=== PATIENT | male | born 1965 | race Caucasian/White ===

== ENCOUNTER → 2021-10-27 09:58 | Outpatient (BNVA) | payer MEDICARE, SELFPAY | PROVIDERS: Visit Provider Family Medicine | DX: M79.641 Pain in right hand (principal); M79.642 Pain in left hand; M79.7 Fibromyalgia; F32.9 Major depressive disorder, single episode, unspecified; K51.919 Ulcerative colitis, unspecified with unspecified complications; K21.9 Gastro-esophageal reflux disease without esophagitis; Z68.27 Body mass index [BMI] 27.0-27.9, adult | CPT/HCPCS: 80053; 85025; 85651; 86038; 86140; 86200; 86431 ==

== ENCOUNTER → 2022-09-12 09:27 | Outpatient (BNVA) | payer MEDICARE, SELFPAY | PROVIDERS: PCP Family Medicine; Visit Provider Family Medicine | DX: R35.1 Nocturia (principal); Z13.6 Encounter for screening for cardiovascular disorders; K51.00 Ulcerative (chronic) pancolitis without complications; Z51.81 Encounter for therapeutic drug level monitoring | CPT/HCPCS: 80053; 80061; 84153; 85025; 86140 ==

== ENCOUNTER 2023-03-16 10:11 | Outpatient (CLI) | payer MEDICARE, SELFPAY ==
--- NOTE | 2023-03-16 10:31 | XRR_ITS ---
PROCEDURE INFORMATION: Exam: XR Right Hand Exam date and time: 03/16/2023 10:38 AM Age: 57 years old Clinical indication: Hand; Right; Patient HX: Patient has 2nd & 3rd mcp pain for 1 year TECHNIQUE: Imaging protocol: Radiologic exam of the right hand. Views: 3 or more views. COMPARISON: No relevant prior studies available. FINDINGS: Bones/joints: No fracture, dislocation or other acute bone or joint abnormality. Chronic degenerative changes are present with joint space narrowing and mild sclerosis predominantly in the 1st metacarpophalangeal joint in the DIP joint of the little finger. Soft tissues: Normal. XR/XR hand RT min 3V* [id number] IMPRESSION: Scattered degenerative disease. No acute abnormality.
== END 2023-03-16 10:12 | disposition home or self-care (01) ==
PROVIDERS: PCP Family Medicine; Visit Provider Family Medicine
DX: M79.641 Pain in right hand (principal); R93.7 Abnormal findings on diagnostic imaging of other parts of musculoskeletal system
CPT/HCPCS: 73130; 80053; 80061; 85025; 86140

== ENCOUNTER 2023-07-09 15:00 | Observation (INO) | payer MEDICARE, SELFPAY ==
[2023-07-09] VITALS (24 sets, daily range): BP systolic 112–179; BP diastolic 71–107; PULSE 62–81; RESP 15–26; TEMP 36.4–36.9; O2SAT 90–100; BMI 30.4
--- NOTE | 2023-07-09 15:02 | XR_ITS ---
WS: [id number] PORTABLE CHEST HISTORY: cp COMPARISON: None available. Lungs are clear and well expanded. Minimal blunting of the LEFT costophrenic angle. No pneumothorax. Cardiac size: Normal. Mediastinum/Aorta: Mild atherosclerosis aorta. No osseous abnormality seen. IMPRESSION: 1. No pneumonia. 2. Very minimal blunting of the LEFT costophrenic angle. Tiny effusion versus pleural thickening.
--- NOTE | 2023-07-09 15:14 | W.ED.CHESTPA ---
HPI - Chest Pain General: Chief Complaint: Chest Pain Stated Complaint: chest pain,tingling in hands/arms Time Seen by Provider: 07/09/23 15:02 Source: patient Mode of arrival: ambulatory Limitations: no limitations History of Present Illness: Patient is a 58-year-old male who presents the emergency room with chest pain. Patient states that he went to urgent care approximately 1 hour ago and was sent over here for evaluation. Patient rates chest pain a 5/10 on pain scale. Patient states chest pain started around 11 AM this morning, left chest wall radiating to bilateral wrist/hands. States chest pain originated out of nowhere it was not exerting himself. Does report that he has a past medical history of anxiety but this seemed to feel different. States that he did take a Tums immediately with symptoms but did not have any relief. Denies any other worsening or improving factors. Denies any nausea, vomiting, shortness of breath, or abdominal pain. No other complaints at this time. MD complaint: chest pain Onset (ago): hour(s) (4) Pain location: left chest Pain scale (0-10): 5 Associated symptoms: Reports no associated symptoms; Deny abdominal pain, dyspnea, fever(s), nausea or vomiting Review of Systems Const: Denies: fever(s) or chills Eyes: Denies: change in vision or blurry vision ENMT: Denies: throat pain or mouth pain Card: Reports: chest pain Resp: Denies: dyspnea or productive cough GI: Denies: abdominal pain, nausea or vomiting : Denies: flank pain or difficulty urinating Musc: Denies: neck pain or back pain Neuro: Denies: headache(s) Psych: Reports: anxiety PFSH ED PFSH: Medical History Fibromyalgia Major depression Ulcerative colitis Surgical History H/O vasectomy History of appendectomy History of shoulder surgery Right - x3 (scope) History of tonsillectomy Family History Other Aortic aneurysm Brain aneurysm Social History Smoking and tobacco status: former smoker Alcohol intake: current Alcohol intake frequency: 0-2 Drinks per Day Alcohol type: beer and hard liquor Substance/Drug Use: current Other substance/drug use details: THC IN PAST - USES CBD OIL NOW Physical Exam Const: COMMON NORMALS: patient oriented x3 and alert GENERAL APPEARANCE: cooperative ORIENTATION/CONSCIOUSNESS: Yes awake HENMT: COMMON NORMALS: normocephalic HEAD & SCALP: normal to inspection and normocephalic Eye: COMMON NORMALS: Equal, round and reactive pupils present and EOMs intact bilaterally PUPIL: Yes Equal, round and reactive pupils present Neck/C-Spine: COMMON NORMALS: full ROM and no JVD Lymph: LYMPHATIC: no lymphadenopathy noted Chest: CHEST: Yes Symmetrical chest wall rise Resp: COMMON NORMALS: normal respiratory effort and clear to auscultation bilaterally EFFORT & INSPECTION: Yes symmetric chest movement AUSCULTATION: clear to auscultation bilaterally Cardio: COMMON NORMALS: no JVD, regular rate, S1 normal heart sound present and Peripheral pulses 2+ throughout RATE: regular rate HEART SOUNDS: S1 normal heart sound present PERIPHERAL PULSES: Peripheral pulses 2+ throughout GI: COMMON NORMALS: Normal to inspection, nondistended, normoactive bowel sounds present : COMMON NORMALS: Yes no CVA tenderness BLADDER/KIDNEY EXAM: Yes no CVA tenderness Back/Pelvis: COMMON NORMALS: no CVA tenderness Extremity: GENERAL: Yes normal exam except as noted Neuro: COMMON NORMALS: patient oriented x3 SENSORIUM/ORIENTATION: Yes alert Psych: MOOD & AFFECT: Yes anxious Course Vital Signs: Vital signs: Vital Signs Temperature 97.6 F 07/09/23 15:01 Pulse Rate 65 07/09/23 16:14 Respiratory Rate 19 H 07/09/23 16:14 Blood Pressure 135/76 07/09/23 16:14 Pulse Oximetry 92 07/09/23 16:14 Oxygen Delivery Me thod Room Air 07/09/23 16:14 MDM - Chest Pain Medical Decision Making Patient presents for chest pain EKG here shows T wave inversion in V1 first troponin 26 his pain here is resolved after nitro will admit for observation for ACS rule out no signs of dissection or pulmonary embolism. Medical Records I reviewed the patient's medical records. Lab Data I reviewed the patient's lab results. 07/09/23 15:54 07/09/23 15:54 Laboratory Results WBC 8.25 10^3/uL (3.29-11.43) 07/09/23 15:54 RBC 4.69 10^6/uL (3.85-5.65) 07/09/23 15:54 Hgb 14.60 g/dL (11.27-16.99) 07/09/23 15:54 Hct 43.7 % (37-53) 07/09/23 15:54 MCV 93.2 fl (82-101) 07/09/23 15:54 MCH 31.1 pg (27-33) 07/09/23 15:54 MCHC 33.4 g/dL (30-55) 07/09/23 15:54 RDW 12.6 % (12.1-15.1) 07/09/23 15:54 Plt Count 327 10^3/cmm (157-399) 07/09/23 15:54 MPV 11.5 fL (7.4-10.4) H 07/09/23 15:54 Neut % (Auto) 72.2 % 07/09/23 15:54 Lymph % (Auto) 15.6 % 07/09/23 15:54 Evangeline % (Auto) 10.1 % 07/09/23 15:54 Eos % (Auto) 1.3 % 07/09/23 15:54 Baso % (Auto) 0.4 % 07/09/23 15:54 Neut # (Auto) 5.96 10^3/uL (1.8-7.7) 07/09/23 15:54 Lymph # (Auto) 1.3 10^3/uL (0.8-4.8) 07/09/23 15:54 Evangeline # (Auto) 0.8 10^3/uL (0.2-0.9) 07/09/23 15:54 Eos # (Auto) 0.1 10^3/uL (0.0-0.8) 07/09/23 15:54 Baso # (Auto) 0.0 10^3/uL (0.0-0.1) 07/09/23 15:54 Nucleated RBC % (auto) 0 % 07/09/23 15:54 Nucleated RBCs # 0.0 /100WBC 07/09/23 15:54 PT 12.60 SECONDS (12.1-14.9) 07/09/23 15:54 INR 0.91 (0.8-1.2) 07/09/23 15:54 Sodium 138 mmol/L (136-145) 07/09/23 15:54 Potassium 4.1 mmol/L (3.5-5.1) 07/09/23 15:54 Chloride 103 mmol/L (98-107) 07/09/23 15:54 Carbon Dioxide 26 mmol/L (22-29) 07/09/23 15:54 Anion Gap 13.1 (5-19) 07/09/23 15:54 BUN 19 mg/dL (6-20) 07/09/23 15:54 Creatinine 1.1 mg/dL (0.7-1.2) 07/09/23 15:54 GFR Calculation 68.5 mL/min (90-130) L 07/09/23 15:54 Glucose 91 mg/dL (65-115) 07/09/23 15:54 Calculated Osmolality 288 mOsm/kg (285-295) 07/09/23 15:54 Calcium 9.7 mg/dL (8.5-10.5) 07/09/23 15:54 Total Bilirubin 0.2 mg/dL (0.15-1.2) 07/09/23 15:54 AST 24 U/L (0-40) 07/09/23 15:54 ALT 28 U/L (0-41) 07/09/23 15:54 Alkaline Phosphatase 57 U/L (40-130) 07/09/23 15:54 Troponin T Baseline 26 ng/L (0-15) H 07/09/23 15:54 Total Protein 6.7 g/dL (6.6-8.7) 07/09/23 15:54 Albumin 4.4 g/dL (3.5-5.2) 07/09/23 15:54 Globulin 2.3 g/dL (1.3-4.6) 07/09/23 15:54 Lipase 44 U/L (13-60) 07/09/23 15:54 All radiology interpretation(s) finalized by discharge Discharge Plan Discharge Patient Disposition: Placed in Observation Admit Provider: Evelio Cardona Clinical Impression: Chest pain Coding Level of Care Code ED Waters[place] Coordinator for Fadumog Oksana
--- NOTE | 2023-07-09 15:21 | ECG_ITS ---
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 Measurements Intervals [place] Rate: 67 P: 39 MD: 154 QRS: -1 QRSD: 94 T: 33 QT: 386 QTc: 410 Interpretive Statements SINUS RHYTHM POSSIBLE LEFT ATRIAL ENLARGEMENT [-0.1mV P-WAVE IN V1/V2] LOW QRS VOLTAGE IN PRECORDIAL LEADS [QRS DEFLECTION < 1.0 mV IN CHEST LEADS] MINIMAL ST DEPRESSION [0.025+ mV ST DEPRESSION] No previous ECG available for comparison Electronically Signed On 07-09-2023 15:28:41 CDT by Hari Quiñones M.D. [id number]
[2023-07-09] MEDS: aspirin 81 mg Chew Tablet 324 MG PO (15:33)
[2023-07-09] MEDS: nitroglycerin 0.4 mg sublingual Tablet SUBLINGUAL (15:35)
[2023-07-09 16:05] LABS: Basophils % 0.4 %; Eosinophils # 0.1 10^3/uL (0.0-0.8); Eosinophils % 1.3 %; Hematocrit 43.7 % (37-53); Lymphocytes # 1.3 10^3/uL (0.8-4.8); Lymphocytes % 15.6 %; Mean Corpuscular HGB Conc 33.4 g/dL (30-55); Mean Corpuscular Hemoglobin 31.1 pg (27-33); Mean Corpuscular Volume 93.2 fl (82-101); Mean Platelet Volume 11.5 fL (7.4-10.4); Monocytes # 0.8 10^3/uL (0.2-0.9); Monocytes % 10.1 %; Neutrophils # 5.96 10^3/uL (1.8-7.7); Neutrophils % 72.2 %; Nucleated Red Blood Cells % 0 %; Platelet Count 327 10^3/cmm (157-399); Red Blood Count 4.69 10^6/uL (3.85-5.65); Red Cell Distribution Width 12.6 % (12.1-15.1); White Blood Count 8.25 10^3/uL (3.29-11.43)
[2023-07-09 16:21] LABS: INR 0.91 (0.8-1.2)
[2023-07-09 16:26] LABS: Alanine Aminotransferase 28 U/L (0-41); Albumin Level 4.4 g/dL (3.5-5.2); Alkaline Phosphatase 57 U/L (40-130); Anion Gap 13.1 (5-19); Aspartate Amino Transferase 24 U/L (0-40); Blood Urea Nitrogen 19 mg/dL (6-20); Calcium 9.7 mg/dL (8.5-10.5); Carbon Dioxide 26 mmol/L (22-29); Chloride 103 mmol/L (98-107); Globulin 2.3 g/dL (1.3-4.6); Glomerular Filtration Rate 68.5 mL/min (90-130); Glucose 91 mg/dL (65-115); Lipase 44 U/L (13-60); Osmolality Calculated 288 mOsm/kg (285-295); Potassium 4.1 mmol/L (3.5-5.1); Sodium 138 mmol/L (136-145); Total Bilirubin 0.2 mg/dL (0.15-1.2); Total Protein 6.7 g/dL (6.6-8.7)
[2023-07-09 16:27] LABS: Troponin(5th) Baseline 26 ng/L (0-15)
--- NOTE | 2023-07-09 16:56 | PM.HP ---
Providers/Chief Complaint Admitting Physician: Evelio Cardona MD Primary Care Provider: Kym Murphy DO Chief Complaint: chest pain,tingling in hands/arms History of Present Illness Antolin Garcia is a 58 year old male with a past medical history significant for ulcerative colitis on Humira, dyslipidemia, and fibromyalgia who presents to the emergency department with chest pain. Reports onset this morning around 11 AM. Took Tums without any change. Describes as crushing pressures sensation under sternum. He reports it felt like a large animal sitting on his chest. He states symptoms were severe. Endorses associated nausea, shortness of breath, nausea, and anxiety. Reports nitroglycerin improved the pain. He denies prior known history of heart disease. He denies prior stress test or cardiac cath. Of note, patient is Jehovah Witness and does not accept blood products. Review of Systems Narrative: A complete review of systems was obtained and is negative except as stated in HPI. Medications/Allergies Home Medications Medication Instructions Recorded Confirmed Last Taken Type MERCAPTOPURINE 1.5 tab PO DAILY 12/29/19 07/09/23 07/09/23 History adalimumab 40 mg/0.8 mL 40 mg SUBCUT Q14D 12/29/19 07/09/23 07/05/23 History subcutaneous syringe kit (Humira) omeprazole magnesium 20 mg 20 mg PO QAM 03/16/23 07/09/23 07/09/23 History capsule,delayed release atorvastatin 20 mg tablet 20 mg PO BEDTIME 07/09/23 07/09/23 07/08/23 History Allergies Allergy/AdvReac Type Severity Reaction Status Date / Time prednisone Allergy CAUSES ME Verified 07/09/23 14:35 TO BE A JERK pregabalin [From Lyrica] Allergy MADE ME Verified 07/09/23 14:35 TRY TO COMMIT SUICIDE Sulfa (Sulfonamide AdvReac Mild RASH Verified 07/09/23 14:35 Antibiotics) PFSH Acute PFSH: Medical History Bilateral hand pain Encounter for screening for cardiovascular disorders Fibromyalgia Major depression Nocturia Right hand pain Ulcerative colitis Wart of hand Surgical History H/O vasectomy History of appendectomy History of shoulder surgery Right - x3 (scope) History of tonsillectomy Family History Other Aortic aneurysm Brain aneurysm Social History Smoking and tobacco status: former smoker Alcohol intake: current Alcohol intake frequency: 0-2 Drinks per Day Alcohol type: beer and hard liquor Substance/Drug Use: current Other substance/drug use details: THC IN PAST - USES CBD OIL NOW Vitals/I&O/Wt Last Vital Signs Temp 97.6 F 07/09/23 15:01 Pulse 65 07/09/23 16:14 Resp 19 H 07/09/23 16:14 BP 135/76 07/09/23 16:14 Pulse Ox 92 07/09/23 16:14 O2 Del Method Room Air 07/09/23 16:14 Weight last 48 hrs Weight 90.718 kg Physical Exam Narrative: General: Patient is awake and alert. Pleasant. Head: Normocephalic. Atraumatic. EOM intact. Neck: No JVD. Cardiovascular: RRR. No gallops. No murmurs. No peripheral edema. Lungs: Clear to auscultation, no use of accessory muscles, no crackles or wheezes. Skin: No jaundice. No rashes. Abdomen: Normal bowel sounds, abdomen soft and nontender. Extremities: No cyanosis or clubbing. Musculoskeletal: No swollen or erythematous joints. Neurological: Moves all 4 extremities. No myoclonus. Data 07/09/23 15:54 07/09/23 15:54 A&P Assessment and plan (1) Chest pain: History concerning for cardiac chest pain Admit to observation Telemetry Echo Loaded w/ aspirin, start 81 mg daily Continue home statin Check A1c Hold off on beta pablo given borderline heart rate Cardiology consult (2) Dyslipidemia: Lipid panel in AM Continue home statin (3) Ulcerative colitis: On Humira Qualifiers: Ulcerative colitis location: unspecified ulcerative colitis location Digestive disease complication type: unspecified complication Qualified Code(s): K51.919 - Ulcerative colitis, unspecified with unspecified complications (4) GERD (gastroesophageal reflux disease): Continue PPI Qualifiers: Esophagitis presence: without esophagitis Qualified Code(s): K21.9 - Gastro-esophageal reflux disease without esophagitis Plan DVT ppx: Lovenox Code: Full Attestations Medical Necessity Statement*: Pt presents w/ chest pain concerning for cardiac chest pain with elevated cardiac enzyme with expected hospitalization not to cross two midnight for ischemic workup. Coding Level of Care Code Acute Code for Chg Fwd Diagnoses Chest pain R07.9 Dyslipidemia E78.5 Ulcerative colitis K51.919 Ulcerative colitis location: unspecified ulcerative colitis location Digestive disease complication type: unspecified complication GERD (gastroesophageal reflux disease) K21.9 Esophagitis presence: without esophagitis
--- NOTE | 2023-07-09 17:01 | ECG_ITS ---
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 Measurements Intervals [place] Rate: 66 P: 37 UT: 166 QRS: -8 QRSD: 94 T: 43 QT: 396 QTc: 415 Interpretive Statements SINUS RHYTHM Compared to ECG 07/09/2023 15:21:52 ST (T wave) deviation no longer present Electronically Signed On 07-09-2023 19:34:07 CDT by Hari Quiñones M.D. [id number]
--- NOTE | 2023-07-09 17:21 | USCV_ITS ---
Jose Antolin Age: 58 Gender: M : 1965 Exam Date: 07/09/2023 19:05 Ordering Phys: Evelio Cardona MD Technologist: TAY [place] [facility] [place]: chest pain today 02/07. No history of cardiac intervention per patient. BP: 140 / 88 HR: 64 Rhythm: Sinus Technical Quality: Adequate MEASUREMENTS (Male / Female) Normal Values 2D ECHO LV Diastolic Diameter PLAX 4.3 cm 4.2 - 5.9 / 3.9 - 5.3 cm LV Systolic Diameter PLAX 2.9 cm IVS Diastolic Thickness 1.6 cm 0.6 - 1.0 / 0.6 - 0.9 cm IVS Systolic Thickness 2.0 cm LVPW Diastolic Thickness 1.2 cm 0.6 - 1.0 / 0.6 - 0.9 cm LVPW Systolic Thickness 1.4 cm LVOT Diameter 2.2 cm LV Ejection Fraction 2D Teich 62.6 % LV Ejection Fraction MOD 2C 71.9 % LV Ejection Fraction 2C AL 72.2 % LA Diameter 4.8 cm LA Width 2.9 cm LA Height 5.3 cm RA Width 4.1 cm RA Height 4.4 cm Aorta at Sinotubular Diameter 3.4 cm IVC Diameter 2.1 cm M-MODE Aortic Annulus Diameter 4.3 cm LA Ao Ratio MM 1.1 MV E Point Septal Separation 0.6 cm DOPPLER AV Peak Velocity 98.0 cm/s LVOT Peak Velocity 85.0 cm/s AV Area Cont Eq vti 3.8 cm squared AV Area Cont Eq pk 3.3 cm squared MV Peak Velocity 95.0 cm/s MV Area PHT 2.9 cm squared Mitral E to A Ratio 0.9 MV E' Velocity 35.5 cm/s Mitral E to MV E' Ratio 9.9 Mitral E to LV E' Lateral Ratio 13.0 Mitral E to LV E' Septal Ratio 8.0 TR Peak Velocity 203.0 cm/s TR Peak Gradient 16.5 mmHg TV Peak E Velocity 48.0 cm/s Right Atrial Pressure 5.0 mmHg Pulmonary Artery Systolic Pressu 21.5 mmHg PV Peak Velocity 83.0 cm/s RV Acceleration Time 0.1 s RV Ejection Time 0.3 s RV AcT/ET 0.3 FINDINGS Left Ventricle Left ventricle is normal in size. LV systolic function is normal with EF of 55 to 60%. No regional wall motion abnormalities are seen. Grade 1 diastolic dysfunction Right Ventricle Normal in size and function Right Atrium Normal in size Left Atrium Normal in size Mitral Valve Structurally normal mitral valve. Aortic Valve Structurally normal aortic valve. No significant stenosis or regurgitation. Tricuspid Valve Mild tricuspid regurgitation. Pulmonary artery systolic pressure is normal. Pulmonic Valve Not well visualized. Pericardium Normal Aorta Mildly dilated with diameter of 3.75cm IVC Normal in size CONCLUSIONS LV systolic function is normal with EF of 55 to 60%. Grade 1 diastolic dysfunction. Mild tricuspid regurgitation. Mildly dilated aorta with diameter of 3.75 cm No comparison studies are avilable. Hari Quiñones MD (Electronically Signed) Final Date: 10 July 2023 12:08 S
--- NOTE | 2023-07-09 19:18 | P.CONIM_ITS ---
Providers/Reason For Consult Consulting Physician/Specialty*: Hari Quiñones MD/ Cardiology Reason for Consult*: NSTEMI Requesting Physician: Dr Cardona Attending Physician: Evelio Cardona MD Primary Care Provider: Kym Murphy DO History of Present Illness History of Present Illness Antolin Garcia is a 58 year old male with past medical history of ulcerative colitis, hyperlipidemia who presented to hospital with severe substernal chest pain. According to patient he was working when started noticing substernal pressure and heartburn. It got worse over time and was severe. It radiated to both wrists and jaw. Once he received nitro normal the pain improved. Initial troponin is 26 and has trended up to over 300 at 6 hours. EKG demonstrated normal sinus rhythm with nonspecific ST-T wave changes. He is chest pain-free at this time. Review of Systems Narrative: A complete review of systems was obtained and is negative except as stated in HPI. Const: Denies: fever(s) or chills Eyes: Denies: change in vision or blurry vision ENMT: Denies: throat pain or mouth pain Card: Reports: chest pain Resp: Denies: dyspnea or productive cough GI: Denies: abdominal pain, nausea or vomiting : Denies: flank pain or difficulty urinating Musc: Denies: neck pain or back pain Neuro: Denies: headache(s) Psych: Reports: anxiety Medications/Allergies Home Medications Medication Instructions Recorded Confirmed Last Taken Type MERCAPTOPURINE 1.5 tab PO DAILY 12/29/19 07/09/23 07/09/23 History adalimumab 40 mg/0.8 mL 40 mg SUBCUT Q14D 12/29/19 07/09/23 07/05/23 History subcutaneous syringe kit (Humira) omeprazole magnesium 20 mg 20 mg PO QAM 03/16/23 07/09/23 07/09/23 History capsule,delayed release atorvastatin 20 mg tablet 20 mg PO BEDTIME 07/09/23 07/09/23 07/08/23 History Allergies Allergy/AdvReac Type Severity Reaction Status Date / Time prednisone Allergy CAUSES ME Verified 07/09/23 14:35 TO BE A JERK pregabalin [From Lyrica] Allergy MADE ME Verified 07/09/23 14:35 TRY TO COMMIT SUICIDE Sulfa (Sulfonamide AdvReac Mild RASH Verified 07/09/23 14:35 Antibiotics) Current Medications Generic Name Dose Route Start Last Admin Trade Name Freq PRN Reason Stop Dose Admin Nitroglycerin 0.4 mg 07/09/23 15:13 07/09/23 15:35 Nitroglycerin 0.4 Mg Sublingual Tablet SUBLINGUAL 0.4 mg Q5M PRN Administration CHEST PAIN PFSH Acute PFSH: Medical History Bilateral hand pain Fibromyalgia Major depression Nocturia Right hand pain Ulcerative colitis Wart of hand Surgical History H/O vasectomy History of appendectomy History of shoulder surgery Right - x3 (scope) History of tonsillectomy Family History Other Aortic aneurysm Brain aneurysm Social History Smoking and tobacco status: former smoker Alcohol intake: current Alcohol intake frequency: 0-2 Drinks per Day Alcohol type: beer and hard liquor Substance/Drug Use: current Other substance/drug use details: THC IN PAST - USES CBD OIL NOW Vitals/I&O/Wt Last Vital Signs Temp 98.5 F 07/09/23 17:42 Pulse 65 07/09/23 17:42 Resp 15 07/09/23 17:42 BP 140/88 07/09/23 17:00 Pulse Ox 96 07/09/23 17:42 O2 Del Method Room Air 07/09/23 17:43 Weight last 48 hrs Weight 200 lb Physical Exam Narrative: GENERAL: Patient is alert, awake and oriented x3. [] NECK: No jugular vein distension. [] HEENT: No cyanosis. No icterus. No pallor. [] HEART: Regular S1 and S2. No murmur, rub or gallop. [] LUNGS: Clear to auscultate bilaterally. [] CENTRAL NERVOUS SYSTEM: Grossly nonfocal. [] EXTREMITIES: Lower extremities with 1+ edema bilaterally. Pulses palpable in the lower extremities, both dorsalis pedis and posterior tibial. [] Data 07/10/23 03:47 07/10/23 03:47 A&P Assessment and plan (1) NSTEMI (non-ST elevated myocardial infarction): (2) Dyslipidemia: (3) GERD (gastroesophageal reflux disease): Qualifiers: Esophagitis presence: without esophagitis Qualified Code(s): K21.9 - Gastro-esophageal reflux disease without esophagitis (4) Major depression: (5) Ulcerative colitis: Qualifiers: Ulcerative colitis location: unspecified ulcerative colitis location Digestive disease complication type: unspecified complication Qualified Code(s): K51.919 - Ulcerative colitis, unspecified with unspecified complications (6) Fibromyalgia: Plan Patient's presentation is consistent with non-ST elevation OR. We will proceed with coronary angiogram with possible percutaneous coronary intervention. Risks and benefits of the procedure have been discussed with the patient. He is a Restorationism and does not want any blood products. Continue aspirin. Plavix loaded. Lovenox administered. Echocardiogram ordered. Thank you for involving us with care of this patient. We will continue to follow. Please call with questions. Consult Attestations Medical Necessity Statement: Care expected to cross 2 midnights. Coding Level of Care Code Acute Code for [facility] Diagnoses NSTEMI (non-ST elevated myocardial infarction) I21.4 Dyslipidemia E78.5 GERD (gastroesophageal reflux disease) K21.9 Esophagitis presence: without esophagitis Major depression F32.9 Ulcerative colitis K51.919 Ulcerative colitis location: unspecified ulcerative colitis location Digestive disease complication type: unspecified complication Fibromyalgia M79.7
[2023-07-09 19:30] LABS: Estmated Average Glucose 105; Hemoglobin A1C 5.3 % (4.0-6.0)
[2023-07-09] MEDS: atorvastatin 40 mg Tablet 20 MG PO (20:06)
--- NOTE | 2023-07-09 20:24 | PC.NURSE ---
Refusal of Lovenox Patient refused lovenox injection, he states he is deathly afraid of needles. Purpose of medication, risks of refusal, and injection information provided. Patient verbalized understanding but stated he still did not want the medication. Dr. Edwards notified; no new orders received.
[2023-07-09 20:31] LABS: Troponin 5 2HR 188.9 ng/L (0-15); Troponin 5 2HR Delta 162.9 ABS# (0-10)
[2023-07-09] MEDS: enoxaparin 100 mg/mL Syringe 90 MG SUBCUT (21:10)
--- NOTE | 2023-07-09 21:10 | PC.NURSE ---
Troponin/Lovenox Patient's 2HR troponin resulted critical at 188.9 with a delta of 162.9. Dr. Edwards notified of critical results. More education provided regarding benefits and risks of taking the lovenox shot; patient verbalized understanding and agreed to take lovenox injection. Dr. Edwards notified of agreement to take the lovenox injection; no other orders received.
[2023-07-09 22:17] LABS: Troponin 5 6HR 352.9 ng/L (0-15); Troponin 5 6HR Delta 326.9 ng/L (0-12)
--- NOTE | 2023-07-09 22:47 | PC.NURSE ---
Addendum entered by Chela Maldonado RN 07/09/23 22:51: Dr. Quiñones also notified of administration of 90 mg lovenox at 2110. No new orders received. Original Note: Troponin Patient's 6HR troponin further elevated at 352.9 with a delta of 326.9. Dr. Quiñones notified; order received to make NPO after 0000 to prep for possible heart cath tomorrow and administer 600 mg plavix PO once now. See MAR for medication administration.
[2023-07-09] MEDS: clopidogrel 300 mg Tablet 600 MG PO (22:59)
[2023-07-10] VITALS (58 sets, daily range): BP systolic 103–170; BP diastolic 49–110; PULSE 54–81; RESP 12–26; TEMP 36.3–37.2; O2SAT 90–97; BMI 29.0
[2023-07-10 04:25] LABS: Basophils % 0.6 %; Eosinophils # 0.2 10^3/uL (0.0-0.8); Eosinophils % 3.2 %; Hematocrit 46.5 % (37-53); Lymphocytes # 1.6 10^3/uL (0.8-4.8); Mean Corpuscular HGB Conc 32.9 g/dL (30-55); Mean Corpuscular Hemoglobin 31.4 pg (27-33); Mean Corpuscular Volume 95.5 fl (82-101); Mean Platelet Volume 11.6 fL (7.4-10.4); Monocytes # 0.9 10^3/uL (0.2-0.9); Monocytes % 12.6 %; Neutrophils # 4.17 10^3/uL (1.8-7.7); Neutrophils % 59.9 %; Nucleated Red Blood Cells % 0 %; Platelet Count 328 10^3/cmm (157-399); Red Blood Count 4.87 10^6/uL (3.85-5.65); Red Cell Distribution Width 12.5 % (12.1-15.1); White Blood Count 6.96 10^3/uL (3.29-11.43)
[2023-07-10 04:45] LABS: Blood Urea Nitrogen 18 mg/dL (6-20); Calcium 9.6 mg/dL (8.5-10.5); Carbon Dioxide 27 mmol/L (22-29); Chloride 106 mmol/L (98-107); Glucose 98 mg/dL (65-115); Magnesium 2.2 mg/dL (1.7-2.3); Osmolality Calculated 294 mOsm/kg (285-295); Phosphorus 4.3 mg/dL (2.5-4.5); Sodium 141 mmol/L (136-145)
[2023-07-10 04:47] LABS: Chol HDL Ratio 5.24 mg/dL (1.0-5.00); Cholesterol 194 mg/dL (0-200); HDL Cholesterol 37 mg/dL (60-100); LDL Cholesterol Calculated 127 mg/dL (50-129); LDL HDL Ratio 3.43 RATIO (0.00-3.22); Triglycerides 149 mg/dL (0-150)
--- NOTE | 2023-07-10 07:02 | XACV_ITS ---
Exam Room: [facility] Ht: 173 cm Wt: 86 kg BSA: 2.05 m2 Gender: Male : 1965 Any Known Allergies: Sulfa Exam Priority: Routine Procedure(s): Procedure Description: Diagnostic procedure Procedure Description: PCI procedure Procedure Description: Drug Eluting Coronary Stent Procedure Description: PTCA Procedure Description: Miscellaneous Procedure Description: ACT Procedure Description: Coronary Angiography Diagnostic Cath Status: Urgent Diagnostic Findings * Left Anterior Descending has mild luminal irregularities. * Circumflex has mild luminal irregularities. * Mid Right Coronary Artery to Distal Right Coronary Artery: subtotal thrombotic occlusion, JULIEN: 3 flow. Large thrombus burden. * Left Main: luminal irregularities 20% stenosis, JULIEN: 3 flow. * Coronary angiography shows right dominance. PCI Status: Urgent PCI Indication: NSTE - ACS Interventional Findings * Procedure detail: We engaged RCA with a JR4 guide catheter. IV heparin was administered to maintain an ACT above 250 seconds. A 0.014 run-through guidewire was used to cross the stenosis and was placed in PLV branch. 2.5 x 12 mm semicompliant balloon was used to predilate the stenosis. We then predilated the stenosis with 3.5x12 semi compliant balloon. This was followed by placement of 4.0x38 mm resolute Vee drug-eluting stent. We postdilated the proximal part of stent with 4.0x8 mm NC balloon. At this time final angiogram was performed that showed excellent stent expansion, JULIEN-3 flow and no residual stenosis. Guidewire and guide catheter were removed. Patient left the Ambulance Assistant in a stable condition. . * Mid Right Coronary Artery to Distal Right Coronary Artery: 99% stenosis treated with a AB TREK 2.50X12 RX BALLOON, AB TREK 3.50X12 RX BALLOON, ION R VEE 4.0X38 SCAR, and T WENDY EUPHORA RX [id number] BALLOON. 0% residual stenosis, JULIEN: 3 flow. Conclusions 1. Subtotal 2. thrombotic occlusion of mid RCA status post PCI with 1 stent.. 3. Mid Right Coronary Artery to Distal Right Coronary Artery was treated with a Balloon, Balloon, Drug Eluting Stent, and Balloon. Recommendations * Dual antiplatelet therapy with aspirin and plavix for atleast 1 year. * High intensity statin therapy. * Outpatient cardiology follow up in 7-10 days. Interventional RX Recommendation: PCI w/o planned CABG Diagnostic RX Recommendation: PCI w/o planned CABG Anticoagulation: Heparin Pressures Phase:Rest AO : 122 / 80 ( 100 ) @ 11:32:00 AM 106 / 72 ( 89 ) @ 11:34:00 AM 103 / 63 ( 84 ) @ 11:39:00 AM 89 / 61 ( 75 ) @ 11:44:00 AM 107 / 70 ( 88 ) @ 11:52:00 AM Clinical Evaluation EBL: 5mL-10mL Procedural Details Procedure Consent Obtained. Pre-Procedure Time Out. Identified patient by full name and date of as verbalized by the patient/guarantor. Does the consent match the physician's order: Yes. Accurate & Complete Informed Consent: Yes. Inpatient/Outpatient History & Physical on Chart: Yes. If H&P is completed, is and addenduem needed: No; If yes, is the addendum complete: N/A. Visualize and Verify Site with Patient/Guarantor: N/A. Relevant Radiology Images available: Yes. Pre-op teaching completed and patient verbalized understanding. The risks, benefits, and alternatives of sedation and/or procedure were discussed by physician. The patient agrees to continue. Procedure started. Current Diagnosis : NSTEMI. [facility] Clinical Fraility Score: 3: Managing Well. Ambulance Assistant Indications: ACS > 24 hours. Chest Pain Symptom Assessment: Atypical Angina. Correct patient, site and procedure confirmed by cath team. Current diagnosis: NSTEMI. PERRLA. Strong, equal hand service electrician bilaterally. Lungs clear x 5 lobes. IV Site on Arrival: 18 gauge in the left anticubital. IV Fluids: 0.9% NaCl at KVO. 0 mL infused prior to laborer orchard. Pre Procedural Pulses: bilateral dorsalis pedis was 2+. Pre Procedural Pulses: bilateral posterior tibial was 2+. Pre Procedural Pulses: right radial was 2+. Oxygen started at 2liters/min via nasal canula. right groin was prepped with chloroprep then draped in the usual sterile fashion. right radial was prepped with chloroprep then draped in the usual sterile fashion. Baseline sample Acquired. HR: 53 BPM. Physician arrived. Physician scrubbed in. Immediate Pre-Procedure Time Out. Correct Patient: Yes; Correct Procedure: Yes; Correct Site: Yes; Correct Patient Position: Yes; Correct Supplies: Yes; Dried Flammable Prep: Yes; Blood Products Available: N/A;. A 20 gauge IV was started in the left wrist using aseptic technique. Lidocaine 1% infiltrated to the right radial. Arterial access obtained. A 5 sri lankan TIG catheter in over wire. Multiple views taken of left coronary artery. Catheter redirected to the RCA. Multiple views taken of right coronary artery. Catheter removed over the exchange wire. 6 sri lankan JR 4 guide catheter was inserted over the wire. Runthrough guidewire was advanced through the guide catheter to lesion in the mid RCA. Inflation number : 1 A AB TREK 2.50X12 RX BALLOON was prepped and advanced across the Mid RCA , then inflated to 8 RICK for 0:13 seconds. Inflation number: 2 The AB TREK 2.50X12 RX BALLOON was reinflated across the Mid RCA, to 10 RICK for 0:13 seconds. Balloon out. Inflation number : 3 A AB TREK 3.50X12 RX BALLOON was prepped and advanced across the Mid RCA , then inflated to 8 RICK for 0:15 seconds. Inflation number: 4 The AB TREK 3.50X12 RX BALLOON was reinflated across the Mid RCA, to 8 RICK for 0:12 seconds. Inflation number: 5 The AB TREK 3.50X12 RX BALLOON was reinflated across the Mid RCA, to 8 RICK for 0:12 seconds. Balloon out. Results checked. Inflation Number : 6 A MDT R VEE 4.0X38 SCAR -Lot Number# [id number] EXP: 08/22/2024 was prepped and advanced across the Mid RCA. The stent was deployed at 12 RICK for 0:25 seconds. Stent balloon out over wire. Results checked. Inflation number : 7 A MDT NC EUPHORA RX [id number] BALLOON was prepped and advanced across the Mid RCA , then inflated to 12 RICK for 0:12 seconds. Inflation number: 8 The MDT NC EUPHORA RX [id number] BALLOON was reinflated across the Mid RCA, to 12 RICK for 0:12 seconds. Balloon out. Results checked. Wire out. Results checked. ACT drawn. Results 290 seconds. Therapeutic limits - pre-heparin administration 90-150 seconds and monitoring heparin during a vascular procedure >250 seconds. Guide catheter out. A TR Band was successful obtaining hemostatsis at the Right Radial artery insertion site. Vital chart was stopped. Post Procedure: Pulses reassessed and unchanged. PERRLA. Strong, equal hand service electrician bilaterally. No VTE prophylaxis required. Medication's Wasted: Nitro = 49.8 mg. Medication's Wasted: Heparin = 3000 units. Total IV fluids: 53 mL. Post-op diagnosis: CAD. Complications: None. Estimated blood loss: 5mL-10mL. Responsiveness - Normal response to verbal stimuli; alert and oriented, PERRLA. Airway - Unaffected, no intervention required; spontaneous ventilation. Circulation: W/N/L, pulses unchanged. Nausea/Vomiting: No. Procedure completed. Patient transferred by wheelchair to CPRU. Access Site Site: Right Radial artery Sheath Size: 6 Fr Hemostasis Method: TR Band Hemostasis Success: Successful Procedure Medications Start: 10:28 AM Stop: 10:28 AM Medication: Versed Amount: 1 mg Route: I.V. Start: 10:28 AM Stop: 10: AM Medication: Fentanyl Amount: 50 mcg Route: I.V. Start: 10:29 AM Stop: 10: AM Medication: Nitrogylcerin Amount: 200 mcg Route: I.A. Start: 10:31 AM Stop: 10: AM Medication: Heparin Amount: 5000 units Route: I.V. Start: 10:37 AM Stop: 10:37 AM Medication: Versed Amount: 1 mg Route: I.V. Start: 10:37 AM Stop: 10:37 AM Medication: Fentanyl Amount: 50 mcg Route: I.V. Start: 10:37 AM Stop: 10:37 AM Medication: Heparin Amount: 3000 units Route: I.V. Start: 10:47 AM Stop: 10:47 AM Medication: Heparin Amount: 1000 units Route: I.V. I, the attending physician, have reviewed and verified all procedure medications. Yes, all medications given per verbal order History/Risk Factors Hypertension: No Dyslipidemia: Yes Peripheral Arterial Disease (PAD): No Myocardial Infarction (HI): No Obesity: No Renal Disease: No Tobacco Use: Former Prior Interventions PCI: No CABG: No Valve Surgery: No Report Signatures Finalized by Hari Quiñones MD on 07/22/2023 11:08 AM
--- NOTE | 2023-07-10 10:12 | W.PM.OPSUD ---
Surgery/Procedure H&P Update DATE OF PROCEDURE: July 10, 2023 DATE H&P PERFORMED: 07/09/23 H&P UPDATE INFORMATION: I have reviewed H&P completed within last 30 days, I have examined patient prior to procedure and No changes to prior documentation PREOP DIAGNOSIS: NSTEMI PRIMARY INDICATION FOR PROCEDURE: NSTEMI PLANNED PROCEDURE: Left heart cath with possible percutaneous coronary intervention PATIENT REASSESSED PRIOR TO SEDATION, WITH NO CHANGE NOTED: Yes PHYSICAL EXAM: alert, oriented x 3, clear to auscultation bilaterally and regular rate & rhythm AIRWAY EVAL/ANESTHESIA PLAN: normal airway, ASA III, Local Anesthesia, Risks, benefits & alternatives of sedation and/or procedure discussed and Patient agrees to continue as planned ADDITIONAL INFORMATION: Moderate sedation
--- NOTE | 2023-07-10 10:37 | P.PN_ITS ---
Subjective Subjective: Patient NPO for cardiac cath. Denies chest pain overnight. Denies other new complaints. Medications: Reviewed: Yes Vitals/I&O/Wt Last Vital Signs Temp 98.1 F 07/10/23 08:00 Pulse 77 07/10/23 08:00 Resp 18 07/10/23 08:00 BP 128/86 07/10/23 06:00 Pulse Ox 94 07/10/23 07:52 O2 Del Method Room Air 07/10/23 07:52 Weight last 48 hrs Weight 86.5 kg Weight 90.718 kg Physical Exam Narrative: General: Patient is initially sleeping, but awakens to name. Head:? Normocephalic. Atraumatic. EOM intact. Neck: No JVD. Cardiovascular: RRR. No gallops. No murmurs. No peripheral edema. Lungs: Clear to auscultation, no use of accessory muscles, no crackles or wheezes. Skin: No jaundice. No rashes. Abdomen: Normal bowel sounds, abdomen soft and nontender. Extremities: No cyanosis or clubbing. Musculoskeletal: No swollen or erythematous joints. Neurological: Moves all 4 extremities. No myoclonus. Data 07/10/23 03:47 07/10/23 03:47 A&P Assessment and plan (1) NSTEMI (non-ST elevated myocardial infarction): Loaded w/ aspirin and plavix, continue DAPT daily Continue therapeutic Lovenox Continue statin NTG PRN NPO for cardiac cath today Cardiology following, d/w CARDS Echo pending Telemetry (2) Ulcerative colitis: On Humira Qualifiers: Ulcerative colitis location: unspecified ulcerative colitis location Digestive disease complication type: unspecified complication Qualified Code(s): K51.919 - Ulcerative colitis, unspecified with unspecified complications (3) Dyslipidemia: Continue statin Plan DVT ppx: Lovenox Code: Full Attestations Medical Necessity Statement*: Patient requires ongoing hospitalization for cardiac cath due to development of NSTEMI. Coding Level of Care Code Acute Code for [facility] Diagnoses NSTEMI (non-ST elevated myocardial infarction) I21.4 Ulcerative colitis K51.919 Ulcerative colitis location: unspecified ulcerative colitis location Digestive disease complication type: unspecified complication Dyslipidemia E78.5
--- NOTE | 2023-07-10 11:10 | PM.PN ---
Subjective Subjective: Patient is doing well. Chest pain-free. Coronary angiogram demonstrated 99% thrombotic subtotal occlusion of the mid RCA. He underwent successful revascularization with 1 stent. Vitals/I&O/Wt Last Vital Signs Temp 98.1 F 07/10/23 08:00 Pulse 77 07/10/23 08:00 Resp 18 07/10/23 08:00 BP 128/86 07/10/23 06:00 Pulse Ox 94 07/10/23 07:52 O2 Del Method Room Air 07/10/23 07:52 Weight last 48 hrs Weight 190 lb 11.198 oz Weight 200 lb Physical Exam Narrative: GENERAL: Patient is alert, awake and oriented x3. [] NECK: No jugular vein distension. [] HEENT: No cyanosis. No icterus. No pallor. [] HEART: Regular S1 and S2. No murmur, rub or gallop. [] LUNGS: Clear to auscultate bilaterally. [] CENTRAL NERVOUS SYSTEM: Grossly nonfocal. [] EXTREMITIES: Lower extremities with 1+ edema bilaterally. Pulses palpable in the lower extremities, both dorsalis pedis and posterior tibial. [] Data 07/10/23 03:47 07/10/23 03:47 A&P Assessment and plan (1) NSTEMI (non-ST elevated myocardial infarction): (2) Dyslipidemia: (3) GERD (gastroesophageal reflux disease): Qualifiers: Esophagitis presence: without esophagitis Qualified Code(s): K21.9 - Gastro-esophageal reflux disease without esophagitis (4) Major depression: (5) Ulcerative colitis: Qualifiers: Ulcerative colitis location: unspecified ulcerative colitis location Digestive disease complication type: unspecified complication Qualified Code(s): K51.919 - Ulcerative colitis, unspecified with unspecified complications (6) Fibromyalgia: Plan Patient underwent successful revascularization of mid RCA with 1 stent. Continue aspirin and Plavix with at least 1 year. We will observe him today in the hospital and can be discharged tomorrow. High intensity statin therapy. Echo shows normal LV systolic function. Thank you for involving us with care of this patient. We will continue to follow. Please call with questions. Attestations Medical Necessity Statement*: Care expected to cross 2 midnights. Coding Level of Care Code Acute Code for [facility] Diagnoses NSTEMI (non-ST elevated myocardial infarction) I21.4 Dyslipidemia E78.5 GERD (gastroesophageal reflux disease) K21.9 Esophagitis presence: without esophagitis Major depression F32.9 Ulcerative colitis K51.919 Ulcerative colitis location: unspecified ulcerative colitis location Digestive disease complication type: unspecified complication Fibromyalgia M79.7
[2023-07-10] MEDS: aspirin 81 mg EC Tablet PO (11:15)
[2023-07-10] MEDS: clopidogrel 75 mg Tablet PO (11:22)
--- NOTE | 2023-07-10 11:41 | PC.NURSE ---
Pt transferred to ICU room 1 via W/C. Report given to RINA Posada by Grant Nazario RN.
[2023-07-10] MEDS: metoprolol tartrate 25 mg Tablet PO (17:16)
[2023-07-10] MEDS: atorvastatin 40 mg Tablet 20 MG PO (20:18)
--- NOTE | 2023-07-10 20:49 | PC.NURSE ---
Transfer Patient transferred to CSU bed 104 via wheelchair. All belongings sent with patient and all vitals stable. Receiving nurse at bedside.
[2023-07-10] MEDS: sodium chloride 0.9% 1,000 ML 100 ML IV (21:03)
--- NOTE | 2023-07-10 22:40 | ECG_ITS ---
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 Measurements Intervals [place] Rate: 63 P: 51 [place]: 163 QRS: -38 QRSD: 90 T: -11 QT: 388 QTc: 399 Interpretive Statements SINUS RHYTHM Compared to ECG 07/09/2023 17:01:56 No significant changes Electronically Signed On 07-10-2023 23:07:54 CDT by Hari Quiñones M.D. [email or web address]
[2023-07-11] VITALS (15 sets, daily range): BP systolic 114–122; BP diastolic 74–79; PULSE 51–68; RESP 11–25; TEMP 36.9; O2SAT 89–95
[2023-07-11 04:44] LABS: Basophils % 0.4 %; Eosinophils # 0.2 10^3/uL (0.0-0.8); Eosinophils % 2.6 %; Hematocrit 46.2 % (37-53); Lymphocytes # 1.2 10^3/uL (0.8-4.8); Lymphocytes % 13.2 %; Mean Corpuscular HGB Conc 32.9 g/dL (30-55); Mean Corpuscular Hemoglobin 30.9 pg (27-33); Mean Corpuscular Volume 93.9 fl (82-101); Mean Platelet Volume 11.9 fL (7.4-10.4); Monocytes # 1.1 10^3/uL (0.2-0.9); Monocytes % 11.8 %; Neutrophils # 6.57 10^3/uL (1.8-7.7); Neutrophils % 71.7 %; Nucleated Red Blood Cells % 0 %; Platelet Count 303 10^3/cmm (157-399); Red Blood Count 4.92 10^6/uL (3.85-5.65); Red Cell Distribution Width 12.5 % (12.1-15.1); White Blood Count 9.17 10^3/uL (3.29-11.43)
[2023-07-11 04:59] LABS: Albumin Level 3.7 g/dL (3.5-5.2); Anion Gap 11.2 (5-19); Blood Urea Nitrogen 13 mg/dL (6-20); Calcium 9.2 mg/dL (8.5-10.5); Carbon Dioxide 27 mmol/L (22-29); Chloride 105 mmol/L (98-107); Glucose 98 mg/dL (65-115); Phosphorus 3.6 mg/dL (2.5-4.5); Potassium 4.2 mmol/L (3.5-5.1); Sodium 139 mmol/L (136-145)
--- NOTE | 2023-07-11 08:27 | PM.PN ---
Subjective Subjective: Patient is doing well. no chest pain. Vitals/I&O/Wt Last Vital Signs Temp 98.5 F 07/11/23 07:06 Pulse 68 07/11/23 07:06 Resp 17 07/11/23 07:06 BP 122/79 07/11/23 07:06 Pulse Ox 91 07/11/23 07:06 O2 Del Method Room Air 07/11/23 07:06 07/10/23 07/11/23 07/11/23 22:59 06:59 14:59 Intake Total 1000 / 1000 Output Total 600 / 600 Balance -600 / -600 1000 / 1000 Weight last 48 hrs Weight 190 lb Weight 190 lb 11.198 oz Weight 200 lb Physical Exam Narrative: GENERAL: Patient is alert, awake and oriented x3. [] NECK: No jugular vein distension. [] HEENT: No cyanosis. No icterus. No pallor. [] HEART: Regular S1 and S2. No murmur, rub or gallop. [] LUNGS: Clear to auscultate bilaterally. [] CENTRAL NERVOUS SYSTEM: Grossly nonfocal. [] EXTREMITIES: Lower extremities with 1+ edema bilaterally. Pulses palpable in the lower extremities, both dorsalis pedis and posterior tibial. [] Data 07/11/23 03:40 07/11/23 03:40 A&P Assessment and plan (1) NSTEMI (non-ST elevated myocardial infarction): (2) Dyslipidemia: (3) GERD (gastroesophageal reflux disease): Qualifiers: Esophagitis presence: without esophagitis Qualified Code(s): K21.9 - Gastro-esophageal reflux disease without esophagitis (4) Major depression: (5) Ulcerative colitis: Qualifiers: Ulcerative colitis location: unspecified ulcerative colitis location Digestive disease complication type: unspecified complication Qualified Code(s): K51.919 - Ulcerative colitis, unspecified with unspecified complications (6) Fibromyalgia: Plan Patient underwent successful revascularization of mid RCA with 1 stent. Continue aspirin and Plavix with at least 1 year. High intensity statin therapy. Echo shows normal LV systolic function. Thank you for involving us with care of this patient. Patient is stable to be discharged from cardiology standpoint. Please call with questions. Attestations Medical Necessity Statement*: Care expected to cross 2 midnights. Coding Level of Care Code Acute Code for [facility] Diagnoses NSTEMI (non-ST elevated myocardial infarction) I21.4 Dyslipidemia E78.5 GERD (gastroesophageal reflux disease) K21.9 Esophagitis presence: without esophagitis Major depression F32.9 Ulcerative colitis K51.919 Ulcerative colitis location: unspecified ulcerative colitis location Digestive disease complication type: unspecified complication Fibromyalgia M79.7
[2023-07-11] MEDS: metoprolol tartrate 25 mg Tablet PO (09:10)
[2023-07-11] MEDS: clopidogrel 75 mg Tablet PO (09:10)
[2023-07-11] MEDS: aspirin 81 mg EC Tablet PO (09:10)
--- NOTE | 2023-07-11 09:18 | PM.DCS ---
Discharge Providers Date of Admission: 07/09/23 17:39 Date of Discharge: July 11, 2023 Attending Provider at Admission: Evelio Cardona MD Attending Provider at Discharge: Evelio Cardona MD Consults: Cardiology Primary Care Provider: Kym Murphy DO Diagnoses at Discharge Discharge Diagnosis (1) NSTEMI (non-ST elevated myocardial infarction): Status: Acute (2) Dyslipidemia: Status: Acute (3) GERD (gastroesophageal reflux disease): Status: Acute Qualifiers: Esophagitis presence: without esophagitis Qualified Code(s): K21.9 - Gastro-esophageal reflux disease without esophagitis (4) Major depression: Status: Chronic (5) Ulcerative colitis: Status: Chronic Qualifiers: Digestive disease complication type: unspecified complication Ulcerative colitis location: unspecified ulcerative colitis location Qualified Code(s): K51.919 - Ulcerative colitis, unspecified with unspecified complications (6) Fibromyalgia: Status: Chronic Reason for Visit Reason for Visit: chest pain,tingling in hands/arms Hospital Course Hospital Course Antolin Garcia is a 58 year old male with a past medical history significant for ulcerative colitis on Humira, dyslipidemia, and fibromyalgia who presents to the emergency department with chest pain, found to have NSTEMI treated with ACS protocol. Cardiology consulted with patient undergoing cardiac catheterization revealing culprit lesion in RCA undergoing PCI with SCAR placement. Patient's medication titrated for optimization of coronary disease. He was educated on adherence to dual antiplatelet therapy. Echocardiogram revealed preserved left ventricular function. Symptoms resolved. Patient was discharged home in stable condition. He will follow-up in cardiology clinic as well as PCP office. . Physical Exam Narrative: General: Patient is awake and alert. Head: Normocephalic. Atraumatic. EOM intact. Neck: No JVD. Cardiovascular: RRR. No gallops. No murmurs. No peripheral edema. Lungs: Clear to auscultation, no use of accessory muscles, no crackles or wheezes. Skin: No jaundice. No rashes. Abdomen: Normal bowel sounds, abdomen soft and nontender. Genito Urinary: Genital exam not performed since complaints not related. Rectal: Rectal exam not performed since no symptoms indicated blood loss. Extremities: No cyanosis or clubbing. Musculoskeletal: 5/5 strength, normal range of motion, no swollen or erythematous joints. Neurological: Moves all 4 extremities. No myoclonus. Discharge Data Studies Completed and Pending Completed Studies During Hospitalization Category Date Time Status XR chest 1V portable [id number] Stat Exams 07/09/23 15:02 Completed CV. 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 service Routine Exams 07/10/23 07:02 Taken Laboratory Results WBC 9.17 10^3/uL (3.29-11.43) 07/11/23 03:40 RBC 4.92 10^6/uL (3.85-5.65) 07/11/23 03:40 Hgb 15.20 g/dL (11.27-16.99) 07/11/23 03:40 Hct 46.2 % (37-53) 07/11/23 03:40 MCV 93.9 fl (82-101) 07/11/23 03:40 MCH 30.9 pg (27-33) 07/11/23 03:40 MCHC 32.9 g/dL (30-55) 07/11/23 03:40 RDW 12.5 % (12.1-15.1) 07/11/23 03:40 Plt Count 303 10^3/cmm (157-399) 07/11/23 03:40 MPV 11.9 fL (7.4-10.4) H 07/11/23 03:40 Neut % (Auto) 71.7 % 07/11/23 03:40 Lymph % (Auto) 13.2 % 07/11/23 03:40 [place] % (Auto) 11.8 % 07/11/23 03:40 Eos % (Auto) 2.6 % 07/11/23 03:40 Baso % (Auto) 0.4 % 07/11/23 03:40 Neut # (Auto) 6.57 10^3/uL (1.8-7.7) 07/11/23 03:40 Lymph # (Auto) 1.2 10^3/uL (0.8-4.8) 07/11/23 03:40 [place] # (Auto) 1.1 10^3/uL (0.2-0.9) H 07/11/23 03:40 Eos # (Auto) 0.2 10^3/uL (0.0-0.8) 07/11/23 03:40 Baso # (Auto) 0.0 10^3/uL (0.0-0.1) 07/11/23 03:40 Nucleated RBC % (auto) 0 % 07/11/23 03:40 Nucleated RBCs # 0.0 /100WBC 07/11/23 03:40 PT 12.60 SECONDS (12.1-14.9) 07/09/23 15:54 INR 0.91 (0.8-1.2) 07/09/23 15:54 Sodium 139 mmol/L (136-145) 07/11/23 03:40 Potassium 4.2 mmol/L (3.5-5.1) 07/11/23 03:40 Chloride 105 mmol/L (98-107) 07/11/23 03:40 Carbon Dioxide 27 mmol/L (22-29) 07/11/23 03:40 Anion Gap 11.2 (5-19) 07/11/23 03:40 BUN 13 mg/dL (6-20) 07/11/23 03:40 Creatinine 1.2 mg/dL (0.7-1.2) 07/11/23 03:40 GFR Calculation 62.0 mL/min (90-130) L 07/11/23 03:40 Glucose 98 mg/dL (65-115) 07/11/23 03:40 Estimat Average Glucose 105 07/09/23 15:54 Hemoglobin A1c 5.3 % (4.0-6.0) 07/09/23 15:54 Calculated Osmolality 294 mOsm/kg (285-295) 07/10/23 03:47 Calcium 9.2 mg/dL (8.5-10.5) 07/11/23 03:40 Phosphorus 3.6 mg/dL (2.5-4.5) 07/11/23 03:40 Magnesium 2.0 mg/dL (1.7-2.3) 07/11/23 03:40 Total Bilirubin 0.2 mg/dL (0.15-1.2) 07/09/23 15:54 AST 24 U/L (0-40) 07/09/23 15:54 ALT 28 U/L (0-41) 07/09/23 15:54 Alkaline Phosphatase 57 U/L (40-130) 07/09/23 15:54 Troponin T Baseline 26 ng/L (0-15) H 07/09/23 15:54 Troponin T 120 Minute 188.9 ng/L (0-15) H 07/09/23 19:05 Delta Troponin T 162.9 ABS# (0-10) H* 07/09/23 19:05 Troponin T Hi Sens 6Hr 352.9 ng/L (0-15) H 07/09/23 21:50 Troponin T Hi Sens 6Hr Delta 326.9 ng/L (0-12) H* 07/09/23 21:50 Total Protein 6.7 g/dL (6.6-8.7) 07/09/23 15:54 Albumin 3.7 g/dL (3.5-5.2) 07/11/23 03:40 Globulin 2.3 g/dL (1.3-4.6) 07/09/23 15:54 Triglycerides 149 mg/dL (0-150) 07/10/23 03:47 Cholesterol 194 mg/dL (0-200) 07/10/23 03:47 LDL Cholesterol, Calc 127 mg/dL (50-129) 07/10/23 03:47 HDL Cholesterol 37 mg/dL (60-100) L 07/10/23 03:47 LDL/HDL Ratio 3.43 RATIO (0.00-3.22) H 07/10/23 03:47 Cholesterol/HDL Ratio 5.24 mg/dL (1.0-5.00) H 07/10/23 03:47 Lipase 44 U/L (13-60) 07/09/23 15:54 Procedures Performed Cardiac cath with PCI Vitals Last Vital Signs Temp 98.5 F 07/11/23 07:06 Pulse 68 07/11/23 07:06 Resp 17 07/11/23 07:06 BP 122/79 07/11/23 07:06 Pulse Ox 91 07/11/23 07:06 O2 Del Method Room Air 07/11/23 07:06 Discharge Plan Discharge Patient Disposition: Home Condition: Stable Prescriptions: New aspirin 81 mg Tablet,Delayed Release (Dr/Ec) 81 mg PO DAILY 90 Days Qty: 90 3RF clopidogrel 75 mg Tablet 75 mg PO DAILY 90 Days Qty: 90 3RF nitroglycerin 0.4 mg Tablet, Sublingual 0.4 mg sublingual Q5M PRN (Reason: Chest Pain) 90 Days Qty: 100 0RF metoprolol tartrate 25 mg Tablet 25 mg PO BID 90 Days Qty: 180 3RF atorvastatin 40 mg tablet 40 mg PO QPM Qty: 90 3RF Continued MERCAPTOPURINE tablet 1.5 tab PO DAILY Humira 40 mg/0.8 mL syringe kit 40 mg SUBCUT Q14D omeprazole magnesium 20 mg capsule,delayed release(DR/EC) 20 mg PO QAM Discontinued atorvastatin 20 mg tablet 20 mg PO BEDTIME Discharge Orders: Discharge Order (Routine); Ordered 07/11/23 Ordered By: Evelio Cardona Referrals: Kym Murphy DO [Primary Care Provider] - 07/26/23 1:15 pm Radha Magaña FNP [Nurse Practitioner] - 07/17/23 11:00 am Discharge Diet: Advance as tolerated and Cardiac Discharge Activity: Limit activity as instructed Patient Instructions: Metoprolol (By mouth) (Lopressor, Toprol XL), Nitroglycerin (By mouth), Aspirin (By mouth), Atorvastatin (By mouth) (Lipitor, Atorvaliq), Clopidogrel (By mouth) (Plavix), Coronary Artery Disease (GEN), Coronary Angioplasty (DC), GERD (Gastroesophageal Reflux Disease) (DC), Opioid Safety, Post Angiogram Home Care Instructions Activity Restrictions/Additional Instructions: 1. Increase activity as tolerated. No strenuous activity one week. 2. Take medications as prescribed. Do not miss doses of aspirin or Plavix. 3. Follow up with PCP and cardiology clinic for further care. Discharge Attestations Time Spent in Discharge Care*: greater than 30 min Quality Metrics Clinical Quality Measures [ No reported AMI, CVA or VTE this stay] Coding Level of Care Code Acute Code for [facility] Fwd Diagnoses NSTEMI (non-ST elevated myocardial infarction) I21.4 Dyslipidemia E78.5 GERD (gastroesophageal reflux disease) K21.9 Esophagitis presence: without esophagitis Major depression F32.9 Ulcerative colitis K51.919 Digestive disease complication type: unspecified complication Ulcerative colitis location: unspecified ulcerative colitis location Fibromyalgia M79.7
== END 2023-07-11 09:52 | disposition home or self-care (01) ==
LOC: ER 16:39 → ICU 18:58 → CSU 07-10 20:54
PROVIDERS: Internal Medicine; Admitting Provider Internal Medicine; Emergency Provider Emergency Medicine; PCP Family Medicine; Visit Provider Internal Medicine
DX: I21.4 Non-ST elevation (NSTEMI) myocardial infarction (principal); E78.5 Hyperlipidemia, unspecified; K21.9 Gastro-esophageal reflux disease without esophagitis; F32.9 Major depressive disorder, single episode, unspecified; K51.919 Ulcerative colitis, unspecified with unspecified complications; M79.7 Fibromyalgia; I07.1 Rheumatic tricuspid insufficiency; I25.10 Atherosclerotic heart disease of native coronary artery without angina pectoris; Z87.891 Personal history of nicotine dependence
CPT/HCPCS: 36415; 71045; 80048; 80053; 80061; 80069; 83036; 83690; 83735; 84100; 84484; 85025; 85347; 85610; 93005; 93306; 93454; 96372; 96374; 96376; 99152; 99153; 99285; C1725; C1769; C1874; C1887; C1894; C9600; G0378; J1644; J1650; J2250; J3010; J3490; J7030; Q9967

== ENCOUNTER → 2023-07-17 10:59 | Outpatient (BNVA) | payer MEDICARE, SELFPAY | PROVIDERS: PCP Family Medicine; Visit Provider Nurse Practitioner Family | DX: I25.10 Atherosclerotic heart disease of native coronary artery without angina pectoris (principal); Z87.891 Personal history of nicotine dependence | CPT/HCPCS: 36415; 80048; 99214 ==

== ENCOUNTER 2023-08-28 10:22 | Emergency (ER) | payer MEDICARE, SELFPAY ==
[2023-08-28 10:25] VITALS: BP 133/86; PULSE 62; RESP 18; TEMP 36.6; O2SAT 99; BMI 27.7
--- NOTE | 2023-08-28 10:30 | XRR_ITS ---
PROCEDURE INFORMATION: Exam: XR Chest Exam date and time: 08/28/2023 10:45 AM Age: 58 years old Clinical indication: Pain; Angina pectoris; Additional info: Chest pain TECHNIQUE: Imaging protocol: Radiologic exam of the chest. Views: 1 view. COMPARISON: CR XR chest 1V portable [id number] 07/09/2023 3:13 PM FINDINGS: Lungs: Unremarkable. No consolidation. Pleural spaces: Unremarkable. No pleural effusion. No pneumothorax. Heart/Mediastinum: Small hiatal hernia. Bones/joints: Unremarkable. XR/XR chest 1V portable [id number] IMPRESSION: No acute findings.
--- NOTE | 2023-08-28 10:30 | ECG_ITS ---
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 Measurements Intervals [place] Rate: 59 P: 38 NH: 160 QRS: -26 QRSD: 86 T: -17 QT: 409 QTc: 406 Interpretive Statements SINUS BRADYCARDIA BORDERLINE LEFT AXIS DEVIATION [QRS AXIS < -20] Nonspecific T wave changes Compared to ECG 07/10/2023 22:40:19 No significant change Electronically Signed On 08-28-2023 16:54:52 SPORTS CARTOONIST by Moises Feng M.D. [id number] f
[2023-08-28 11:05] LABS: Basophils % 0.5 %; Eosinophils # 0.1 10^3/uL (0.0-0.8); Eosinophils % 1.4 %; Hematocrit 44.9 % (37-53); Lymphocytes # 1.1 10^3/uL (0.8-4.8); Lymphocytes % 16.1 %; Mean Corpuscular HGB Conc 32.3 g/dL (30-55); Mean Corpuscular Volume 99.1 fl (82-101); Monocytes # 0.6 10^3/uL (0.2-0.9); Monocytes % 9.7 %; Neutrophils # 4.72 10^3/uL (1.8-7.7); Neutrophils % 71.8 %; Nucleated Red Blood Cells % 0 %; Platelet Count 392 10^3/cmm (157-399); Red Blood Count 4.53 10^6/uL (3.85-5.65); Red Cell Distribution Width 14.2 % (12.1-15.1); White Blood Count 6.57 10^3/uL (3.29-11.43)
[2023-08-28 11:29] LABS: Alanine Aminotransferase 53 U/L (0-41); Albumin Level 4.3 g/dL (3.5-5.2); Alkaline Phosphatase 67 U/L (40-130); Anion Gap 12.3 (5-19); Aspartate Amino Transferase 29 U/L (0-40); Blood Urea Nitrogen 16 mg/dL (6-20); Calcium 9.6 mg/dL (8.5-10.5); Carbon Dioxide 26 mmol/L (22-29); Chloride 104 mmol/L (98-107); Globulin 2.5 g/dL (1.3-4.6); Glomerular Filtration Rate 68.5 mL/min (90-130); Glucose 96 mg/dL (65-115); Osmolality Calculated 287 mOsm/kg (285-295); Potassium 4.3 mmol/L (3.5-5.1); Sodium 138 mmol/L (136-145); Total Bilirubin 0.3 mg/dL (0.15-1.2); Total Protein 6.8 g/dL (6.6-8.7)
[2023-08-28 11:34] LABS: Troponin(5th) Baseline < 6 ng/L (0-15)
--- NOTE | 2023-08-28 12:23 | ED_ITS ---
HPI - Chest Pain 2 General: Chief Complaint: Chest Pain Stated Complaint: chest pains Time Seen by Provider: 08/28/23 10:29 Source: patient Mode of arrival: ambulatory History of Present Illness: 58-year-old male with a history of coron abelardo disease presents emergency room complaint of chest pain began around 830 this morning while at rest. 6 weeks ago he had a AR and was stented here. He has had intermittent chest pain since then. He has some radiation of pain into his back and into the left side of his neck with this. He went and seen Dr. Wooten at the walk-in today. He was having chest pain at the time he was given 4 baby aspirin and asked to take sublingual nitro after sublingual nitro the chest pain resolved and has not recurred since. MD complaint: chest pain Pertinent past history: coronary artery disease Onset (ago): hour(s) Timing of current episode: episodic Prior episodes: Yes Onset: during rest Pain location: substernal Pain radiation: neck Severity: moderate Quality: sharp Relieving factors: nitroglycerin Exacerbating factors: nothing Associated symptoms: Deny abdominal pain, diaphoresis, dyspnea, fever(s), leg edema, nausea, palpitations, sense of impending doom, syncope or vomiting Treatment prior to arrival: aspirin and nitroglycerin Review of Systems 2 Const: Denies: fever(s) or diaphoresis Card: Denies: palpitations or syncope Resp: Denies: dyspnea GI: Denies: abdominal pain, nausea or vomiting : Denies: dysuria, urinary frequency or urinary urgency Musc: Denies: neck pain or back pain Skin/Breast: Denies: rash PFSH ED 2 PFSH: Medical History Coronary artery disease NSTEMI (non-ST elevated myocardial infarction) Right hand pain Dyslipidemia Nocturia Wart of hand GERD (gastroesophageal reflux disease) Bilateral hand pain Ulcerative colitis Fibromyalgia Major depression Surgical History History of appendectomy History of tonsillectomy H/O vasectomy History of shoulder surgery Right - x3 (scope) Family History Other Aortic aneurysm Brain aneurysm Social History (Reviewed 08/28/23 @ 12:25 by DENIA Casillas Smoking and tobacco/nicotine status: former use of tobacco/nicotine Alcohol intake: current Alcohol intake frequency: 0-2 Drinks per Day Alcohol type: beer and hard liquor Substance/Drug Use: current Other substance/drug use details: THC IN PAST - USES CBD OIL NOW Physical Exam 2 Const: COMMON NORMALS: no acute distress GENERAL APPEARANCE: cooperative and comfortable ORIENTATION/CONSCIOUSNESS: Yes awake, Yes oriented to person, Yes oriented to place and Yes oriented to time HENMT: COMMON NORMALS: normocephalic, atraumatic and hearing grossly normal bilaterally HEAD & SCALP: normocephalic and atraumatic Resp: COMMON NORMALS: normal respiratory effort, No retractions, No use of accessory muscles and clear to auscultation bilaterally AUSCULTATION: clear to auscultation bilaterally Cardio: COMMON NORMALS: regular rate, regular rhythm and No murmurs present (Cardio) RATE: regular rate RHYTHM: regular rhythm GI: COMMON NORMALS: Soft to palpation and No hepatosplenomegaly present A USCULTATION: Yes normoactive bowel sounds PALPATION: Yes Soft to palpation, No Tenderness to palpation present (GI), No Guarding due to palpation present (GI) and Yes No hepatosplenomegaly present Extremity: COMMON NORMALS: normal to inspection, capillary refill normal, no clubbing, cyanosis or edema, no calf tenderness and no pedal edema Neuro: SENSORIUM/ORIENTATION: Yes oriented to person, Yes oriented to place and Yes oriented to time Skin: COMMON NORMALS: no rashes or lesions noted GENERAL SKIN EXAM: no rashes or lesions noted Course 2 Vital Signs: Vital signs: Vital Signs Temperature 97.9 F 08/28/23 14:06 Pulse Rate 65 08/28/23 14:06 Respiratory Rate 18 08/28/23 14:06 Blood Pressure 140/74 08/28/23 14:06 Pulse Oximetry 96 08/28/23 14:06 Oxygen Delivery Me thod Room Air 08/28/23 13:30 MDM - Chest Pain Medical Decision Making Patient is in no further symptoms. Reviewed his previous cardiac cath he had this solitary lesion there were no other significant lesions of concern at the time of the heart cath. He has not had any further symptoms his cardiac enzymes have been negative. Patient to be started on isosorbide mononitrate 30 mg daily, continue aspirin and Plavix. we will set him up for outpatient Lexiscan sestamibi stress test. If he has recurrence of any chest pain return to the emergency room immediately discussed the patient with the patient and his family who is present with him they are comfortable with this plan. Medical Records I reviewed the patient's medical records. Lab Data I reviewed the patient's lab results. 08/28/23 10:55 08/28/23 10:55 Radiology Impressions Chest X-Ray 08/28/23 10:30 IMPRESSION: No acute findings. Laboratory Results WBC 6.57 10^3/uL (3.29-11.43) 08/28/23 10:55 RBC 4.53 10^6/uL (3.85-5.65) 08/28/23 10:55 Hgb 14.50 g/dL (11.27-16.99) 08/28/23 10:55 Hct 44.9 % (37-53) 08/28/23 10:55 MCV 99.1 fl (82-101) 08/28/23 10:55 MCH 32.0 pg (27-33) 08/28/23 10:55 MCHC 32.3 g/dL (30-55) 08/28/23 10:55 RDW 14.2 % (12.1-15.1) 08/28/23 10:55 Plt Count 392 10^3/cmm (157-399) 08/28/23 10:55 MPV 11.0 fL (7.4-10.4) H 08/28/23 10:55 Neut % (Auto) 71.8 % 08/28/23 10:55 Lymph % (Auto) 16.1 % 08/28/23 10:55 [place] % (Auto) 9.7 % 08/28/23 10:55 Eos % (Auto) 1.4 % 08/28/23 10:55 Baso % (Auto) 0.5 % 08/28/23 10:55 Neut # (Auto) 4.72 10^3/uL (1.8-7.7) 08/28/23 10:55 Lymph # (Auto) 1.1 10^3/uL (0.8-4.8) 08/28/23 10:55 [place] # (Auto) 0.6 10^3/uL (0.2-0.9) 08/28/23 10:55 Eos # (Auto) 0.1 10^3/uL (0.0-0.8) 08/28/23 10:55 Baso # (Auto) 0.0 10^3/uL (0.0-0.1) 08/28/23 10:55 Nucleated RBC % (auto) 0 % 08/28/23 10:55 Nucleated RBCs # 0.0 /100WBC 08/28/23 10:55 Sodium 138 mmol/L (136-145) 08/28/23 10:55 Potassium 4.3 mmol/L (3.5-5.1) 08/28/23 10:55 Chloride 104 mmol/L (98-107) 08/28/23 10:55 Carbon Dioxide 26 mmol/L (22-29) 08/28/23 10:55 Anion Gap 12.3 (5-19) 08/28/23 10:55 BUN 16 mg/dL (6-20) 08/28/23 10:55 Creatinine 1.1 mg/dL (0.7-1.2) 08/28/23 10:55 GFR Calculation 68.5 mL/min (90-130) L 08/28/23 10:55 Glucose 96 mg/dL (65-115) 08/28/23 10:55 Calculated Osmolality 287 mOsm/kg (285-295) 08/28/23 10:55 Calcium 9.6 mg/dL (8.5-10.5) 08/28/23 10:55 Total Bilirubin 0.3 mg/dL (0.15-1.2) 08/28/23 10:55 AST 29 U/L (0-40) 08/28/23 10:55 ALT 53 U/L (0-41) H 08/28/23 10:55 Alkaline Phosphatase 67 U/L (40-130) 08/28/23 10:55 Troponin T Baseline < 6 ng/L (0-15) 08/28/23 10:55 Troponin T 120 Minute 6.00 ng/L (0-15) 08/28/23 13:10 Delta Troponin T 0.26830 ABS# (0-10) 08/28/23 13:10 Total Protein 6.8 g/dL (6.6-8.7) 08/28/23 10:55 Albumin 4.3 g/dL (3.5-5.2) 08/28/23 10:55 Globulin 2.5 g/dL (1.3-4.6) 08/28/23 10:55 All radiology interpretation(s) finalized by discharge Discharge Plan Discharge Patient Disposition: Home Clinical Impression: Chest pain Condition: Stable Prescriptions: New isosorbide mononitrate 30 mg tablet extended release 24 hr 30 mg PO QAM Qty: 30 0RF No Action Humira 40 mg/0.8 mL syringe kit 40 mg SUBCUT Q14D omeprazole magnesium 20 mg capsule,delayed release(DR/EC) 20 mg PO QAM PRN (Reason: Acid Reflux) aspirin 81 mg Tablet,Delayed Release (Dr/Ec) 81 mg PO DAILY 90 Days Qty: 90 3RF clopidogrel 75 mg Tablet 75 mg PO DAILY 90 Days Qty: 90 3RF nitroglycerin 0.4 mg Tablet, Sublingual 0.4 mg sublingual Q5M PRN (Reason: Chest Pain) 90 Days Qty: 100 0RF metoprolol tartrate 25 mg Tablet 25 mg PO BID 90 Days Qty: 180 3RF atorvastatin 40 mg tablet 40 mg PO QPM Qty: 90 3RF mercaptopurine 50 mg tablet 75 mg PO DAILY Discharge Orders: Discharge ED (Routine); Ordered 08/28/23 Ordered By: Siddhartha Kapoor Referrals: Kym Murphy DO [Primary Care Provider] - Discharge Diet: Usual diet Discharge Activity: Limit activity as instructed Patient Instructions: Opioid Safety, Pain Management Activity Restrictions/Additional Instructions: Thank you for choosing [facility] for your healthcare needs today. Please realize this is an emergency room and that we are providing you with a medical screening exam and this may not be complete and all inclusive of all the testing and or work up that you may need to determine your ailment or severity of your illness. It is very important that you follow up as instructed or that you return to the Emergency Department should you have concerns or if your condition changes or worsens in any way. You were seen today for an episode of chest pain. Your cardiac enzymes and EKG are negative. Your previous cardiac catheterization was reviewed. Recommend continuing her current medications full also add isosorbide mononitrate 30 mg daily and we will set you up for an outpatient Lexiscan sestamibi stress test. Coding Level of Care Code ED Client Evaluator for Beata Gandhi
--- NOTE | 2023-08-28 12:30 | ECG_ITS ---
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 Measurements Intervals [place] Rate: 55 P: 42 [place]: 164 QRS: -6 QRSD: 90 T: 0 QT: 410 QTc: 394 Interpretive Statements SINUS BRADYCARDIA Otherwise normal EKG Compared to ECG 08/28/2023 10:31:01 No significant changes Electronically Signed On 08-28-2023 17:07:42 USED CAR LOT ATTENDANT by Moises Feng M.D. [email or web address] [email or web address] [email or web address] hospitalWeMonitor[facility] clevel[facility] westPiqora/store/[id number]
[2023-08-28 12:35] VITALS: BP 157/78; PULSE 58; RESP 16; O2SAT 98
[2023-08-28 13:30] VITALS: BP 129/76; PULSE 55; RESP 16; O2SAT 98
[2023-08-28 13:36] LABS: Troponin 5 2HR Delta 0.00001 ABS# (0-10)
[2023-08-28 14:06] VITALS: BP 140/74; PULSE 65; RESP 18; TEMP 36.6; O2SAT 96
== END 2023-08-28 14:08 | disposition home or self-care (01) ==
PROVIDERS: Emergency Provider Family Medicine; PCP Family Medicine
DX: R07.9 Chest pain, unspecified (principal); Z79.02 Long term (current) use of antithrombotics/antiplatelets; Z79.82 Long term (current) use of aspirin; Z87.891 Personal history of nicotine dependence; I25.2 Old myocardial infarction; I25.10 Atherosclerotic heart disease of native coronary artery without angina pectoris; E78.5 Hyperlipidemia, unspecified
CPT/HCPCS: 36415; 71045; 80053; 84484; 85025; 93005; 99285

== ENCOUNTER 2023-09-26 08:06 | Outpatient (CLI) | payer MEDICARE, SELFPAY ==
[2023-09-26 08:10] VITALS: BP 168/94; PULSE 99; BMI 27.6
--- NOTE | 2023-09-26 08:15 | ECG_ITS ---
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 Interpretive Statements NAME OF STUDY: EXERCISE SESTAMIBI STRESS TEST INDICATION: [Chest Pain] EXERCISE DATA: The patient was exercised by [place] protocol. Baseline heart rate was 72 beats per minute. Baseline blood pressure was 141/83 millimeters of mercury. Target heart rate was 137 beats per minute. Maximum heart rate achieved was 148, which was 107% of the target heart rate. Maximum blood pressure was 195/81 millimeters of mercury. Total exercise time was 10 minutes and 6 seconds. Maximum METs achieved was 13.5. The reason for ending the test was completion of protocol. The patient complained of shortness of breath during the stress test, which then resolved at the end of the test. ELECTROCARDIOGRAM: BASELINE: Showed sinus rhythm, normal axis, no significant ST-T changes at the baseline noted. [] EXERCISE: At the peak exercise level, [] No significant ST-T changes suggestive of ischemia noted. Occasional PVCs seen [] RECOVERY: During the recovery period, heart rate dropped appropriately. No significant ST-T changes in the recovery suggestive of ischemia noted. [] CONCLUSION: 1. Exercise capacity is excellent 2. Heart rate response was appropriate 3. Blood pressure response was appropriate 4. Symptoms not suggestive of ischemia. 5. Electrocardiogram portion of the stress test was not suggestive of ischemia. 6. Nuclear scan will be documented separately. Electronically Signed On 10-16-2023 16:03:49 ACCOUNT ASSOCIATE by Hari Quiñones M.D. [email or web address].[employer]/store/OM/[id number]
--- NOTE | 2023-09-26 08:16 | NMCV_ITS ---
NM michael perf SPECT r/s* [id number] Antolin Garcia Age: 58 Gender: M : 1965 Exam Date: 09/26/2023 09:01 Ordering Phys: Kym Murphy DO Technologist: PENNY Michelle Exam Location: [facility] Indications: CHEST PAIN STRESS TEST Please see separate stress test report in [facility] for full findings IMAGE PROTOCOL Rest/Stress 1 Exercise Day Radiopharmaceutical Dose (mCi) Administration Site Administered by Rest: Tc-99m 10.8 IV PENNY Brown Sestamibi Stress:Tc-99m 32.8 IV PENNY Michelle Sestamidominic Rest: 26-Sep-2023 60 Discovery 630 Stress: 26-Sep-2023 30 Discovery 630 Radiopharmaceutical was injected at 86 % maximum heart rate. Images obtained in supine and prone position. SPECT RESULTS Technical Quality: Excellent Raw Data Analysis: Normal Image Corrections: No attenuation or motion correction applied Summed Stress Score: 0 Summed Rest Score: 0 Summed Difference Score: 0 PERFUSION FINDINGS SPECT images demonstrate homogeneous tracer distribution throughout the myocardium. FUNCTIONAL RESULTS (calculated via Gated SPECT) Stress Image LV EF (%): 72 Stress EDV (mL):88 TID: 0.86 Stress ESV (mL):25 FUNCTIONAL FINDINGS: There is normal left ventricular systolic function. IMPRESSIONS 1. Normal myocardial perfusion imaging with no evidence of ischemia 2. LV systolic function is normal Hari Quiñones MD (Electronically Signed) Final Date: 26 September 2023 12:46 S
== END 2023-09-26 08:07 | disposition home or self-care (01) ==
LOC: CDL 08:07
PROVIDERS: PCP Family Medicine; Visit Provider Family Medicine
DX: R07.9 Chest pain, unspecified (principal)
CPT/HCPCS: 36415; 78452; 93017; A9500

== ENCOUNTER → 2023-11-26 12:13 | Outpatient (BNVA) | payer MEDICARE, SELFPAY | PROVIDERS: PCP Family Medicine; Visit Provider Internal Medicine | DX: I25.110 Atherosclerotic heart disease of native coronary artery with unstable angina pectoris (principal); Z87.891 Personal history of nicotine dependence | CPT/HCPCS: 99214 ==

== ENCOUNTER 2023-12-03 09:17 | Emergency (ER) | payer MEDICARE, SELFPAY ==
[2023-12-03 09:21] VITALS: BP 160/102; PULSE 78; RESP 16; TEMP 36.6; O2SAT 98; BMI 28.5
--- NOTE | 2023-12-03 09:43 | US_ITS ---
WS: [id number] ULTRASOUND ABDOMEN LIMITED CLINICAL INFORMATION: R inguinal region; eval for hernia COMPARISON: None. FINDINGS: RIGHT inguinal hernia appears to contain a loop of bowel with herniation during Valsalva. Patient had increased pain with Valsalva. This can be further evaluated with contrast-enhanced CT abdomen pelvis for better anatomic detail. No visualized fluid collections. IMPRESSION: 1. RIGHT inguinal hernia containing a loop of bowel with increased herniation during Valsalva. Patie nt with increased pain during Valsalva. This can be further evaluated with contrast-enhanced CT abdom en pelvis for better anatomic detail. 2. No visualized fluid collections. Notified THEO Carvajal at 12/03/2023 11:39 AM.
--- NOTE | 2023-12-03 09:44 | ED_ITS ---
HPI - Abdominal Pain 2 General: Chief Complaint: Abdominal Pain Stated Complaint: sent by ,right side groin pain Time Seen by Provider: 12/03/23 09:27 Source: patient Mode of arrival: ambulatory Limitations: no limitations History of Present Illness: Patient is a 58-year-old male who presents to ED today for evaluation of pain, burning, and intermittent swelling to his right inguinal region. Patient states he has been having burning and pain over the past 2 to 3 weeks. He intermittently will have quite a bit of discomfort in feels like the area is swollen. Most the time he notices this when he is on his feet for long periods of time. Patient states he is urinating normally. He is passing stool and flatulence normally. No fevers. He has not noticed any erythema/warmth to the area. MD elicited complaint: abdominal pain (R inguinal pain) Pertinent past history: none Onset (ago): week(s) Pain Consistency: intermittent Location: Groin (R) Severity: moderate Quality: burning Radiation: none Migration to: no migration Exacerbating factors: other (walking, lifting) Relieving factors: rest Associated Symptoms: Denies chills, diarrhea, dysuria, fever(s), nausea and vomiting Review of Systems 2 Const: Denies: fever(s), chills, body aches, fatigue or malaise Card: Denies: chest pain Resp: Denies: dyspnea GI: Reports: abdominal pain (R inguinal pain); Denies: nausea, vomiting or diarrhea : Reports: genital pain (R inguinal pain/burning) and scrotal swelling (intermittently ); Denies: flank pain, difficulty urinating, dysuria, urinary frequency, urinary urgency, urinary hesitancy, genital lesions, penile discharge or testicular pain Musc: Denies: neck pain, back pain, extremity pain, extremity swelling, joint pain or joint swelling Skin/Breast: Denies: rash Neuro: Denies: headache(s), numbness in extremities, weakness in extremities or sensory changes PFSH ED 2 PFSH: Medical History Coronary artery disease NSTEMI (non-ST elevated myocardial infarction) Right hand pain Dyslipidemia Nocturia Wart of hand GERD (gastroesophageal reflux disease) Bilateral hand pain Ulcerative colitis Fibromyalgia Major depression Surgical History History of appendectomy History of tonsillectomy H/O vasectomy History of shoulder surgery Right - x3 (scope) Family History Other Aortic aneurysm Brain aneurysm Social History Smoking and tobacco/nicotine status: former use of tobacco/nicotine Alcohol intake: current Alcohol intake frequency: 0-2 Drinks per Day Alcohol type: beer and hard liquor Substance/Drug Use: current Other substance/drug use details: THC IN PAST - USES CBD OIL NOW Physical Exam 2 Const: COMMON NORMALS: no acute distress, average body habitus, patient oriented x3, no limitations, healthy appearing, alert and well nourished GI: COMMON NORMALS: Soft to palpation AUSCULTATION: Yes normoactive bowel sounds PALPATION: Yes Soft to palpation, Yes Tenderness to palpation present (GI) (R inguinal region there appears to be a hernia; worse with valsalva), No Guarding due to palpation present (GI) and No Rigid due to palpation : COMMON NORMALS: Yes no CVA tenderness, Yes Testes normal and Yes scrotum normal BLADDER/KIDNEY EXAM: Yes no CVA tenderness PENIS: normal penis M EATUS: meatus normal SCROTUM: Yes testes descended bilaterally TESTES: Yes testicular lie normal Back/Pelvis: COMMON NORMALS: no CVA tenderness Neuro: COMMON NORMALS: patient oriented x3 SENSORIUM/ORIENTATION: Yes alert Course 2 Vital Signs: Vital signs: Vital Signs Temperature 97.9 F 12/03/23 09:21 Pulse Rate 72 12/03/23 12:25 Respiratory Rate 16 12/03/23 12:25 Blood Pressure 160/102 12/03/23 09:21 Pulse Oximetry 98 12/03/23 12:25 Oxygen Delivery Me thod Room Air 12/03/23 12:25 MDM - Abdominal Pain Medical Decision Making Patient clinically with a right inguinal hernia. Patient states he is not having pain all the time. Seems to be worse with standing for long periods of time or with lifting. Ultrasound initially obtained which showed a right inguinal hernia containing a loop of bowel with increased hernia nation during Valsalva with recommendation for CT imaging for better anatomic detail as radiologist stated he could not definitively tell whether hernia was incarcerated/strangulated. On CT scan he does have a fat-containing right inguinal hernia but no hernia needed bowel noted. At this time I will place a case management referral to get him set up with general surgery for further evaluation/treatment. Patient was given strict return precautions. Lab Data 12/03/23 12:20 12/03/23 12:20 Labs/Radiology: Laboratory Results WBC 6.79 10^3/uL (3.29-11.43) 12/03/23 12:20 RBC 4.62 10^6/uL (3.85-5.65) 12/03/23 12:20 Hgb 14.80 g/dL (11.27-16.99) 12/03/23 12:20 Hct 43.8 % (37-53) 12/03/23 12:20 MCV 94.8 fl (82-101) 12/03/23 12:20 MCH 32.0 pg (27-33) 12/03/23 12:20 MCHC 33.8 g/dL (30-55) 12/03/23 12:20 RDW 13.1 % (12.1-15.1) 12/03/23 12:20 Plt Count 325 10^3/cmm (157-399) 12/03/23 12:20 MPV 10.8 fL (7.4-10.4) H 12/03/23 12:20 Neut % (Auto) 69.6 % 12/03/23 12:20 Lymph % (Auto) 17.5 % 12/03/23 12:20 [place] % (Auto) 10.8 % 12/03/23 12:20 Eos % (Auto) 0.9 % 12/03/23 12:20 Baso % (Auto) 0.6 % 12/03/23 12:20 Neut # (Auto) 4.73 10^3/uL (1.8-7.7) 12/03/23 12:20 Lymph # (Auto) 1.2 10^3/uL (0.8-4.8) 12/03/23 12:20 [place] # (Auto) 0.7 10^3/uL (0.2-0.9) 12/03/23 12:20 Eos # (Auto) 0.1 10^3/uL (0.0-0.8) 12/03/23 12:20 Baso # (Auto) 0.0 10^3/uL (0.0-0.1) 12/03/23 12:20 Nucleated RBC % (auto) 0 % 12/03/23 12:20 Nucleated RBCs # 0.0 /100WBC 12/03/23 12:20 Sodium 139 mmol/L (136-145) 12/03/23 12:20 Potassium 3.9 mmol/L (3.5-5.1) 12/03/23 12:20 Chloride 103 mmol/L (98-107) 12/03/23 12:20 Carbon Dioxide 24 mmol/L (22-29) 12/03/23 12:20 Anion Gap 15.9 (5-19) 12/03/23 12:20 BUN 19 mg/dL (6-20) 12/03/23 12:20 Creatinine 1.1 mg/dL (0.7-1.2) 12/03/23 12:20 GFR Calculation 68.5 mL/min (90-130) L 12/03/23 12:20 Glucose 90 mg/dL (65-115) 12/03/23 12:20 Calculated Osmolality 290 mOsm/kg (285-295) 12/03/23 12:20 Calcium 9.2 mg/dL (8.5-10.5) 12/03/23 12:20 Total Bilirubin 0.3 mg/dL (0.15-1.2) 12/03/23 12:20 AST 23 U/L (0-40) 12/03/23 12:20 ALT 28 U/L (0-41) 12/03/23 12:20 Alkaline Phosphatase 64 U/L (40-130) 12/03/23 12:20 Total Protein 7.0 g/dL (6.6-8.7) 12/03/23 12:20 Albumin 4.2 g/dL (3.5-5.2) 12/03/23 12:20 Globulin 2.8 g/dL (1.3-4.6) 12/03/23 12:20 All radiology interpretation(s) finalized by discharge Discharge Plan Discharge Patient Disposition: Home Clinical Impression: Inguinal hernia, right Condition: Stable Prescriptions: New hydrocodone-acetaminophen 5-325 mg tablet 1 tab PO Q6H PRN (Reason: pain) Qty: 14 0RF No Action Humira 40 mg/0.8 mL syringe kit 40 mg SUBCUT Q14D omeprazole magnesium 20 mg capsule,delayed release(DR/EC) 20 mg PO QAM PRN (Reason: Acid Reflux) bupropion HCl [Wellbutrin XL] 150 mg tablet extended release 24 hr 150 mg PO QAM Qty: 90 0RF metoprolol tartrate 25 mg tablet 12.5 mg PO DAILY aspirin 81 mg Tablet,Delayed Release (Dr/Ec) 81 mg PO DAILY 90 Days Qty: 90 3RF clopidogrel 75 mg Tablet 75 mg PO DAILY 90 Days Qty: 90 3RF atorvastatin 40 mg tablet 40 mg PO QPM Qty: 90 3RF mercaptopurine 50 mg tablet 75 mg PO DAILY Discharge Orders: Discharge ED (Routine); Ordered 12/03/23 Ordered By: Salena Buitrago Referrals: Kym Murphy DO [Primary Care Provider] - Patient Instructions: Inguinal Hernia Activity Restrictions/Additional Instructions: As we discussed case management should reach out to you shortly to help set you up with your follow-up appointment with general surgery for further evaluation/management of your hernia. As we discussed you need to return to the emergency department for the onset of severe constant pain, inability to have a bowel movement or pass gas, any overlying redness or warmth to the area, or any other concerns you may have. Coding Level of Care Code ED Day Guard for Beata Gandhi
--- NOTE | 2023-12-03 10:56 | PC.PHAR ---
PT HAS A SCRIPT FOR METOPROLOL TARTRATE 25 MG BID- PT STS HE ONLY TAKES 12.5 MG DAILY
--- NOTE | 2023-12-03 12:00 | CT_ITS ---
WS: [id number] CT ABDOMEN PELVIS TECHNIQUE: Contrast-enhanced CT of the abdomen and pelvis with coronal and sagittal reformatted image s. CLINICAL INFORMATION: abdominal pain; R inguinal pain/hernia COMPARISON: Ultrasound 12/03/2023 DLP: 594.[address] scans at [facility] use at least one of these dose optimization techniques: automated e xposure control; mA and/or kV adjustment per patient size (includes targeted exams where dose is matc hed to clinical indication); or iterative reconstruction. FINDINGS: Mild diffuse fatty infiltration of the liver. Normal portal vein and splenic vein. Normal spleen. Mod erate to large esophageal hiatal hernia. This is new since 2017. Lung bases are well aerated. Normal pancreas. Normal spleen. Adrenal glands are normal. Normal renal parenchymal enhancement. No hydronep hrosis. Celiac and SMA are patent. Normal caliber abdominal aorta. Aortic calcification. Tiny fat-con taining umbilical hernia. Urine distended bladder. No evidence of high-grade small or large bowel obstruction. Fat-containing LEFT inguinal hernia. Smaller fat-containing RIGHT inguinal hernia with a small amount of fluid and induration along the RI GHT inguinal canal. No herniated bowel on this study. IMPRESSION: 1. Fat-containing RIGHT inguinal hernia with a small amount of induration and fluid. No herniated kwaku wel on this study. Suspected herniated bowel on the concurrent ultrasound with Valsalva. 2. Fat-containing LEFT inguinal hernia. 3. Moderate to large esophageal hiatal hernia new from 2017. 4. No other acute findings.
[2023-12-03 12:25] VITALS: PULSE 72; RESP 16; O2SAT 98
[2023-12-03 12:25] LABS: Basophils % 0.6 %; Eosinophils # 0.1 10^3/uL (0.0-0.8); Eosinophils % 0.9 %; Hematocrit 43.8 % (37-53); Lymphocytes # 1.2 10^3/uL (0.8-4.8); Lymphocytes % 17.5 %; Mean Corpuscular HGB Conc 33.8 g/dL (30-55); Mean Corpuscular Volume 94.8 fl (82-101); Mean Platelet Volume 10.8 fL (7.4-10.4); Monocytes # 0.7 10^3/uL (0.2-0.9); Monocytes % 10.8 %; Neutrophils # 4.73 10^3/uL (1.8-7.7); Neutrophils % 69.6 %; Nucleated Red Blood Cells % 0 %; Platelet Count 325 10^3/cmm (157-399); Red Blood Count 4.62 10^6/uL (3.85-5.65); Red Cell Distribution Width 13.1 % (12.1-15.1); White Blood Count 6.79 10^3/uL (3.29-11.43)
[2023-12-03 12:42] LABS: Alanine Aminotransferase 28 U/L (0-41); Albumin Level 4.2 g/dL (3.5-5.2); Alkaline Phosphatase 64 U/L (40-130); Anion Gap 15.9 (5-19); Aspartate Amino Transferase 23 U/L (0-40); Blood Urea Nitrogen 19 mg/dL (6-20); Calcium 9.2 mg/dL (8.5-10.5); Carbon Dioxide 24 mmol/L (22-29); Chloride 103 mmol/L (98-107); Creatinine Clr Calc Pharmacy 79.1971; Globulin 2.8 g/dL (1.3-4.6); Glomerular Filtration Rate 68.5 mL/min (90-130); Glucose 90 mg/dL (65-115); Osmolality Calculated 290 mOsm/kg (285-295); Potassium 3.9 mmol/L (3.5-5.1); Sodium 139 mmol/L (136-145); Total Bilirubin 0.3 mg/dL (0.15-1.2)
[2023-12-03] MEDS: iohexol 350 mg/mL 500 mL Btl (per mL) IV (13:29)
--- NOTE | 2023-12-04 08:53 | DCPLANNER ---
Message sent to General surgery- follow-up appointment with general surgery for further evaluation/management of your hernia.
== END 2023-12-03 14:46 | disposition home or self-care (01) ==
PROVIDERS: Emergency Provider Physician Assistant; PCP Family Medicine
DX: K40.90 Unilateral inguinal hernia, without obstruction or gangrene, not specified as recurrent (principal); Z79.02 Long term (current) use of antithrombotics/antiplatelets; Z79.82 Long term (current) use of aspirin; Z87.891 Personal history of nicotine dependence; I25.10 Atherosclerotic heart disease of native coronary artery without angina pectoris; I25.2 Old myocardial infarction; E78.5 Hyperlipidemia, unspecified
CPT/HCPCS: 36415; 74177; 76705; 80053; 85025; 99285; Q9967

== ENCOUNTER → 2023-12-11 09:29 | Outpatient (BNVA) | payer MEDICARE, SELFPAY | PROVIDERS: PCP Family Medicine; Referring Provider Physician Assistant; Visit Provider Surgery | DX: K46.9 Unspecified abdominal hernia without obstruction or gangrene (principal) | CPT/HCPCS: 99203 ==

== ENCOUNTER → 2024-01-02 08:50 | Outpatient (BNVA) | payer MEDICARE, SELFPAY | PROVIDERS: PCP Family Medicine; Visit Provider Nurse Practitioner Family | DX: I25.110 Atherosclerotic heart disease of native coronary artery with unstable angina pectoris (principal); Z87.891 Personal history of nicotine dependence | CPT/HCPCS: 99213 ==

== ENCOUNTER → 2024-05-26 12:19 | Outpatient (BNVA) | payer MEDICARE, SELFPAY | PROVIDERS: PCP Family Medicine; Visit Provider Internal Medicine | DX: I25.118 Atherosclerotic heart disease of native coronary artery with other forms of angina pectoris (principal); Z87.891 Personal history of nicotine dependence; I25.2 Old myocardial infarction | CPT/HCPCS: 99214 ==

== ENCOUNTER 2024-08-15 16:12 | Emergency (ER) | payer MEDICARE, SELFPAY ==
[2024-08-15 16:34] VITALS: BP 122/69; PULSE 65; RESP 17; TEMP 36.8; O2SAT 97; BMI 27.6
--- NOTE | 2024-08-15 16:40 | USR_ITS ---
PROCEDURE INFORMATION: Exam: US Duplex Right Upper Extremity Veins, Limited Exam date and time: 08/15/2024 5:23 PM Age: 59 years old Clinical indication: Pain; Arm, upper; Right; Additional info: Swelling TECHNIQUE: Imaging protocol: Real-time duplex ultrasound of the right Upper Extremity with 2-D jensen scale, color Doppler flow and spectral waveform analysis with image documentation. Limited exam focused on the right upper extremity veins. COMPARISON: CR XR hand RT min 3V* [id number] 03/16/2023 10:38 AM FINDINGS: Right deep veins: Unremarkable. Axillary, brachial, radial and ulnar veins are patent throughout without thrombus. Normal Doppler waveforms. Normal compressibility and/or augmentation response. Visualized internal jugular and subclavian veins are patent. Superficial veins: Heterogeneously hypoechoic, occlusive thrombus in the basilic vein. Visualized cephalic vein patent without thrombus. Soft tissues: Unremarkable. US/[place] [id number] IMPRESSION: 1. No sonographic evidence of deep vein thrombosis. 2. Heterogeneously hypoechoic, occlusive thrombus in the basilic vein.
[2024-08-15 17:47] VITALS: BP 124/76; PULSE 71; O2SAT 97
--- NOTE | 2024-08-15 18:36 | ED_ITS ---
HPI - Extremity Problem General: Chief complaint: Extremity Problem,Nontraumatic Stated complaint: dr johnson sent - possible blood clot Time Seen by Provider: 08/15/24 17:52 Source: patient Mode of arrival: ambulatory Limitations: no limitations History of Present Illness: Patient is a 59-year-old male who presents to the emergency department with right upper extremity swelling to the medial elbow that has been worsening over the past month. Initially was seen in urgent care and sent over for DVT rule out. He has been on blood thinner before, states he was recently taken off of Plavix prior to onset of symptoms and thinks that he needs to be back on blood thinner. Vitals have been stable, other than the swelling and some pain he denies any other symptoms. No shortness of breath, no chest pain, and his vitals at this time are stable notably his pulse and O2 saturation on room air. MD Complaint: extremity pain and extremity swelling Onset (ago): month(s) (1) Pain Consistency: constant Location: right and upper extremity Associated symptoms: Reports no associated symptoms; Deny chest pain, fever(s) or rash Context: history of DVT (Recently taken off of blood thinner) Related Data Home Medications Medication Instructions Recorded Confirmed adalimumab 40 mg/0.8 mL 40 mg SUBCUT Q14D 12/29/19 08/15/24 subcutaneous syringe kit (Humira) omeprazole magnesium 20 mg 20 mg PO QAM PRN Acid Reflux 03/16/23 08/15/24 capsule,delayed release mercaptopurine 50 mg tablet 75 mg PO DAILY 08/28/23 08/15/24 metoprolol tartrate 25 mg tablet 12.5 mg PO DAILY 11/26/23 08/15/24 Previous Rx's Medication Instructions Recorded aspirin 81 mg tablet,delayed 81 mg PO DAILY 90 days #90 tabs 07/11/23 release atorvastatin 40 mg tablet 40 mg PO QPM #90 tabs 07/11/23 Wellbutrin XL 150 mg 24 hr tablet, See Rx Instructions .Route 05/27/24 extended release (bupropion HCl) .COMPLEX #30 tabs apixaban 5 mg tablet (Eliquis) 5 mg PO BID #60 tabs 08/15/24 Allergies Allergy/AdvReac Type Severity Reaction Status Date / Time prednisone Allergy CAUSES ME Verified 08/15/24 16:37 TO BE A JERK pregabalin [From Lyrica] Allergy MADE ME Verified 08/15/24 16:37 TRY TO COMMIT SUICIDE Sulfa (Sulfonamide AdvReac Mild RASH Verified 08/15/24 16:37 Antibiotics) Review of Systems General: Reports: 10 or more systems reviewed and unremarkable except in HPI and below Const: Denies: fever(s) or chills Card: Denies: chest pain Resp: Denies: dyspnea or productive cough GI: Denies: abdominal pain, nausea, vomiting or diarrhea : Denies: flank pain Musc: Reports: extremity pain (Right upper extremity) and extremity swelling (Right upper extremity); Denies: neck pain, back pain, joint pain, joint swelling, joint redness, joint warmth, limited range of motion or muscle weakness Skin/Breast: Denies: rash Neuro: Denies: headache(s), numbness in extremities or weakness in extremities PFSH ED PFSH: Medical History Encounter to establish care Coronary artery disease NSTEMI (non-ST elevated myocardial infarction) Right hand pain Dyslipidemia Nocturia Wart of hand GERD (gastroesophageal reflux disease) Bilateral hand pain Ulcerative colitis Fibromyalgia Major depression Surgical History History of appendectomy History of tonsillectomy H/O vasectomy History of shoulder surgery Right - x3 (scope) Family History Other Aortic aneurysm Brain aneurysm Social History Smoking and tobacco/nicotine status: former use of tobacco/nicotine Alcohol intake: current Alcohol intake frequency: 0-2 Drinks per Day Alcohol type: beer and hard liquor Substance/Drug Use: current Other substance/drug use details: THC IN PAST - USES CBD OIL NOW Physical Exam Const: COMMON NORMALS: no acute distress, average body habitus, patient oriented x3, no limitations, healthy appearing, alert and well nourished HENMT: COMMON NORMALS: normocephalic and atraumatic HEAD & SCALP: normocephalic and atraumatic Neck/C-Spine: COMMON NORMALS: full ROM Resp: COMMON NORMALS: normal respiratory effort, No retractions, No use of accessory muscles and clear to auscultation bilaterally EFFORT & INSPECTION: Yes able to speak in complete sentences AUSCULTATION: clear to auscultation bilaterally Cardio: COMMON NORMALS: regular rate, regular rhythm, S1 normal heart sound present, S2 normal heart sound present, No gallops present (Cardio), No clicks present (Cardio), No murmurs present (Cardio), No rub (Cardio) and Peripheral pulses 2+ throughout RATE: regular rate RHYTHM: regular rhythm HEART SOUNDS: S1 normal heart sound present and S2 normal heart sound present PERIPHERAL PULSES: Peripheral pulses 2+ throughout Extremity: NARRATIVE EXTREMITY EXAM: Minor swelling and erythema noted to the medial aspect of patient's right elbow. Radial ulnar pulses intact. No distal swelling, coolness, or other abnormalities noted of the right upper extremity. Neuro: COMMON NORMALS: patient oriented x3, moves all extremities, no focal motor deficits and no sensory deficits noted SENSORIUM/ORIENTATION: Yes alert Course Vital Signs: Vital signs: Vital Signs Temperature 98.3 F 08/15/24 16:34 Pulse Rate 71 08/15/24 17:47 Respiratory Rate 17 08/15/24 16:34 Blood Pressure 124/76 08/15/24 17:47 Pulse Oximetry 97 08/15/24 17:47 Oxygen Delivery Me thod Room Air 08/15/24 17:47 MDM - Extremity (Nontraumatic) Medical Decision Making Right upper extremity ultrasound showing signs of a DVT to the basilic vein. On physical exam there was minor swelling and erythema noted, however ultimately was an unremarkable examination. He had been on blood thinners before, will start him on Eliquis for DVT protocol at this time and have him closely follow- up with primary care. First dose of Eliquis will be given here in the emergency department. All other questions and concerns addressed. All radiology interpretation(s) finalized by discharge Discharge Plan Discharge Patient Disposition: Home Clinical Impression: Deep venous thrombosis of upper extremity Condition: Stable Prescriptions: New Eliquis 5 mg tablet 5 mg PO BID Qty: 60 0RF Rx Instructions: Take 10mg (2 tabs) PO BID for 10 days, then take 5mg (1 tab) PO BID from then on until through with treatment No Action Humira 40 mg/0.8 mL syringe kit 40 mg SUBCUT Q14D omeprazole magnesium 20 mg capsule,delayed release(DR/EC) 20 mg PO QAM PRN (Reason: Acid Reflux) metoprolol tartrate 25 mg tablet 12.5 mg PO DAILY bupropion HCl [Wellbutrin XL] 150 mg tablet extended release 24 hr See Rx Instructions .ROUTE .COMPLEX Qty: 30 2RF Dose Instruction: TAKE 1 TABLET BY MOUTH ONCE DAILY IN THE MORNING Rx Instructions: TAKE 1 TABLET BY MOUTH ONCE DAILY IN THE MORNING aspirin 81 mg Tablet,Delayed Release (Dr/Ec) 81 mg PO DAILY 90 Days Qty: 90 3RF atorvastatin 40 mg tablet 40 mg PO QPM Qty: 90 3RF mercaptopurine 50 mg tablet 75 mg PO DAILY Discharge Orders: Discharge ED (Routine); Ordered 08/15/24 Ordered By: Mark Trimble Referrals: Makenna Casas MD [Primary Care Provider] - Patient Instructions: Deep Vein Thrombosis (ED) Activity Restrictions/Additional Instructions: Take Eliquis as prescribed. Close follow up with your primary care provider. Wear compression devices and elevate your arm. Limit salt intake and drink plenty of fluids. Please return with any new or concerning symptoms. Coding Level of Care Code ED Manager Environmental Affairs for Beata Gandhi
[2024-08-15] MEDS: apixaban 5 mg Tablet 10 MG PO (18:43)
[2024-08-15 18:47] VITALS: BP 125/76; PULSE 64; O2SAT 97
== END 2024-08-15 18:48 | disposition home or self-care (01) ==
PROVIDERS: Emergency Provider Physician Assistant; PCP Pediatrics
DX: I82.621 Acute embolism and thrombosis of deep veins of right upper extremity (principal); Z79.82 Long term (current) use of aspirin; Z87.891 Personal history of nicotine dependence; E78.5 Hyperlipidemia, unspecified; I25.10 Atherosclerotic heart disease of native coronary artery without angina pectoris
CPT/HCPCS: 93971; 99284

== ENCOUNTER 2024-10-23 13:22 | Emergency (ER) | payer MEDICARE, SELFPAY ==
[2024-10-23] VITALS (8 sets, daily range): BP systolic 129–148; BP diastolic 78–89; PULSE 59–72; RESP 16–22; TEMP 36.7; O2SAT 92–97; BMI 27.3
--- NOTE | 2024-10-23 13:26 | XR_ITS ---
WS: [id number] Portable AP upright chest, 10/23/2024 Clinical Data: cp Comparison: Portable chest, 08/28/2023 Findings: No nodules, masses or effusions are seen. The heart is normal. The pulmonary vascularity is not increased. No pneumonia or pneumothorax is seen. The aortic arch and descending thoracic aorta s how calcification. There is a slight dextroscoliosis. There is a small opaque device overlying the ri ght coracoid process. XR/XR chest 1V portable [id number] Impression: Atherosclerosis.
--- NOTE | 2024-10-23 13:26 | ECG_ITS ---
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 Measurements Intervals [place] Rate: 59 P: 45 [place]: 154 QRS: 4 QRSD: 94 T: 31 QT: 387 QTc: 385 Interpretive Statements SINUS BRADYCARDIA POSSIBLE LEFT ATRIAL ENLARGEMENT [-0.1mV P-WAVE IN V1/V2] MODERATE ST DEPRESSION [0.05+ mV ST DEPRESSION] Compared to ECG 08/28/2023 12:22:51 ST (T wave) deviation now present Electronically Signed On 10-24-2024 09:02:36 CHECKER LOADER by Hari Quiñones M.D. [id number]
--- NOTE | 2024-10-23 13:51 | ED_ITS ---
HPI - Chest Pain 2 General: Chief Complaint: Chest Pain Stated Complaint: chest pains Time Seen by Provider: 10/23/24 13:39 Source: patient Mode of arrival: ambulatory Limitations: no limitations History of Present Illness: 59-year-old male states that he has been having chest pain started this morning around 10:00 he states that it is currently improved rates his pain a 1 out of 10 states he had taken aspirin at home he had a history of stent placement roughly a year ago. He denies any shortness of breath denies any fever denies any vomiting. Associated symptoms: Deny abdominal pain, dyspnea, fever(s), nausea or vomiting Related Data Home Medications Medication Instructions Recorded Confirmed adalimumab 40 mg/0.8 mL 40 mg SUBCUT Q14D 12/29/19 10/23/24 subcutaneous syringe kit (Humira) omeprazole magnesium 20 mg 20 mg PO QAM PRN Acid Reflux 03/16/23 10/23/24 capsule,delayed release mercaptopurine 50 mg tablet 75 mg PO DAILY 08/28/23 10/23/24 metoprolol tartrate 25 mg tablet 25 mg PO DAILY 11/26/23 10/23/24 bupropion HCl 150 mg 24 hr tablet, 150 mg PO QAM 10/23/24 10/23/24 extended release (Wellbutrin XL) magnesium 250 mg tablet 250 mg PO DAILY 10/23/24 10/23/24 Previous Rx's Medication Instructions Recorded aspirin 81 mg tablet,delayed 81 mg PO DAILY 90 days #90 tabs 07/11/23 release apixaban 5 mg tablet (Eliquis) 5 mg PO BID #60 tabs 09/08/24 Allergies Allergy/AdvReac Type Severity Reaction Status Date / Time prednisone Allergy CAUSES ME Verified 10/23/24 13:37 TO BE A JERK pregabalin [From Lyrica] Allergy MADE ME Verified 10/23/24 13:37 TRY TO COMMIT SUICIDE Sulfa (Sulfonamide AdvReac Mild RASH Verified 10/23/24 13:37 Antibiotics) Review of Systems 2 Const: Denies: fever(s), chills, body aches or change in appetite Eyes: Denies: blurry vision or eye discomfort ENMT: Denies: throat pain or dental pain Card: Reports: chest pain Resp: Denies: dyspnea GI: Denies: abdominal pain, nausea, vomiting or diarrhea Musc: Denies: neck pain or back pain Skin/Breast: Denies: rash Neuro: Denies: headache(s) PFSH ED 2 PFSH: Medical History Acute thrombosis of basilic vein Pain in finger of right hand Encounter to establish care Coronary artery disease NSTEMI (non-ST elevated myocardial infarction) Right hand pain Dyslipidemia Nocturia Wart of hand GERD (gastroesophageal reflux disease) Bilateral hand pain Ulcerative colitis Fibromyalgia Major depression Surgical History History of appendectomy History of tonsillectomy H/O vasectomy History of shoulder surgery Right - x3 (scope) Family History Other Aortic aneurysm Brain aneurysm Social History Smoking and tobacco/nicotine status: tobacco/nicotine user, details unknown Alcohol intake: current Alcohol intake frequency: 0-2 Drinks per Day Alcohol type: beer and hard liquor Substance/Drug Use: current Other substance/drug use details: THC IN PAST - USES CBD OIL NOW Physical Exam 2 Const: COMMON NORMALS: no acute distress, patient oriented x3 and healthy appearing HENMT: COMMON NORMALS: normocephalic and atraumatic HEAD & SCALP: n ormocephalic and atraumatic Eye: COMMON NORMALS: conjunctivae normal CONJUNCTIVA: Yes conjunctivae normal Neck/C-Spine: COMMON NORMALS: full ROM and supple Chest: COMMONS NORMALS: normal inspection of the chest Resp: COMMON NORMALS: normal respiratory effort Cardio: COMMON NORMALS: regular rate, regular rhythm and No murmurs present (Cardio) RATE: regular rate RHYTHM: regular rhythm GI: COMMON NORMALS: non-tender Extremity: COMMON NORMALS: normal to inspection and full ROM Neuro: COMMON NORMALS: patient oriented x3, moves all extremities and no focal motor deficits Psych: COMMON NORMALS: mental status grossly normal, Normal thought process present and cooperative THOUGHT PROCESS: Normal thought process present Skin: COMMON NORMALS: no rashes or lesions noted and no wounds GENERAL SKIN EXAM: no rashes or lesions noted Course 2 Vital Signs: Vital signs: Vital Signs Temperature 98.0 F 10/23/24 13:32 Pulse Rate 61 10/23/24 15:30 Respiratory Rate 18 10/23/24 15:30 Blood Pressure 130/80 10/23/24 15:30 Pulse Oximetry 95 10/23/24 15:30 Oxygen Delivery Me thod Room Air 10/23/24 13:32 MDM - Chest Pain Medical Decision Making Patient presents for chest pain is initial repeat troponin here negative is no signs of acute coronary syndrome he states he does have a follow-up with [facility] informed to call the office and CT get the follow-up moved up he has no signs of pulmonary embolism or acute coronary syndrome he is return if worsening he understands agrees to plan. Medical Records I reviewed the patient's medical records. Lab Data I reviewed the patient's lab results. 10/23/24 13:50 10/23/24 13:50 Radiology Impressions Chest X-Ray 10/23/24 13:26 Impression: Atherosclerosis. Laboratory Results WBC 7.36 10^3/uL (3.29-11.43) 10/23/24 13:50 RBC 4.45 10^6/uL (3.85-5.65) 10/23/24 13:50 Hgb 14.70 g/dL (11.27-16.99) 10/23/24 13:50 Hct 44.9 % (37-53) 10/23/24 13:50 MCV 100.9 fl (82-101) 10/23/24 13:50 MCH 33.0 pg (27-33) 10/23/24 13:50 MCHC 32.7 g/dL (30-55) 10/23/24 13:50 RDW 13.7 % (12.1-15.1) 10/23/24 13:50 Plt Count 316 10^3/cmm (157-399) 10/23/24 13:50 MPV 10.6 fL (7.4-10.4) H 10/23/24 13:50 Neut % (Auto) 70.6 % 10/23/24 13:50 Lymph % (Auto) 14.1 % 10/23/24 13:50 [place] % (Auto) 12.4 % 10/23/24 13:50 Eos % (Auto) 1.8 % 10/23/24 13:50 Baso % (Auto) 0.4 % 10/23/24 13:50 Neut # (Auto) 5.20 10^3/uL (1.8-7.7) 10/23/24 13:50 Lymph # (Auto) 1.0 10^3/uL (0.8-4.8) 10/23/24 13:50 [place] # (Auto) 0.9 10^3/uL (0.2-0.9) 10/23/24 13:50 Eos # (Auto) 0.1 10^3/uL (0.0-0.8) 10/23/24 13:50 Baso # (Auto) 0.0 10^3/uL (0.0-0.1) 10/23/24 13:50 Nucleated RBC % (auto) 0 % 10/23/24 13:50 Nucleated RBCs # 0.0 /100WBC 10/23/24 13:50 PT 13.50 SECONDS (12.1-14.9) 10/23/24 13:50 INR 0.96 (0.8-1.2) 10/23/24 13:50 Sodium 140 mmol/L (136-145) 10/23/24 13:50 Potassium 4.0 mmol/L (3.5-5.1) 10/23/24 13:50 Chloride 104 mmol/L (98-107) 10/23/24 13:50 Carbon Dioxide 25 mmol/L (22-29) 10/23/24 13:50 Anion Gap 15.0 (5-19) 10/23/24 13:50 BUN 18 mg/dL (8-23) 10/23/24 13:50 Creatinine 1.1 mg/dL (0.7-1.2) 10/23/24 13:50 GFR Calculation 68.3 mL/min (90-130) L 10/23/24 13:50 Glucose 98 mg/dL (65-115) 10/23/24 13:50 Calculated Osmolality 292 mOsm/kg (285-295) 10/23/24 13:50 Calcium 9.4 mg/dL (8.5-10.5) 10/23/24 13:50 Total Bilirubin 0.3 mg/dL (0.15-1.2) 10/23/24 13:50 AST 21 U/L (0-40) 10/23/24 13:50 ALT 30 U/L (0-41) 10/23/24 13:50 Alkaline Phosphatase 62 U/L (40-130) 10/23/24 13:50 Troponin T Baseline < 6 ng/L (0-15) 10/23/24 13:50 Troponin T 120 Minute 6.00 ng/L (0-15) 10/23/24 15:50 Delta Troponin T 0.04820 ABS# (0-10) 10/23/24 15:50 Total Protein 7.0 g/dL (6.6-8.7) 10/23/24 13:50 Albumin 4.2 g/dL (3.5-5.2) 10/23/24 13:50 Globulin 2.8 g/dL (1.3-4.6) 10/23/24 13:50 Lipase 41 U/L (13-60) 10/23/24 13:50 All radiology interpretation(s) finalized by discharge EKG Data EKG 1: I personally reviewed and interpreted this EKG as follows: EKG interpretation date: 10/23/24 EKG interpretation time: 13:43 Interpretation: nsr hr [address] elevation qrs 94 qtc 395 Discharge Plan Discharge Patient Disposition: Home Clinical Impression: Chest pain Condition: Stable Prescriptions: No Action Humira 40 mg/0.8 mL syringe kit 40 mg SUBCUT Q14D omeprazole magnesium 20 mg capsule,delayed release(DR/EC) 20 mg PO QAM PRN (Reason: Acid Reflux) Eliquis 5 mg tablet 5 mg PO BID Qty: 60 1RF metoprolol tartrate 25 mg tablet 25 mg PO DAILY aspirin 81 mg Tablet,Delayed Release (Dr/Ec) 81 mg PO DAILY 90 Days Qty: 90 3RF mercaptopurine 50 mg tablet 75 mg PO DAILY magnesium 250 mg Tablet 250 mg PO DAILY bupropion HCl [Wellbutrin XL] 150 mg tablet extended release 24 hr 150 mg PO QAM Rx Instructions: TAKE 1 TABLET BY MOUTH ONCE DAILY IN THE MORNING Discharge Orders: Discharge ED (Routine); Ordered 10/23/24 Ordered By: Stan Crockett Referrals: Makenna Casas MD [Primary Care Provider] - Discharge Diet: Advance as tolerated Discharge Activity: Resume usual activity Patient Instructions: Chest Pain (ED) Coding Level of Care Code ED Title Abstractor for Chg Oksana
[2024-10-23 13:56] LABS: Basophils % 0.4 %; Eosinophils # 0.1 10^3/uL (0.0-0.8); Eosinophils % 1.8 %; Hematocrit 44.9 % (37-53); Lymphocytes % 14.1 %; Mean Corpuscular HGB Conc 32.7 g/dL (30-55); Mean Corpuscular Volume 100.9 fl (82-101); Mean Platelet Volume 10.6 fL (7.4-10.4); Monocytes # 0.9 10^3/uL (0.2-0.9); Monocytes % 12.4 %; Neutrophils % 70.6 %; Nucleated Red Blood Cells % 0 %; Platelet Count 316 10^3/cmm (157-399); Red Blood Count 4.45 10^6/uL (3.85-5.65); Red Cell Distribution Width 13.7 % (12.1-15.1); White Blood Count 7.36 10^3/uL (3.29-11.43)
[2024-10-23 14:08] LABS: INR 0.96 (0.8-1.2)
[2024-10-23 14:14] LABS: Troponin(5th) Baseline < 6 ng/L (0-15)
[2024-10-23 14:18] LABS: Alanine Aminotransferase 30 U/L (0-41); Albumin Level 4.2 g/dL (3.5-5.2); Alkaline Phosphatase 62 U/L (40-130); Aspartate Amino Transferase 21 U/L (0-40); Blood Urea Nitrogen 18 mg/dL (8-23); Calcium 9.4 mg/dL (8.5-10.5); Carbon Dioxide 25 mmol/L (22-29); Chloride 104 mmol/L (98-107); Creatinine Clr Calc Pharmacy 76.7535; Globulin 2.8 g/dL (1.3-4.6); Glomerular Filtration Rate 68.3 mL/min (90-130); Glucose 98 mg/dL (65-115); Lipase 41 U/L (13-60); Osmolality Calculated 292 mOsm/kg (285-295); Sodium 140 mmol/L (136-145); Total Bilirubin 0.3 mg/dL (0.15-1.2)
[2024-10-23] MEDS: aspirin 81 mg Chew Tablet 243 MG PO (14:53)
--- NOTE | 2024-10-23 15:26 | ECG_ITS ---
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 Measurements Intervals [place] Rate: 61 P: 59 [place]: 159 QRS: 15 QRSD: 94 T: 31 QT: 393 QTc: 396 Interpretive Statements SINUS RHYTHM Compared to ECG 10/23/2024 13:28:07 Sinus bradycardia no longer present ST (T wave) deviation no longer present Electronically Signed On 10-25-2024 23:30:12 EEG TECHNICIAN by Hari Quiñones M.D. [id number]
[2024-10-23 16:19] LABS: Troponin 5 2HR Delta 0.00001 ABS# (0-10)
== END 2024-10-23 17:03 | disposition home or self-care (01) ==
PROVIDERS: Emergency Provider Emergency Medicine; PCP Pediatrics
DX: R07.9 Chest pain, unspecified (principal); Z79.01 Long term (current) use of anticoagulants; I25.10 Atherosclerotic heart disease of native coronary artery without angina pectoris; E78.5 Hyperlipidemia, unspecified
CPT/HCPCS: 36415; 71045; 80053; 83690; 84484; 85025; 85610; 93005; 99285

== ENCOUNTER 2024-11-04 07:54 | Oncology outpatient (recurring) (ONCR) | payer MEDICARE, SELFPAY | END 2024-11-28 23:59 | disposition home or self-care (01) | PROVIDERS: PCP Pediatrics; Visit Provider Internal Medicine Medical Oncology | DX: I82.611 Acute embolism and thrombosis of superficial veins of right upper extremity (principal); Z87.891 Personal history of nicotine dependence; Z95.9 Presence of cardiac and vascular implant and graft, unspecified | CPT/HCPCS: 99205 ==

== ENCOUNTER 2024-12-01 14:13 | Outpatient (CLI) | payer MEDICARE, SELFPAY ==
[2024-12-01 14:43] LABS: Basophils % 0.6 %; Eosinophils # 0.2 10^3/uL (0.0-0.8); Eosinophils % 2.3 %; Hematocrit 41.9 % (37-53); Lymphocytes # 1.1 10^3/uL (0.8-4.8); Lymphocytes % 15.6 %; Mean Corpuscular HGB Conc 33.9 g/dL (30-55); Mean Corpuscular Hemoglobin 33.7 pg (27-33); Mean Corpuscular Volume 99.5 fl (82-101); Mean Platelet Volume 10.7 fL (7.4-10.4); Monocytes # 0.6 10^3/uL (0.2-0.9); Monocytes % 8.8 %; Neutrophils # 5.25 10^3/uL (1.8-7.7); Neutrophils % 72.3 %; Nucleated Red Blood Cells % 0 %; Platelet Count 361 10^3/cmm (157-399); Red Blood Count 4.21 10^6/uL (3.85-5.65); White Blood Count 7.26 10^3/uL (3.29-11.43)
[2024-12-01 14:56] LABS: Alanine Aminotransferase 26 U/L (0-41); Albumin Level 4.4 g/dL (3.5-5.2); Alkaline Phosphatase 60 U/L (40-130); Aspartate Amino Transferase 23 U/L (0-40); Globulin 2.5 g/dL (1.3-4.6); Total Bilirubin 0.2 mg/dL (0.15-1.2); Total Protein 6.9 g/dL (6.6-8.7)
== END 2024-12-01 14:14 | disposition home or self-care (01) ==
PROVIDERS: PCP Pediatrics; Visit Provider Internal Medicine Gastroenterology
DX: K51.00 Ulcerative (chronic) pancolitis without complications (principal); Z51.81 Encounter for therapeutic drug level monitoring; I25.110 Atherosclerotic heart disease of native coronary artery with unstable angina pectoris; Z86.718 Personal history of other venous thrombosis and embolism; Z79.01 Long term (current) use of anticoagulants; I25.2 Old myocardial infarction
CPT/HCPCS: 36415; 80076; 85025; 99214

== ENCOUNTER 2025-09-07 07:23 | Outpatient (CLI) | payer MEDICARE, SELFPAY ==
--- NOTE | 2025-09-07 07:30 | USCV_ITS ---
Antolin Garcia Age: 60 Gender: M : 1965 Exam Date: 09/07/2025 07:33 Ordering Phys: Kym Murphy DO Technologist: [place] [facility] [place]: hx of rt arm throbus at the level of the basilic PROCEDURES: Venous duplex imaging was performed in only the right upper extremity. The following venous structures were evaluated: internal jugular vein, subclavian vein, axillary vein, and brachial veins. In addition, the basilic vein, cephalic vein, radial vein, and ulnar vein. FINDINGS: No evidence of deep vein thrombosis or superficial thrombophlebitis in the right upper extremity. The veins of the right upper extremity are readily compressible with normal venous flow dynamics including spontaneous flow, respiratory phasic variation and augmentation. CONCLUSIONS No right upper extremity DVT. Dr. Swetha Julio DO (Electronically Signed) Final Date: 07 September 2025 09:24 S
== END 2025-09-07 07:24 | disposition home or self-care (01) ==
LOC: RAD 07:24
PROVIDERS: Visit Provider Family Medicine
DX: Z86.718 Personal history of other venous thrombosis and embolism (principal)
CPT/HCPCS: 93971

== ENCOUNTER 2025-09-22 15:27 | Emergency (ER) | payer MEDICARE, SELFPAY ==
--- OUTSIDE RECORDS SUMMARY | 2024-07-26 03:00 | XMS_ITS ---
Author Organization [facility] Address [address] [place] [address] Care Team Providers Care Park Recreation Manager Name Role Phone Kym Murphy Primary Care Provider Unavaila Jessenia Harden Unavailable [phone] Migration, Provider Unavailable Unavailable REASON FOR VISIT EMR-Yan Encounters Encounter Location Date Provider Diagnosis Migrated_Facility 0 0 07/26/2024 Provider Migration Plan Of Treatment Medication Medication Name Sig Start Date Stop Date Notes Cyclobenzaprine HCl 10 MG Tablet 1 Table t Every Night PRN Oral 10/15/2017 01/13/2018 oxyCODONE HCl 10 MG Tablet 1 Tablet Four times a Day Oral 10/15/2017 11/14/2017 Next Appt Details Provider Name:Jessenia grove, 11/25/2025 09:30:00 AM, [address], [place], [address], Progress Notes * Antolin GARCIA RDOB: [birth year] (60 yo M)Acc No.[id number]:07/26/2024 Patient: Isabela OLIVAAntolin Monge :1965 A ge:59 Y S ex:Male Address:[address], [address] * Refills Stop Cyclobenzaprine HCl Tablet, 10 MG, Oral, 1 Tablet Every Night PRN Stop oxyCODONE HCl Tablet, 10 MG, Oral, 1 Tablet Four times a Day Subjective: * Chief Complaints: * E MR-Yan * * Date:
--- OUTSIDE RECORDS SUMMARY | 2024-07-27 03:00 | XMS_ITS ---
Author Organization [facility] Address [address] [place] [address] Care Team Providers Care Thread Cutter Name Role Phone Kym Murphy Primary Care Provider UnavailJessenia Vargas Unavailable [phone] Migration, Provider Unavailable Unavailable Allergies Allergen (clinical drug ingredient) Drug/Non Drug Allergy documented on EMR Reaction Allergy Type Onset Date Status Substance with sulfonamide structure and antibacterial mechanism of action (substance) SULFA (SULFONAMIDE ANTIBIOTICS) (uncoded) headache/rash Allergy Active pregabalin Lyrica Unknown Drug Allergy Active mesalamine Pentasa Unknown Drug Allergy Active PredniSONE Unknown Drug Allergy Active mesalamine Apriso Unknown Drug Allergy Active Substance with sulfonamide structure and antibacterial mechanism of action (substance) Sulfa Antibiotics Unknown Drug Allergy Active REASON FOR VISIT EMR-Yan Medications Medication SIG (Take, Route, Frequency, Duration) Notes Start Date End Date Status SEROquel *Pick strength-f orm from Medispan for eRX* Active Wellbutrin *Reorder from Nh dispan for eRx and Interaction Alerts* Active Temazepam *Pick strength-f orm from Medispan for eRX* Active B Complex *Pick strength-f orm from Medispan for eRX* Active Metoprolol *Reorder from N[facility] dispan for eRx and Interaction Alerts* Active Amino Acids *Pick strength-f orm from Medispan for eRX* Active Entocort EC *Reorder from Nh dispan for eRx and Interaction Alerts* Active Social History Social History Additional Details Category Social Info Options Details Migrated Social History Migrated Social History Alcoholic beverages? - Yes, Currently on disability? - Yes, If yes, frequency of alcoholic beverages - 2-3 drinks per day, Marital Status - , Smoking - No, Smoking status (MU) - Former smoker, Working currently? - No Encounters Encounter Location Date Provider Diagnosis Migrated_Facility 0 0 07/27/2024 Provider Migration Plan Of Treatment Next Appt Details Provider Name:Jessenia Monge Terrance [place], 11/25/2025 09:30:00 AM, [address], [place], [address], Progress Notes * Antolin GARCIA RDOB: [birth year] (60 yo M)Acc No.[id number]:07/27/2024 Patient: Antolin GALINDO :1965 A ge:59 Y S ex:Male Address:[address], [address] Subjective: * Chief Complaints: * E MR-Yan * Medical History: Colitis, D epression, F ibromyalgia, M igraines, * Surgical History: Appendectomy Shoulder surgery Tonsillectomy Vasectomy * Family History: M igrated Family History: : chronic pain, f ibromyalgia. * Social History: M igrated Social History: M igrated Social History: Alcoholic beverages? - Yes, C urrently on disability? - Yes, I f yes, frequency of alcoholic beverages - 2-3 drinks per day, M arital Status - , S moking - No, S moking status (MU) - Former smoker, W orking currently? - No. * Medications: T akingSEROquel , Notes to Pharmacist: *Pick strength-form from Medispan for eRX*B Complex , Notes to Pharmacist: *Pick strength-form from Medispan for eRX*Temazepam , Notes to Pharmacist: *Pick strength-form from Medispan for eRX*Wellbutrin , Notes to Pharmacist: *Reorder from Medispan for eRx and Interaction Alerts*Entocort EC , Notes to Pharmacist: *Reorder from Medispan for eRx and Interaction Alerts*Amino Acids , Notes to Pharmacist: *Pick strength-form from Medispan for eRX*Metoprolol , Notes to Pharmacist: *Reorder from Medispan for eRx and Interaction Alerts*Taking SEROquel , Notes to Pharmacist: *[facility]*Taking B Complex , Notes to Pharmacist: *[facility]*Taking Temazepam , Notes to Pharmacist: *[facility]*Taking Wellbutrin , Notes to Pharmacist: *[facility]*Taking Entocort EC , Notes to Pharmacist: *[facility] and Interaction Alert[facility]*Taking Amino Acids , Notes to Pharmacist: *[facility]*Taking Metoprolol , Notes to Pharmacist: *[facility] and Interaction Alerts* * Allergies: S ULFA (SULFONAMIDE ANTIBIOTICS): headache/rash - AllergyLyrica: AllergyPentasa: AllergyApriso: AllergySulfa Antibiotics: AllergyPredniSONE: Allergy * * Date:
--- OUTSIDE RECORDS SUMMARY | 2024-09-03 02:00 | XMS_ITS ---
Author Organization [facility] Address [address] [place] [address] Care Team Providers Care Dry Kiln Worker Name Role Phone Kym Murphy Primary Care Provider Unavaila Jessenia Harden [phone] REASON FOR VISIT 1 year F/U UC, not has not had any labs done Encounters Encounter Location Date Provider Diagnosis [facility] [address] [place] [address] 09/03/2024 Jessenia Spears Plan Of Treatment Next Appt Details Provider Name:Jessenia grove, 11/25/2025 09:30:00 AM, [address] [place], [address], Progress Notes * Antolin GARCIA RDOB: [birth year] (60 yo M)Acc No.[id number]:09/03/2024 Progress Notes Patient: Isabela Antolin jaeger Provider: Moreno Spears MD :1965 A ge:59 Y S ex:Male Date:09/03/2024 Address:[address] [place] [id number] Pcp:Kym Murphy Subjective: * Chief Complaints: * 1 year F/U UC, not has not had any labs done * Electronic signature of Ryder Spears MD on 09/22/2025 at 03:32 PM GRID OPERATOR Sign off status: Pending * Provider: Moreno Spears MD Date: 1 11/04/2023 Generated for Amadou banuelos/Prasad/Victor M on: 11/23/2024 03:32 PM GRID OPERATOR
--- OUTSIDE RECORDS SUMMARY | 2024-12-04 07:30 | XMS_ITS ---
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, theraputic drug monitoring Medications Medication SIG (Take, Route, Frequency, Duration) Notes Start Date End Date Status Amino Acids *Pick strength-form from [facility] for eRX* Not-Taking Entocort EC *Reorder from [facility] for eRx and Interaction Alerts* Not-Taking Reglan 10 MG Tablet take 1 tablet at 4:00pm Orally once; Duration: 1 days 11/26/2024 Active Metoprolol *Reorder from [facility] for eRx and Interaction Alerts* Not-Taking Humira (2 Pen) 40 MG/0.4ML Auto-injector Kit INJECT 1 PEN SUBCUTANEOUSLY EVERY OTHER WEEK; Duration: 28 days Active Wellbutrin *Reorder from [facility] for eRx and Interaction Alerts* Not-Taking SEROquel *[facility]* Not-Taking Clopidogrel Bisulfate 75 MG Tablet 1 tablet Orally Once a day Not-Taking Temazepam *[facility]* Not-Taking B Complex *[facility]* Not-Taking Metoprolol Tartrate 25 MG Tablet 1/2 tablet Orally Twice a day Active Mercaptopurine 50 MG Tablet TAKE 1 & 1/2 (ONE & ONE-HALF) TABLETS BY MOUTH ONCE DAILY; Duration: 30 Active Misc Natural Product CBD oil Active Atorvastatin Calcium 40 MG Tablet 1 tablet Orally Once a day Not-Taking Isosorbide Mononitrate ER 30 MG Tablet Extended Release 24 Hour 1 tablet in the morning Orally Once a day Not-Taking Wellbutrin SR 150 MG Tablet Extended Release 12 Hour 1 tablet in the morning Orally Once a day Active Omeprazole 20 MG Capsule Delayed Release 1 tablet 30 minutes before morning meal Orally As needed OTC Active Aspirin 81 MG Tablet Delayed Release 1 tablet Orally Once a day Active Metoprolol Succinate 50 MG Capsule ER 24 Hour Sprinkle 1 capsule Orally Once a day Not-Taking Eliquis 5 MG Tablet 1 tablet Orally twice a day Active Encounters Encounter Location Date Provider Diagnosis [facility] [address] [place] [address] 12/04/2024 Jessenia Spears Plan Of Treatment Next Appt Details Provider Name:Jessenia grove, 11/25/2025 09:30:00 AM, [address], [place], [address], Progress Notes * Antolin GARCIA RDOB: [birth year] (60 yo M)Acc No.[id number]:12/04/2024 History and Physical Patient: Antolin Bishop Provider: Moreno Spears MD :1965 A ge:59 Y S ex:Male Date:12/04/2024 Address:[address] [place], [place] [id number] Pcp:Kym Murphy Check Out:08:22 AM 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 Subjective: * Chief Complaints: * U lcerative chronic pancolitis w/o complications, theraputic drug monitoring * Medications: T akingAspirin 81 MG Tablet Delayed Release 1 tablet Orally Once a day Eliquis 5 MG Tablet 1 tablet Orally twice a day Omeprazole 20 MG Capsule Delayed Release 1 tablet 30 minutes before morning meal Orally As needed , Notes to Pharmacist: OTCWellbutrin SR 150 MG Tablet Extended Release 12 Hour 1 tablet in the morning Orally Once a day Metoprolol Tartrate 25 MG Tablet 1/2 tablet Orally Twice a day Misc Natural Product , Notes to Pharmacist: CBD oilMercaptopurine 50 MG Tablet TAKE 1 & 1/2 (ONE & ONE- HALF) TABLETS BY MOUTH ONCE DAILY Reglan 10 MG Tablet take 1 tablet at 4:00pm Orally once Humira (2 Pen) 40 MG/0.4ML Auto-injector Kit INJECT 1 PEN SUBCUTANEOUSLY EVERY OTHER WEEK Taking Aspirin 81 MG Tablet Delayed Release 1 tablet Orally Once a day Taking Eliquis 5 MG Tablet 1 tablet Orally twice a day Taking Omeprazole 20 MG Capsule Delayed Release 1 tablet 30 minutes before morning meal Orally As needed , Notes to Pharmacist: OTCTaking Wellbutrin SR 150 MG Tablet Extended Release 12 Hour 1 tablet in the morning Orally Once a day Taking Metoprolol Tartrate 25 MG Tablet 1/2 tablet Orally Twice a day Taking Misc Natural Product , Notes to Pharmacist: CBD oilTaking Mercaptopurine 50 MG Tablet TAKE 1 & 1/2 (ONE & ONE-HALF) TABLETS BY MOUTH ONCE DAILY Taking Reglan 10 MG Tablet take 1 tablet at 4:00pm Orally once Taking Humira (2 Pen) 40 MG/0.4ML Auto-injector Kit INJECT 1 PEN SUBCUTANEOUSLY EVERY OTHER WEEK Not-TakingMetoprolol Succinate 50 MG Capsule ER 24 Hour Sprinkle 1 capsule Orally Once a day Isosorbide Mononitrate ER 30 MG Tablet Extended Release 24 Hour 1 tablet in the morning Orally Once a day Atorvastatin Calcium 40 MG Tablet 1 tablet Orally Once a day Clopidogrel Bisulfate 75 MG Tablet 1 tablet Orally Once a day SEROquel , Notes to Pharmacist: *Pick strength-form from [facility] for eRX*B Complex , Notes to Pharmacist: *Pick strength-form from [facility] for eRX*Temazepam , Notes to Pharmacist: *Pick strength-form from [facility] for eRX*Wellbutrin , Notes to Pharmacist: *Reorder from [facility] for eRx and Interaction Alerts*Entocort EC , Notes to Pharmacist: *[facility]*Amino Acids , Notes to Pharmacist: *[facility]*Metoprolol , Notes to Pharmacist: *Reorder from [facility] for eRx and Interaction Alerts*Not-Taking Metoprolol Succinate 50 MG Capsule ER 24 Hour Sprinkle 1 capsule Orally Once a day Not-Taking Isosorbide Mononitrate ER 30 MG Tablet Extended Release 24 Hour 1 tablet in the morning Orally Once a day Not-Taking Atorvastatin Calcium 40 MG Tablet 1 tablet Orally Once a day Not-Taking Clopidogrel Bisulfate 75 MG Tablet 1 tablet Orally Once a day Not-Taking SEROquel , Notes to Pharmacist: *Pick strength-form from [facility] for eRX*Not-Taking B Complex , Notes to Pharmacist: *Pick strength-form from [facility] for eRX*Not-Taking Temazepam , Notes to Pharmacist: *Pick strength-form from [facility] for eRX*Not-Taking Wellbutrin , Notes to Pharmacist: *Reorder from [facility] for eRx and Interaction Alerts*Not-Taking Entocort EC , Notes to Pharmacist: *Reorder from [facility] for eRx and Interaction Alerts*Not-Taking Amino Acids , Notes to Pharmacist: *Pick strength-form from [facility] for eRX*Not-Taking Metoprolol , Notes to Pharmacist: *Reorder from [facility] for eRx and Interaction Alerts* Billing Information: * Procedure Codes: * Electronic signature of Ryder Spears MD on 09/22/2025 at 03:34 PM 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 Sign off status: Pending * Provider: Moreno Spears MD Date: 0 12/04/2024 Generated for Amadou banuelos/Prasad/Victor M on: 1 11/23/2024 03:34 PM 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
[2025-09-22 15:31] VITALS: BP 170/78; PULSE 82; RESP 17; TEMP 36.4; O2SAT 100; BMI 27.3
--- OUTSIDE RECORDS SUMMARY | 2025-09-22 15:33 | XMS_ITS | Encounter Summary ---
Author Organization [facility] Address [address] [place] [address] Care Team Providers Care Steel Melter Name Role Phone Mark Mendez DO Primary Care Provider [phone] Encounter Details Date Type Department Care Team (Late st Contact Info) Description 07/30/2002 Outpatient [facility] Gastroenterology[address] [place] [id number] Luis Enrique Jose MD 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
--- OUTSIDE RECORDS SUMMARY | 2025-09-22 15:33 | XMS_ITS | Patient Health Record ---
Author Organization [facility] Address [address] [place] [address] Care Team Providers Care Apartment Leasing Manager Name Role Phone Kym Murphy Primary Care Provider Jessenia Malone Unavailable [phone] Allergies Allergen (clinical drug ingredient) Drug/Non Drug Allergy documented on EMR Reaction Allergy Type Onset Date Status pregabalin Lyrica Unknown Drug Allergy Active mesalamine Pentasa Unknown Drug Allergy Active PredniSONE Unknown Drug Allergy Active mesalamine Apriso Unknown Drug Allergy Active Substance with sulfonamide structure and antibacterial mechanism of action (substance) Sulfa Antibiotics headache/rash Drug Allergy Active Reason For Referral No Information Medications Medication SIG (Take, Route, Frequency, Duration) Notes Start Date End Date Status Wellbutrin *Reorder from [facility] for eRx and Interaction Alerts* Not-Taking Metoprolol Tartrate 25 MG Tablet 1/2 tablet Orally Twice a day Active Amino Acids *Pick strength-form from [facility] for eRX* Not-Taking Wellbutrin SR 150 MG Tablet Extended Release 12 Hour 1 tablet in the morning Orally Once a day Active Entocort EC *Reorder from [facility] for eRx and Interaction Alerts* Not-Taking Adalimumab-adbm (2 Pen) 40 MG/0.4ML Auto-injector Kit 1 pen Subcutaneous every other week; Duration: 30 days 09/09/2025 Active Aspirin 81 MG Tablet Delayed Release 1 tablet Orally Once a day Active SEROquel *Pick strength-form from [facility] for eRX* Not-Taking Clopidogrel Bisulfate 75 MG Tablet 1 tablet Orally Once a day Not-Taking Metoprolol Succinate 50 MG Capsule ER 24 Hour Sprinkle 1 capsule Orally Once a day Not-Taking Temazepam *Pick strength-form from [facility] for eRX* Not-Taking Eliquis 5 MG Tablet 1 tablet Orally twice a day Active B Complex *Pick strength-form from [facility] for eRX* Not-Taking Reglan 10 MG Tablet take 1 tablet at 4:00pm Orally once; Duration: 1 days 11/26/2024 Active Misc Natural Product CBD oil Active Metoprolol *Reorder from [facility] for eRx and Interaction Alerts* Not-Taking Atorvastatin Calcium 40 MG Tablet 1 tablet Orally Once a day Not-Taking Isosorbide Mononitrate ER 30 MG Tablet Extended Release 24 Hour 1 tablet in the morning Orally Once a day Not-Taking Omeprazole 20 MG Capsule Delayed Release 1 tablet 30 minutes before morning meal Orally As needed OTC Active Mercaptopurine 50 MG Tablet 1.5 tablets Orally daily; Duration: 30 days Active Immunizations Vaccine Route Administration Date Status Comme nts Influenza (whole), CPT 69174 Inactive Unknown 02/18/2018 Administered Influenza (whole), CPT 12680 Inactive Unknown 08/26/2018 Administered Influenza (whole), CPT 90185 Inactive Unknown 08/08/2019 Administered Social History Tobacco Use: Social History Observation Description Date Details (start date - stop date) Former Smoker NA - NA Social History Drugs/Alcohol: Social Info Question Answer Notes Alcohol Screen (Audit-C) Did you have a drink containing alcohol in the past year? Yes How often did you have a drink containing alcohol in the past year? 4 or more times a week (4 points) How many drinks did you have on a typical day when you were drinking in the past year? 1 or 2 drinks (0 point) Points 4 Interpretation Positive Caffeine Intake: 2-3 cups per day Coffee Tobacco Use: Social Info Question Answer Notes Tobacco Control (Standard) Tobacco use: Former smoker How long has it been since you last smoked? Greater than 10 years Additional Details Category Social Info Options Details Drugs/Alcohol: Do you smoke marijuana? Ad mits using Edibles Migrated Social History Migrated Social History Alcoholic beverages? - Yes, Currently on disability? - Yes, If yes, frequency of alcoholic beverages - 2-3 drinks per day, Marital Status - , Smoking - No, Smoking status (MU) - Former smoker, Working currently? - No zzMigrated Social History Migrated Social History Advance Directive: Current and Verified Signed on 06/18/2013, withhold IV and tube nutrition, withhold surgery, withhold antibiotics, withhold mechanical ventilator, withhold radiation therapy, withhold dialysis, withhold chemotherapy, withhold CPR Other All other Life Prolonging ... 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 Problems Problem Type SNOMED Code ICD Code Onset Dates Problem Status W/U Status Risk Notes Problem Chronic ulcerative pancolitis (346845294) Ulcerative (chronic) pancolitis without complications (K51.00) Active confirmed Problem Left sided ulcerative colitis (524856784) Left sided colitis without complications (K51.50) Active confirmed Problem Anxiety (07176796) Anxiety (F41.9) Active confi rmed Problem Atherosclerotic heart disease of [place] coronary artery without angina pectoris (658225253760811) Coronary artery disease involving [place] coronary artery of [place] heart without angina pectoris (I25.10) Active confirmed Problem Deep venous thrombosis (468353296) DVT (deep venous thrombosis) (I82.409) Active confirmed Problem Chronic depression (668387960) Chronic depression (F32.9) Active confirmed Problem Use of anticoagulation (641801263) Chronic anticoagulation (Z79.01) Active confirmed Problem Drug monitoring done (534588924) Therapeutic drug monitoring (Z51.81) Active confirmed Problem Degeneration of intervertebral disc (96517106) Multilevel degenerative disc disease (M53.9) Active confirmed Problem Chronic ulcerative pancolitis (940190459) Ulcerative chronic pancolitis without complications (K51.00) Active confirmed Problem Patient post percutaneous transluminal coronary angioplasty (finding) (305624395) S/P PTCA (percutaneous transluminal coronary angioplasty) (Z98.61) Active confirmed Problem Anal fissure (85604743) Anal fissure (565.0) 013 Problem resolved confirmed [id number] 911- Problem Fibromyalgia (688396835) Fibromyalgia (729.1) 013 Problem resolved confirmed [id number] 911- Vital Signs Heart Rate 61 /min 11/26/2024 Temperature 96.9 degrees Fahrenheit 11/26/2024 Respiratory Rate 18 /min 11/26/2024 Height-cm 172.72 cm 11/26/2024 Oximetry 100 % 11/26/2024 Blood pressure diastolic 80 mm Hg 11/26/2024 Weight-kg 84.19 kg 11/26/2024 Height 68 in 11/26/2024 Blood pressure systolic 130 mm Hg 11/26/2024 Weight 185.6 lbs 11/26/2024 BMI 28.22 kg/m2 11/26/2024 Encounters Encounter Location Date Provider Diagnosis [facility] [address] [place] [address] 12/04/2024 [facility] [address] [place] [address] 11/26/2024 [facility] Ulcerative chronic pancolitis without complications K51.00 ; Therapeutic drug monitoring Z51.81 ; Coronary artery disease involving [place] coronary artery of [place] heart without angina pectoris I25.10 ; S/P PTCA (percutaneous transluminal coronary angioplasty) Z98.61 ; Multilevel degenerative disc disease M53.9 ; Anxiety F41.9 ; Chronic depression F32.9 ; DVT (deep venous thrombosis) I82.409 and Chronic anticoagulation Z79.01 [facility] [address] [place] [address] 09/07/2025 [facility] Ulcerative chronic pancolitis without complications K51.00 [facility] [address] [place] [address] 05/28/2025 [facility] [address] [place] [address] 12/14/2024 [facility] [address] [place] [address] 11/26/2024 [facility] [address] [place] [address] 11/26/2024 [facility] Assessments Encounter Date Diagnosis (ICD Code) Assessment Notes Treatment Notes Treatment Clinical Notes Section Notes 11/26/2024 Therapeutic drug monitoring (ICD-10 - Z51.81) 11/26/2024 Ulcerative chronic pancolitis without complications (ICD-10 - K51.00) 09/07/2025 Ulcerative chronic pancolitis without complications (ICD-10 - K51.00) 11/26/2024 Coronary artery disease involving [place] coronary artery of [place] heart without angina pectoris (ICD-10 - I25.10) 11/26/2024 S/P PTCA (percutaneous transluminal coronary angioplasty) (ICD-10 - Z98.61) 11/26/2024 Multilevel degenerative disc disease (ICD-10 - M53.9) 11/26/2024 Anxiety (ICD-10 - F41.9) 11/26/2024 Chronic depression (ICD-10 - F32.9) 11/26/2024 DVT (deep venous thrombosis) (ICD-10 - I82.409) 11/26/2024 Chronic anticoagulation (ICD-10 - Z79.01) 11/26/2024 Other The report of the patient's last colonoscopy from 2021 was reviewed and noted. He is due for surveillance colonoscopy. His disease appears to be in clinical remission at this time. Check CBC, liver function tests. Schedule the patient for surveillance colonoscopy. Meanwhile, the patient is advised to continue Humira and 6-MP per the current schedule. We will see the patient back in the clinic in 1 year. He is advised to call if he has acute GI complaints or concerns. Plan Of Treatment Pending Test Test Name Order Date CBC w\ Auto Diff [id number] 09/04/2022 CBC w\ Auto Diff 54175 01/03/2021 Hepatic Function Panel [id number] 01/03/2021 Hepatic Function Panel [id number] 09/04/2022 CRP [id number] 09/04/2022 Colonoscopy, High Risk Screening-[id number] 0 11/26/2024 CBC w\ Auto Diff [id number] 11/26/2024 Hepatic Function Panel [id number] 11/26/2024 Next Appt Details Provider Name:Jessenia grove, 11/25/2025 09:30:00 AM, [address], [place], [address], Insurance Providers Payer Name Payer Address Payer Phone Subscriber Number Group Number Insured Name Patient Relationship to Insured Coverage Start Date Coverage End Date [facility] Medicare Advantage PPO [address] [address] [place] [address] [id number] Antolin Garcia Self - patient is the insured 3 Medical (General) History Medical History History ICD Code INFLUENZA VACCINE: refused TETANUS VACCI NE: cannot recall Anxiety Chronic depression Chronic ulcerative colitis Degeneration of intervertebral disc Fibromyalgia Heart attack 07/09/2023 hx of anal fissure chronic pain fibromyalgia bilateral inguinal hernia GERD umbilical hernia Surgical History Surgery Date(Month/Year) appendectomy vasectomy tonsillectomy right shoulder surgery x2 Heart stent 2022 triple hernia repair(bilateral inguinal, umbilical) 01/2024 Colonoscopy-ademoma polyps, chronic coli tis left colon 11/2021 Hospitalization History Reason Date(Month/Year) [facility] Heart Attack and Stint p lace 07/2023 see surgical hx
--- OUTSIDE RECORDS SUMMARY | 2025-09-22 15:33 | XMS_ITS | Encounter Summary ---
Author Organization [facility] Address [address] [place] [address] Care Team Providers Care Plant Operations Coordinator Name Role Phone Mark Mendez DO Primary Care Provider [phone] Encounter Details Date Type Department Care Team (Late st Contact Info) Description 03/02/2003 Outpatient [facility] Gastroenterology[address] [place] [address] Social History Tobacco Use Types Packs/Day Years Used Date Smoking Tobacco: Never Assessed Sex and Gender Information Value Date Recorded Sex Assigned at Not on file Legal Sex Male 5:30 AM RESOURCE MANAGEMENT SPECIALIST Gender Identity Not on file Sexual Orientation Not on file documented as of this encounter Plan of Treatment Not on file documented as of this encounter Visit Diagnoses Not on filedocumented in this encounter Care Teams Plant Operations Coordinator Relationship Specialty Start Date End Date Mark Mendez DO [address] [place] [address] PCP - General 07/10/05 documented as of this encounter
--- OUTSIDE RECORDS SUMMARY | 2025-09-22 15:33 | XMS_ITS | Encounter Summary ---
Author Organization [facility] Address [address] [place] [address] Care Team Providers Care Metal Tank Builder Name Role Phone Mark Mendez DO Primary Care Provider Encounter Details Date Type Department Care Team (Latest Contact Info) Description 02/03/2005 Outpatient [facility] [place] [address] [facility] [address] [place] [address] Miya Jose FNP NO ADDRESS ON FILE ULCERATIVE COLITIS NOS (CMS/HCC) (Primary Dx) Social History Tobacco Use Types Packs/Day Years Used Date Smoking Tobacco: Never Assessed Sex and Gender Information Value Date Recorded Sex Assigned at Not on file Legal Sex Male 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
--- OUTSIDE RECORDS SUMMARY | 2025-09-22 15:33 | XMS_ITS | Encounter Summary ---
Author Organization [facility] Address [address] [place] [address] Care Team Providers Care Premium Auditor Name Role Phone Mark Mendez DO Primary Care Provider [phone] Encounter Details Date Type Department Care Team (Late st Contact Info) Description 07/10/2005 Outpatient Historical [facility] Gastroenterology- [address] [place] [phone] Luis Enrique Jose MD [facility] Dis[place] [address] Acute gastritis (Primary Dx); ABDOMINAL PAIN EPIGASTRIC; VOMITING ALONE Social History Tobacco Use Types Packs/Day Years Used Date Smoking Tobacco: Never Assessed Sex and Gender Information Value Date Recorded Sex Assigned at Not on file Legal Sex Male 5:30 AM RESOURCING CONSULTANT Gender Identity Not on file Sexual Orientation Not on file documented as of this encounter Plan of Treatment Not on file documented as of this encounter Visit Diagnoses Diagnosis Acute gastritis- Primary Acute gastritis without mention of hemorrhage Abdominal pain, epigastric Vomiting alone documented in this encounter Care Teams Premium Auditor Relationship Specialty Start Date End Date Mark Mendez DO [address] [place], [place] [address] PCP - General 07/10/05 documented as of this encounter
--- OUTSIDE RECORDS SUMMARY | 2025-09-22 15:33 | XMS_ITS | Encounter Summary ---
Author Organization [facility] Address [address] [place] [address] Care Team Providers Care Machinist Tool And Die Name Role Phone Mark Mendez DO Primary Care Provider [phone] Encounter Details Date Type Department Care Team (Late st Contact Info) Description 01/01/2003 Outpatient [facility] Gastroenterology[address] [place] [phone] Luis Enrique Jose MD [facility] Disability [place] [address] Ulcerative proctitis (CMS/HCC) (Primary Dx) Social History Tobacco Use Types Packs/Day Years Used Date Smoking Tobacco: Never Assessed Sex and Gender Information Value Date Recorded Sex Assigned at Not on file Legal Sex Male 5:30 AM RN FIELD Gender Identity Not on file Sexual Orientation Not on file documented as of this encounter Plan of Treatment Not on file documented as of this encounter Visit Diagnoses Diagnosis Ulcerative proctitis (CMS/HCC)- Primary Ulcerative (chronic) proctitis documented in this encounter Care Teams Machinist Tool And Die Relationship Specialty Start Date End Date Mark Mendez DO [address] [place] [address] PCP - General 07/10/05 documented as of this encounter
--- OUTSIDE RECORDS SUMMARY | 2025-09-22 15:33 | XMS_ITS | Encounter Summary ---
Author Organization [facility] Address [address] [place] [address] Care Team Providers Care Intensive Care Medicine Specialist Name Role Phone Mark Mendez DO Primary Care Provider [phone] Encounter Details Date Type Department Care Team (Latest Contact Info) Description 01/21/2003 Outpatient Historical [facility] Rheumatology- [facility] [address] [place] [phone] Khanh Hinds MD NO ADDRESS ON FILE RHEUMATISM NOS (Primary Dx); DEPRESSIVE DISORDER NEC Social History Tobacco Use Types Packs/Day Years Used Date Smoking Tobacco: Never Assessed Sex and Gender Information Value Date Recorded Sex Assigned at Not on file Legal Sex Male 5:30 AM 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
--- OUTSIDE RECORDS SUMMARY | 2025-09-22 15:33 | XMS_ITS | Encounter Summary ---
Author Organization [facility] Address [address] [place] [address] Care Team Providers Care Production Support Engineer Name Role Phone Mark Mendez DO Primary Care Provider [phone] Encounter Details Date Type Department Care Team (Latest Contact Info) Description 12/03/2002 Outpatient Historical [facility] Rheumatology- [facility] [address] [place] [address] Khanh Hinds MD NO ADDRESS ON FILE RHEUMATISM NOS (Primary Dx); DEPRESSIVE DISORDER NEC Social History Tobacco Use Types Packs/Day Years Used Date Smoking Tobacco: Never Assessed Sex and Gender Information Value Date Recorded Sex Assigned at Not on file Legal Sex Male 5:30 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
--- OUTSIDE RECORDS SUMMARY | 2025-09-22 15:33 | XMS_ITS | Encounter Summary ---
Author Organization [facility] Address [address] [place] [address] Care Team Providers Care Grants Analyst Name Role Phone Mark Mendez DO Primary Care Provider [phone] Encounter Details Date Type Department Care Team (Late st Contact Info) Description 07/10/2005 Outpatient Historical [facility] Endoscopy [place] [address] [place] [phone] Luis Enrique Jose MD [address] [facility] Dis[place] [address] ABDOMINAL PAIN EPIGASTRIC (Primary Dx) Social History Tobacco Use Types Packs/Day Years Used Date Smoking Tobacco: Never Assessed Sex and Gender Information Value Date Recorded Sex Assigned at Not on file Legal Sex Male 5:30 AM SINGING MESSENGER Gender Identity Not on file Sexual Orientation Not on file documented as of this encounter Plan of Treatment Not on file documented as of this encounter Visit Diagnoses Diagnosis Abdominal pain, epigastric- Primary documented in this encounter Care Teams Grants Analyst Relationship Specialty Start Date End Date Mark Mendez DO [address] [place], [place] [address] PCP - General 07/10/05 documented as of this encounter
--- OUTSIDE RECORDS SUMMARY | 2025-09-22 15:33 | XMS_ITS | Encounter Summary ---
Author Organization [facility] Address [address] [place] [address] Care Team Providers Care Seed Packer Name Role Phone Mark Mendez DO Primary Care Provider [phone] Encounter Details Date Type Department Care Team (Late st Contact Info) Description 10/15/2002 Outpatient [facility] Gastroenterology [address] [place] [phone] Luis Enrique Jose MD [facility] Disability [place] [address] Ulcerative proctosigmoiditis (CMS/HCC) (Primary Dx) Social History Tobacco Use Types Packs/Day Years Used Date Smoking Tobacco: Never Assessed Sex and Gender Information Value Date Recorded Sex Assigned at Not on file 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
--- OUTSIDE RECORDS SUMMARY | 2025-09-22 15:33 | XMS_ITS | Encounter Summary ---
Author Organization [facility] Address [address] [place] [address] Care Team Providers Care Claims Administrator Name Role Phone Mark Mendez DO Primary Care Provider [phone] Encounter Details Date Type Department Care Team (Late st Contact Info) Description 02/26/2002 Outpatient [facility] Gastroenterology[address] [place] [phone] Luis Enrique Jose MD [facility] [place] [address] RECTAL & ANAL DIS NEC (Primary Dx) Social History Tobacco Use Types Packs/Day Years Used Date Smoking Tobacco: Never Assessed Sex and Gender Information Value Date Recorded Sex Assigned at Not on file Legal Sex Male 5:30 AM VP COMMUNICATIONS Gender Identity Not on file Sexual Orientation Not on file documented as of this encounter Plan of Treatment Not on file documented as of this encounter Visit Diagnoses Diagnosis Other specified disorder of rectum and anus- Primary documented in this encounter Care Teams Claims Administrator Relationship Specialty Start Date End Date Mark Mendez DO [address] [place] [address] PCP - General 07/10/05 documented as of this encounter
--- OUTSIDE RECORDS SUMMARY | 2025-09-22 15:33 | XMS_ITS | Encounter Summary ---
Author Organization [facility] Address [address] [place] [address] Care Team Providers Care Multicraft Operator Name Role Phone Mark Mendez DO Primary Care Provider [phone] Encounter Details Date Type Department Care Team (Latest Contact Info) Description 10/15/2002 Outpatient Historical [facility] Rheumatology- [facility] [address] [place] [address] Khanh Hinds MD NO ADDRESS ON FILE RHEUMATISM NOS (Primary Dx) Social History Tobacco Use Types Packs/Day Years Used Date Smoking Tobacco: Never Assessed Sex and Gender Information Value Date Recorded Sex Assigned at Not on file Legal Sex Male 5:30 AM FRUIT COORDINATOR Gender Identity Not on file Sexual Orientation Not on file documented as of this encounter Plan of Treatment Not on file documented as of this encounter Visit Diagnoses Diagnosis Rheumatism, unspecified and fibrositis- Primary documented in this encounter Care Teams Multicraft Operator Relationship Specialty Start Date End Date aMrk Mendez DO [address] [place] [address] PCP - General 07/10/05 documented as of this encounter
--- OUTSIDE RECORDS SUMMARY | 2025-09-22 15:33 | XMS_ITS | Clinical Summary ---
Author Organization [facility] Address [address] [facility] Attn: Epic Prelude ADT [place] [address] Care Team Providers Care Planning Specialist Name Role Phone Mark Mendez Primary Care Provider Allergies Active Allergy Reactions Criticality Noted Date Comments Nsaids (Non-Steroidal Anti-Inflammatory Drug) Other (See Comments) 11/19/2008 Has ulcerative colitis Cannot take NSAIDS Prednisone Other (See Comments) 09/13/2018 I turn into a jerk. It makes me want to fight. Topical creams have broke me out in horrible rashes. Sulfa (Sulfonamide Antibiotics) Rash,Headache Low 06/11/2008 Medications mesalamine (LIALDA) 1.2 gram Tablet, Delayed Release (E.C.) Take 1,200 mg by mouth daily. 09/13/2018 Active mercaptopurine (PURINETHOL) 50 mg tablet 11/06/2018 Active budesonide (ENTOCORT EC) 3 mg Enteric Coated 24 hour capsule Take 3 mg by mouth daily. 12/09/2018 Active cannabidioL (EPIDIOLEX) 100 mg/mL Solution Take by mouth 2 times daily. 12/18/2018 Active Active Problems Problem Noted Date Diagnosed Date Anal or rectal pain 02/23/2011 Overview (01/27/2021): Patient started having rectal pain similar to previous episodes of anal fissure Ulcerative colitis 09/03/2008 Family History Medical History Relation Name Comments Heart Disease Father Heart Disease Mother Relation Name Status Comments Father Mother CHF. 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 Gender Identity Not on file Sexual Orientation Not on file Last Filed Vital Signs Vital Sign Reading Time Taken Comments Blood Pressure 126/81 01/30/2019 11:25 AM CDT Pulse 68 01/30/2019 11:25 AM CDT Temperature 36.7 C (98.1 F) 12/18/2018 10:00 AM CDT Respiratory Rate 13 12/18/2018 9:50 AM CDT Oxygen Saturation - - Inhaled Oxygen Concentration - - Weight 83.5 kg (184 lb) 01/30/2019 11:25 AM CDT Height 177.8 cm (5' 10 ) 01/30/2019 11:25 AM CDT Body Mass Index 26.4 01/30/2019 11:25 AM CDT Plan of Treatment Health Maintenance Due Date Last Done Comments DTAP/TDAP/TD VACCINES (1 - Tdap) 1983 FIT-DNA Q 3 years 2009 FIT/FOBT Q 1 year 2009 Flex Sig/CT Colonography Q 5 years 2009 ZOSTER VACCINE (1 of 2) 2014 COLORECTAL SCREENING 09/09/2019 09/09/2009 Colorectal Cancer Screening 09/09/2019 INFLUENZA VACCINE (#1) 2025 RSV VACCINE (60+ or ) (1 - 1-dose 75+ series) 2039 Medical Devices Implanted Type Area Driveway Attendant Device Identifier Shelf Expiration Date Model / Serial / Lot Eugene Sut Bio Swvlck-C [id number] - [id number] Implanted:11/30 by Christ Chairez MD (Quantity not on file) Eugene Right: Shoulder [employer] 08/30/2020 AR-2324BCC -2 / / [id number] - [id number] Implanted:Qty: 1 on 10/14/2008 Graft Right: Shoulder LIFENET 04/28/2013 FST / [id number] / N/A Description:SEMITENODESIS GR AFT TISSUE ID # [id number]:7.0mm x 23.0cm Sn/A - [id number] Implanted:Qty: 1 on 10/14/2008 Graft Right: Shoulder [employer] 05/01/2013 AR-2258 / N/A / [id number] Description:AC GRAFT ROPE PB [id number] Peek Tenodesis Screw Implanted:Qty: 1 on 10/14/2008 Screw Right: Shoulder [employer] 08/01/2013 AR-1655PS- 10 / N/A / [id number] Description:PEEK Tenodesis S crew 5.5X10MM Ac Graft Rope Implanted:Qty: 1 on 11/20/2008 Right: Shoulder [employer] 05/01/2013 AR-2258 / / [id number] Graft Rope Tendon Implanted:Qty: 1 on 11/20/2008 Right: Shoulder LIFENET 07/22/2013 08-5414-00 7 / / Description:Graft ID: [id number]: FROPE Insurance * Guarantor: ANTOLIN GARCIA Account Type Relation to Patient Date of Phone Billing Address Personal/Family [id number] [address] RX OPTUM RX Member Subscriber Plan / Payer (Ef fective 2018-Present) Name:Antolin Garcia Relation to Subscriber:Self Name:Antolin Garcia Subscriber ID:Not on file Payer ID:Not on file Group ID:[id number] Type:RX Medicare Part D Address: [place] Advance Directives For more information, please contact: [phone] Documents on File Type Date Recorded 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
--- OUTSIDE RECORDS SUMMARY | 2025-09-22 15:34 | XMS_ITS | Encounter Summary ---
Author Organization [facility] Address [address] [place] [address] Care Team Providers Care Watershed Manager Name Role Phone Mark Mendez DO Primary Care Provider [phone] Encounter Details Date Type Department Care Team (Late st Contact Info) Description 09/16/2001 Outpatient Historical [facility] Luis Enrique Jose MD [address] [place] [address] Disability Determination Services [place], [place] [address] ULCERATIVE COLITIS NOS (CMS/HCC) (Primary Dx) Social History Tobacco Use Types Packs/Day Years Used Date Smoking Tobacco: Never Assessed Sex and Gender Information Value Date Recorded Sex Assigned at Not on file 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
--- OUTSIDE RECORDS SUMMARY | 2025-09-22 15:34 | XMS_ITS | Encounter Summary ---
Author Organization [facility] Address [address] [place] [address] Care Team Providers Care Replenishment Buyer Name Role Phone Mark Mendez DO Primary Care Provider [phone] Encounter Details Date Type Department Care Team (Late st Contact Info) Description 07/29/2001 Outpatient Historical [facility] Luis Enrique Jose MD [address] [place] [address] Disability Determination Services [place], [place] [id number] RECTAL & ANAL DIS NEC (Primary Dx) Social History Tobacco Use Types Packs/Day Years Used Date Smoking Tobacco: Never Assessed Sex and Gender Information Value Date Recorded Sex Assigned at Not on file 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
--- OUTSIDE RECORDS SUMMARY | 2025-09-22 15:34 | XMS_ITS | Encounter Summary ---
Author Organization [facility] Address [address] [place] [address] Care Team Providers Care Wood Planer Name Role Phone Mark Mendez DO Primary Care Provider [phone] Encounter Details Date Type Department Care Team (Late st Contact Info) Description 10/23/2001 Outpatient Historical [facility] Luis Enrique Jose MD [address] [place] [address] Disability Determination Services [place], [place] [address] HEADACHE (Primary Dx) Social History Tobacco Use Types Packs/Day Years Used Date Smoking Tobacco: Never Assessed Sex and Gender Information Value Date Recorded Sex Assigned at Not on file 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
--- OUTSIDE RECORDS SUMMARY | 2025-09-22 15:34 | XMS_ITS | Encounter Summary ---
Author Organization [facility] Address [address] [place] [address] Care Team Providers Care Grain Loader Name Role Phone Mark Mendez DO Primary Care Provider [phone] Encounter Details Date Type Department Care Team (Late st Contact Info) Description 05/11/1999 Outpatient Historical [facility] Luis Enrique Jose MD [address] [place] [address] Disability Determination Services [place], [place] [address] Ulcerative enterocolitis (CMS/HCC) (Primary Dx) Social History Tobacco Use Types Packs/Day Years Used Date Smoking Tobacco: Never Assessed Sex and Gender Information Value Date Recorded Sex Assigned at Not on file 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
--- OUTSIDE RECORDS SUMMARY | 2025-09-22 15:34 | XMS_ITS | Encounter Summary ---
Author Organization [facility] Address [address] [place] [address] Care Team Providers Care Airplane Pilot Supervisor Name Role Phone Mark Mendez DO Primary Care Provider [phone] Encounter Details Date Type Department Care Team (Late st Contact Info) Description 01/25/2000 Outpatient Historical [facility] Luis Enrique Jose MD [address] [place] [address] Disability Determination Services [place], [place] [address] Ulcerative enterocolitis (CMS/HCC) (Primary Dx) Social History Tobacco Use Types Packs/Day Years Used Date Smoking Tobacco: Never Assessed Sex and Gender Information Value Date Recorded Sex Assigned at Not on file 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
--- OUTSIDE RECORDS SUMMARY | 2025-09-22 15:34 | XMS_ITS | Encounter Summary ---
Author Organization [facility] Address [address] [place] [address] Care Team Providers Care Automobile Assembly Supervisor Name Role Phone Mark Mendez DO Primary Care Provider [phone] Encounter Details Date Type Department Care Team (Late st Contact Info) Description 03/09/1999 Outpatient Historical [facility] Luis Enrique Jose MD [address] [place] [address] Disability Determination Services [place], [place] [address] Ulcerative enterocolitis (CMS/HCC) (Primary Dx) Social History Tobacco Use Types Packs/Day Years Used Date Smoking Tobacco: Never Assessed Sex and Gender Information Value Date Recorded Sex Assigned at Not on file 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
--- OUTSIDE RECORDS SUMMARY | 2025-09-22 15:34 | XMS_ITS | Encounter Summary ---
Author Organization [facility] Address [address] [place] [address] Care Team Providers Care Pharmacy Services Director Name Role Phone Mark Mendez DO Primary Care Provider Encounter Details Date Type Department Care Team (Late st Contact Info) Description 11/13/2001 Outpatient Historical [facility] Luis Enrique Jose MD [address] [place] [address] Disability Determination Services [place], [place] [address] ULCERATIVE COLITIS NOS (CMS/HCC) (Primary Dx) Social History Tobacco Use Types Packs/Day Years Used Date Smoking Tobacco: Never Assessed Sex and Gender Information Value Date Recorded Sex Assigned at Not on file 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
--- OUTSIDE RECORDS SUMMARY | 2025-09-22 15:34 | XMS_ITS | Clinical Summary ---
Author Organization [facility] Address [address] [place] [address] Care Team Providers Care Electric Meter Installer Helper Name Role Phone Mark Mendez DO Primary Care Provider [phone] Allergies Active Allergy Reactions Criticality Noted Date [...] (E.C.) Take 1,200 mg by mouth daily. Active mercaptopurine (PURINETHOL) 50 mg tablet 11/06/2018 Active budesonide (ENTOCORT EC) 3 mg Enteric Coated 24 hour capsule Take 3 mg by mouth daily. Active cannabidiol, CBD, extract 100 mg/mL Solution Take by mouth 2 times daily. Active Active Problems Problem Noted Date Diagnosed Date Anal or rectal pain 02/23/2011 Overview (02/23/2011): Patient started having rectal pain similar to previous episodes of anal fissure Ulcerative colitis 09/03/2008 Family History Medical History Relation Name Comments Heart Disease Father Heart Disease Mother Relation Name Status Comments Father Mother CHF. 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 Gender Identity Not on file Sexual Orientation Not on file Last Filed Vital Signs Vital Sign Reading Time Taken Comments Blood Pressure 126/81 01/30/2019 11:25 AM CDT Pulse 68 01/30/2019 11:25 AM CDT Temperature 36.7 C (98.1 F) 12/18/2018 10:00 AM CDT Respiratory Rate 13 12/18/2018 9:50 AM CDT Oxygen Saturation 93% 12/18/2018 10:30 AM CDT Inhaled Oxygen Concentration - - Weight 83.5 [...] (1 of 2) 2014 COLORECTAL SCREENING 09/09/2019 09/09/2009, 09/09/2009, 09/20/2001 Colorectal Cancer Screening 09/09/2019 INFLUENZA VACCINE (#1) 2025 RSV VACCINE (60+ or ) (1 - 1-dose 75+ series) 2039 Medical Devices Implanted Type Area Delinquency Prevention Social Worker Device Identifier Shelf Expiration Date Model / Serial / Lot [place] Sut Bio Swvlck-C [id number] - [id number] Implanted:12/18 by Christ Chairez MD at [facility] (Quantity not on file) [place] Right: Shoulder [employer] 08/30/2020 AR-2324BCC -2 / / [id number] Implanted:Qty: 1 on 10/14/2008 at [facility] Graft Right: Shoulder LIFENET 04/28/2013 [facility] / [id number] / N/A Description:SEMITENODESIS GR AFT TISSUE ID # [id number]:7.0mm x 23.0cm Sn/A - [id number] Implanted:Qty: 1 on 10/14/2008 at [facility] Graft Right: Shoulder [employer] 05/01/2013 AR-2258 / N/A / [id number] Description:AC GRAFT ROPE PB [id number] Peek Tenodesis Screw Implanted:Qty: 1 on 10/14/2008 at [facility] Screw Right: Shoulder [employer] 08/01/2013 AR-1655PS- 10 / N/A / [id number] Description:PEEK [employer]odesis S crew 5.5X10MM Ac Graft Rope Implanted:Qty: 1 on 11/20/2008 at [facility] Right: Shoulder [employer] 05/01/2013 AR-2258 / / [id number] Graft Rope Tendon Implanted:Qty: 1 on 11/20/2008 at [facility] Right: Shoulder LIFENET 07/22/2013 08-5414-00 7 / / Description:Graft ID: [id number]: FROPE Procedures Procedure Name Priority Date/Time Associated Diagnosis Comments ENDOSCOPY, COLON, DIAGNOSTIC Routine 09/09/2009 10:49 AM BOAT REPAIRER Ulcerative Colitis ([facility]) from Last 3 Months or Most Recently Relevant to Health Maintenance Insurance DUAL COMPLETE [facility] PPO D-SNP RX OPTUM RX Member Subscriber Plan / Payer (Ef fective 2018-Present) Name:Antolin Garcia Relation to Subscriber:Self Name:Antolin Garcia Subscriber ID:Not on file Payer ID:Not on file Group ID:[id number] Type:RX Medicare Part D Address: [place] Advance Directives For more information, please contact: [phone] Documents on File Type Date Recorded Patient Monument Stonecutter Expl anation Advance Directive POA 12/18/2018 7:55 AM A dvance Directive POA Advance Directive Living Will 12/18/2018 7:54 AM Advance Directive Living Will * Full Code (Latest Code Status on File) Date Activated Date Inactivated Comments 12/18/2018 6:56 AM 12/18/2018 9:56 AM * Full Code Date Activated Date Inactivated Comments 09/09/2009 10:50 AM 09/10/2009 2:02 AM * Full Code Date Activated Date Inactivated Comments 11/20/2008 6:52 AM 11/20/2008 11:29 AM * Full Code Date Activated Date Inactivated Comments 11/20/2008 6:48 AM 11/20/2008 6:52 AM * Full Code Date Activated Date Inactivated Comments 10/14/2008 9:25 AM 10/15/2008 2:01 AM Care Teams Electric Meter Installer Helper Relationship Specialty Start Date End Date Mark Mendez DO [address] [place] [address] PCP - General 07/10/05
--- OUTSIDE RECORDS SUMMARY | 2025-09-22 15:34 | XMS_ITS | Encounter Summary ---
Author Organization [facility] Address [address] [place] [address] Care Team Providers Care Stroke Program Coordinator Name Role Phone Mark Mendez DO Primary Care Provider [phone] Encounter Details Date Type Department Care Team (Late st Contact Info) Description 03/11/2007 Outpatient [facility] Gastroenterology[address] [place] [id number] Luis Enrique Jose MD [facility] [place]ability [place] [address] Unspecified Ulcerative Colitis (CMS/HCC) (Primary Dx) Social History Tobacco Use Types Packs/Day Years Used Date Smoking Tobacco: Never Assessed Sex and Gender Information Value Date Recorded Sex Assigned at Not on file 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
--- OUTSIDE RECORDS SUMMARY | 2025-09-22 15:34 | XMS_ITS | Encounter Summary ---
Author Organization [facility] Address [address] [place] [address] Care Team Providers Care Rn Unit Manager Name Role Phone Mark Mendez DO Primary Care Provider [phone] Encounter Details Date Type Department Care Team (Late st Contact Info) Description 12/18/2001 Outpatient Historical [facility] Luis Enrique Jose MD [address] [place] [address] Disability Determination Services [place], [place] [address] AFTERCARE CORRECTION USE MEDICATN (Primary Dx) Social History Tobacco Use Types Packs/Day Years Used Date Smoking Tobacco: Never Assessed Sex and Gender Information Value Date Recorded Sex Assigned at Not on file 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
--- OUTSIDE RECORDS SUMMARY | 2025-09-22 15:34 | XMS_ITS | Encounter Summary ---
Author Organization [facility] Address [address] [place] [address] Care Team Providers Care Fire Extinguisher Mechanic Name Role Phone Mark Mendez DO Primary Care Provider [phone] Encounter Details Date Type Department Care Team (Late st Contact Info) Description 02/14/1999 Outpatient Historical [facility] [place] [address] [place] [address] Disability Determination Services [place], [place] [address] Anal or rectal pain (Primary Dx) Social History Tobacco Use Types Packs/Day Years Used Date Smoking Tobacco: Never Assessed Sex and Gender Information Value Date Recorded Sex Assigned at Not on file 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
--- OUTSIDE RECORDS SUMMARY | 2025-09-22 15:34 | XMS_ITS | Encounter Summary ---
Author Organization [facility] Address [address] [place] [address] Care Team Providers Care Inventory Management Specialist Name Role Phone Mark Mendez DO Primary Care Provider [phone] Encounter Details Date Type Department Care Team (Late st Contact Info) Description 10/26/1999 Outpatient Historical [facility] Luis Enrique Jose MD [address] [place] [address] Disability Determination Services [place], [place] [address] Ulcerative enterocolitis (CMS/HCC) (Primary Dx) Social History Tobacco Use Types Packs/Day Years Used Date Smoking Tobacco: Never Assessed Sex and Gender Information Value Date Recorded Sex Assigned at Not on file 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
--- OUTSIDE RECORDS SUMMARY | 2025-09-22 15:34 | XMS_ITS | Encounter Summary ---
Author Organization [facility] Address [address] [place] [address] Care Team Providers Care Director Global Strategic Publisher Sales Name Role Phone Mark Mendez DO Primary Care Provider [phone] Encounter Details Date Type Department Care Team (Late st Contact Info) Description 12/15/1998 Outpatient Historical [facility] Luis Enrique Jose MD [address] [place] [address] Disability Determination Services [place], [place] [address] Ulcerative enterocolitis (CMS/HCC) (Primary Dx) Social History Tobacco Use Types Packs/Day Years Used Date Smoking Tobacco: Never Assessed Sex and Gender Information Value Date Recorded Sex Assigned at Not on file 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
--- OUTSIDE RECORDS SUMMARY | 2025-09-22 15:34 | XMS_ITS | Encounter Summary ---
Author Organization [facility] Address [address] [place] [address] Care Team Providers Care Figurine Maker Name Role Phone Mark Mendez DO Primary Care Provider [phone] Encounter Details Date Type Department Care Team (Late st Contact Info) Description 09/20/2001 Outpatient Historical [facility] Luis Enrique Jose MD [address] [place] [address] Disability Determination Services [place], [place] [address] ULCERATIVE COLITIS NOS (CMS/HCC) (Primary Dx) Social History Tobacco Use Types Packs/Day Years Used Date Smoking Tobacco: Never Assessed Sex and Gender Information Value Date Recorded Sex Assigned at Not on file 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
--- OUTSIDE RECORDS SUMMARY | 2025-09-22 15:34 | XMS_ITS | Encounter Summary ---
Author Organization [facility] Address [address] [place] [address] Care Team Providers Care Clother In Name Role Phone Mark Mendez DO Primary Care Provider [phone] Encounter Details Date Type Department Care Team (Late st Contact Info) Description 06/22/1999 Outpatient Historical [facility] Luis Enrique Jose MD [address] [place] [address] Disability Determination Services [place], [place] [address] Ulcerative enterocolitis (CMS/HCC) (Primary Dx) Social History Tobacco Use Types Packs/Day Years Used Date Smoking Tobacco: Never Assessed Sex and Gender Information Value Date Recorded Sex Assigned at Not on file 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
--- OUTSIDE RECORDS SUMMARY | 2025-09-22 15:34 | XMS_ITS | Encounter Summary ---
Author Organization [facility] Address [address] [facility] Attn: [place] [address] Care Team Providers Care Tax Examiner Name Role Phone Mark Mendez DO Primary Care Provider [phone] Encounter Details Date Type Department Care Team (Late st Contact Info) Description 09/20/2001 Outpatient [place] [address] [place] [address] [place] [address] Social History Tobacco Use Types Packs/Day Years Used Date Smoking Tobacco: Never Assessed Sex and Gender Information Value Date Recorded Sex Assigned at Not on file 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
--- OUTSIDE RECORDS SUMMARY | 2025-09-22 15:34 | XMS_ITS | Encounter Summary ---
Author Organization [facility] Address [address] [facility] [address] Attn: [place] [address] Care Team Providers Care Piano Mover Name Role Phone Mark Mendez DO Primary Care Provider [phone] Encounter Details Date Type Department Care Team (Late st Contact Info) Description 10/23/2001 Outpatient [place] [address] [place] [address] Disability [place] [address] Social History Tobacco Use Types Packs/Day Years Used Date Smoking Tobacco: Never Assessed Sex and Gender Information Value Date Recorded Sex Assigned at Not on file 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
--- NOTE | 2025-09-22 16:08 | CTR_ITS ---
PROCEDURE INFORMATION: Exam: CT Head Without Contrast Exam date and time: 09/22/2025 4:21 PM Age: 60 years old Clinical indication: Other: Weakness TECHNIQUE: Imaging protocol: Computed tomography of the head without contrast. Radiation optimization: All CT scans at this facility use at least one of these dose optimization techniques: automated exposure control; mA and/or kV adjustment per patient size (includes targeted exams where dose is matched to clinical indication); or iterative reconstruction. COMPARISON: No relevant prior studies available. RADIATION DOSE METRICS: Total DLP (mGy-cm): 1115.5 FINDINGS: Brain: Normal. No hemorrhage. Unremarkable white matter. No mass effect. Cerebral ventricles: No ventriculomegaly. Paranasal sinuses: See Bones finding. Mastoid air cells: Visualized mastoid air cells are well aerated. Bones: There is mild right maxillary chronic mucoperiosteal hypertrophy. Remaining paranasal sinuses are free of inflammation to the extent seen. The right frontal sinus is aplastic. Soft tissues: Unremarkable. Vasculature: Mild parasellar internal carotid artery atherosclerotic calcifications are present. No intracranial vascular lesions are visible. CT/CT head wo con* [id number] IMPRESSION: No acute intracranial pathology.
--- NOTE | 2025-09-22 16:08 | XRR_ITS ---
PROCEDURE INFORMATION: Exam: XR Chest Exam date and time: 09/22/2025 4:09 PM Age: 60 years old Clinical indication: Cough and dyspnea; Additional info: Dyspnea/cough TECHNIQUE: Imaging protocol: Radiologic exam of the chest. Views: 1 view. COMPARISON: CR XR chest 1V portable [id number] 10/23/2024 1:46 PM FINDINGS: Lungs: Lungs are without visible infiltrate or mass lesion. The left lung base infiltrate seen on the prior study has resolved. Pleural spaces: Unremarkable. No pleural effusion. No pneumothorax. Heart/Mediastinum: Unremarkable. No cardiomegaly. Vasculature: Minimal aortic calcification is seen without suspected aneurysm. Bones/joints: Surgical buttons are identified stabilizing the right coracoclavicular ligament, unchanged from prior study. There is stable asymmetric widening of the right coracoacromial distance. Soft tissues: Hiatus hernia is again noted. XR/XR chest 1V portable [id number] IMPRESSION: 1. No acute cardiopulmonary pathology. 2. Stable appearance, hiatus hernia.
--- NOTE | 2025-09-22 16:19 | ED_ITS ---
HPI - Weakness 2 General: Chief complaint: Weakness Stated complaint: weakness, nausea, dizziness Time Seen by Provider: 09/22/25 16:02 History of Present Illness: 60-year-old male presents emergency room complaining of dizziness nausea generally not feeling well last couple of days. He has a history of previous coronary artery disease he has had a stent placed. No focal neurologic deficits. He does occasionally get some vision changes. Nothing persistent at this time no recent head injury or trauma. On initial evaluation NIH is a 0 Associated symptoms: Denies chest pain, chills, dysuria or fever(s) Related Data Home Medications ?Medication ?Instructions ?Recorded ?Confirmed adalimumab 40 mg/0.8 mL 40 mg SUBCUT Q14D 12/29/19 1 11/24/24 subcutaneous syringe kit (Humira) omeprazole magnesium 20 mg 20 mg PO QAM PRN Acid Reflu x 03/16/23 09/23/25 capsule,delayed release mercaptopurine 50 mg tablet 75 mg PO DAILY 08/28/23 metoprolol tartrate 25 mg tablet 25 mg PO DAILY 09/23/25 vitamin D3 125 mcg (5,000 cap PO DAILY 11/04/24 unit)-vitamin K2 100 mcg capsule Previous Rx's ?Medication ?Instructions ?Recorded aspirin 81 mg tablet,delayed 81 mg PO DAILY 90 days #9 0 tabs 07/11/23 release Wellbutrin XL 150 mg 24 hr tablet, 150 mg PO QAM #90 t abs 09/17/25 extended release (bupropion HCl) ondansetron HCl 4 mg tablet 4 mg PO Q6H PRN nausea and 09/22/25 vomiting #20 tabs Allergies Allergy/AdvReac Type Severity Reaction Status Date / Time prednisone Allergy CAUSES ME Verified 09/23/25 12:15 TO BE A JERK pregabalin (From Lyrica) Allergy MADE ME Verified 09/23/25 12:15 TRY TO COMMIT SUICIDE Sulfa (Sulfonamide AdvReac Mild RASH Verified 09/23/25 12:15 Antibiotics) Review of Systems 2 Const: Denies: fever(s) or chills Card: Denies: chest pain Resp: Denies: dyspnea GI: Denies: abdominal pain : Denies: dysuria, urinary frequency or urinary urgency Musc: Denies: neck pain or back pain Skin/Breast: Denies: rash PFSH ED 2 PFSH: Medical History Acute thrombosis of right basilic vein Pain in finger of right hand Encounter to establish care Coronary artery disease NSTEMI (non-ST elevated myocardial infarction) Right hand pain Dyslipidemia Nocturia Wart of hand GERD (gastroesophageal reflux disease) Bilateral hand pain Ulcerative colitis Fibromyalgia Major depression Surgical History History of coronary artery stent placement 07/09/23 History of appendectomy History of tonsillectomy H/O vasectomy History of shoulder surgery Right - x3 (scope) Family History Other Aortic aneurysm Brain aneurysm Social History Smoking and tobacco/nicotine status: former use of tobacco/nicotine Alcohol intake: current Alcohol intake frequency: 0-2 Drinks per Day Alcohol type: beer and hard liquor Substance/Drug Use: current Other substance/drug use details: THC IN PAST - USES CBD OIL NOW Physical Exam 2 Const: COMMON NORMALS: no acute distress GENERAL APPEARANCE: cooperative and comfortable ORIENTATION/CONSCIOUSNESS: Yes awake, Yes oriented to person, Yes oriented to place and Yes oriented to time HENMT: COMMON NORMALS: normocephalic, atraumatic and hearing grossly normal bilaterally HEAD & SCALP: normocephalic and atraumatic Resp: COMMON NORMALS: normal respiratory effort, No retractions, No use of accessory muscles and clear to auscultation bilaterally AUSCULTATION: clear to auscultation bilaterally Cardio: COMMON NORMALS: regular rate, regular rhythm and No murmurs present (Cardio) RATE: regular rate RHYTHM: regular rhythm GI: COMMON NORMALS: Soft to palpation and No hepatosplenomegaly present A USCULTATION: Yes normoactive bowel sounds PALPATION: Yes Soft to palpation, No Tenderness to palpation present (GI), No Guarding due to palpation present (GI) and Yes No hepatosplenomegaly present Extremity: COMMON NORMALS: normal to inspection, capillary refill normal, no clubbing, cyanosis or edema, no calf tenderness and no pedal edema Neuro: SENSORIUM/ORIENTATION: Yes oriented to person, Yes oriented to place and Yes oriented to time OTHER: No focal neurologic deficits are noted. Skin: COMMON NORMALS: no rashes or lesions noted GENERAL SKIN EXAM: no rashes or lesions noted Course 2 Vital Signs: Vital signs: Vital Signs Temperature 97.5 F L 09/22/25 15:31 Pulse Rate 79 09/22/25 20:14 Respiratory Rate 18 09/22/25 18:33 Blood Pressure 156/83 09/22/25 20:14 Pulse Oximetry 99 09/22/25 18:33 Oxygen Delivery Me thod Room Air 09/22/25 18:33 MDM - Weakness Medical Decision Making Medical decision making Social determinants: None I reviewed the patient's medical record. I reviewed the patient's current home meds. Alternate historians: None Differential diagnosis: Dehydration viral infection. Hypertension TIA CVA Lab Review: None labs reviewed include a CBC which is markable hemoglobin is 13 to platelets are normal. Anion gap 23.3 creatinine 1 BUN 18 liver functions normal initial troponin 21 1 hour troponin 23.3 with a positive delta 2.3. Urine shows 3+ ketones Imaging: CT head negative for acute stroke or subacute stroke CTA head and neck also negative for any stenosis or occlusions or thrombosis. Chest x-ray reviewed by myself no acute infiltrates hiatal hernia present no increased pulmonary vascular congestion or effusions Assessment of risk Level of risk: Moderate Hospitalization considerations: Consideration for hospitalization pending completed evaluation for stroke Reexamination: Improved after IV fluids Assessment and plan: Patient improved with IV fluids she been dizzy. Cardiac workup negative EKG does not show any acute changes cardiac enzymes did not show significant delta. She had 3+ ketones and a positive anion gap. Her NIH initially and on follow-up is negative for acute stroke. Discharge patient home. Should have short-term follow-up to evaluate blood pressure. I think some of the dehydration was caused by gastroenteritis given ondansetron to use as needed Lab Data 09/22/25 16:31 09/22/25 16:31 Radiology Impressions Chest X-Ray 09/22/25 16:08 IMPRESSION: 1. No acute cardiopulmonary pathology. 2. Stable appearance, hiatus hernia. ADDENDUM: 09/22/25 1640 There is a slight increase in superior right hemithorax medial lung density, unchanged dating back to 08/28/2023 along with some slight concavity to the adjacent trachea at the thoracic inlet. Findings suggest substernal thyroid or thyromegaly. Head CT 09/22/25 16:08 IMPRESSION: No acute intracranial pathology. Head/Neck CTA 09/22/25 16:49 IMPRESSION: No large vessel stenosis or occlusion. IMPRESSION: No stenosis or occlusion. REFERENCES: NASCET CRITERIA. The degree of stenosis in the cervical segment of the internal carotid artery is based on NASCET criteria. Normal is no stenosis. Mild is less than 50% stenosis. Moderate is 50-69% stenosis. Severe is 70% to 99% stenosis. Total occlusion is no detectable patent lumen. ADDENDUM: 09/22/25 1841 COMMENT: THIS REPORT CONTAINS FINDINGS THAT MAY BE CRITICAL TO PATIENT CARE. The exam findings were verbally communicated by me to SIDDHARTHA RAINEY via telephone conference at 6:39 PM ADJUNCT INSTRUCTOR on 09/22/2025. The findings were acknowledged and understood. Laboratory Results WBC 8.14 10^3/uL (3.29-11.43) 09/22/25 16:31 RBC 4.10 10^6/uL (3.85-5.65) 09/22/25 16:31 Hgb 13.20 g/dL (11.27-16.99) 09/22/25 16:31 Hct 39.8 % (37-53) 09/22/25 16:31 MCV 97.1 fl (82-101) 09/22/25 16:31 MCH 32.2 pg (27-33) 09/22/25 16:31 MCHC 33.2 g/dL (30-55) 09/22/25 16:31 RDW 16.0 % (12.1-15.1) H 09/22/25 16:31 Plt Count 398 10^3/cmm (157-399) 09/22/25 16:31 MPV 10.6 fL (7.4-10.4) H 09/22/25 16:31 Neut % (Auto) 85.3 % 09/22/25 16:31 Lymph % (Auto) 9.1 % 09/22/25 16:31 [place] % (Auto) 4.8 % 09/22/25 16:31 Eos % (Auto) 0.0 % 09/22/25 16:31 Baso % (Auto) 0.4 % 09/22/25 16:31 Neut # (Auto) 6.95 10^3/uL (1.8-7.7) 09/22/25 16:31 Lymph # (Auto) 0.7 10^3/uL (0.8-4.8) L 09/22/25 16:31 [place] # (Auto) 0.4 10^3/uL (0.2-0.9) 09/22/25 16:31 Eos # (Auto) 0.0 10^3/uL (0.0-0.8) 09/22/25 16:31 Baso # (Auto) 0.0 10^3/uL (0.0-0.1) 09/22/25 16:31 Nucleated RBC % (auto) 0 % 09/22/25 16:31 Nucleated RBCs # 0.0 /100WBC 09/22/25 16:31 Sodium 137 mmol/L (136-145) 09/22/25 16:31 Potassium 4.3 mmol/L (3.5-5.1) 09/22/25 16:31 Chloride 97 mmol/L (98-107) L 09/22/25 16:31 Carbon Dioxide 21 mmol/L (22-29) L 09/22/25 16:31 Anion Gap 23.3 (5-19) H 09/22/25 16:31 BUN 18 mg/dL (8-23) 09/22/25 16:31 Creatinine 1.0 mg/dL (0.7-1.2) 09/22/25 16:31 GFR Calculation 76.0 mL/min (90-130) L 09/22/25 16:31 Glucose 80 mg/dL (65-115) 09/22/25 16:31 Calculated Osmolality 285 mOsm/kg (285-295) 09/22/25 16:31 Calcium 9.8 mg/dL (8.5-10.5) 09/22/25 16:31 Total Bilirubin 0.6 mg/dL (0.15-1.2) 09/22/25 16:31 AST 26 U/L (0-40) 09/22/25 16:31 ALT 32 U/L (0-41) 09/22/25 16:31 Alkaline Phosphatase 57 U/L (40-130) 09/22/25 16:31 Creatine Kinase 182 U/L (39-308) 09/22/25 16:31 Troponin T Baseline 21 ng/L (0-15) H 09/22/25 16:49 Troponin T 60 Minute 23.30 ng/L (0-15) H 09/22/25 18:01 Delta Troponin T 2.30 ABS# (0-10) 09/22/25 18:01 Total Protein 7.2 g/dL (6.6-8.7) 09/22/25 16:31 Albumin 4.4 g/dL (3.5-5.2) 09/22/25 16:31 Globulin 2.8 g/dL (1.3-4.6) 09/22/25 16:31 Urine Color [place] (Yellow) A 09/22/25 18:16 Urine Appearance Clear (CLEAR) 09/22/25 18:16 Urine pH 5.5 (5-7) 09/22/25 18:16 Ur Specific [place] 1.045 (1.005-1.030) H 09/22/25 18:16 Urine Protein Trace (Negative) A 09/22/25 18:16 Urine Glucose (UA) Negative (Normal) 09/22/25 18:16 Urine Ketones 3+ (Negative) H 09/22/25 18:16 Urine Blood Negative (Negative) 09/22/25 18:16 Urine Nitrate Negative (Negative) 09/22/25 18:16 Urine Bilirubin Negative (Negative) 09/22/25 18:16 Urine Urobilinogen 1.0 mg/dL (Negative) 09/22/25 18:16 Ur Leukocyte Esterase Negative (Negative) 09/22/25 18:16 Urine RBC 0-2 /hpf (0-2) 09/22/25 18:16 Urine WBC 0-5 /hpf (0-5) 09/22/25 18:16 Ur Squamous Epith Cells 0-5 /hpf (0-5) 09/22/25 18:16 Amorphous Sediment Not Reportable 09/22/25 18:16 Urine Bacteria None seen /hpf (NONE) 09/22/25 18:16 Hyaline Casts 1.65 /lpf 09/22/25 18:16 Influenza A (PCR) Negative (Negative) 09/22/25 16:53 Influenza Type B (PCR) Negative (Negative) 09/22/25 16:53 RSV (PCR) Negative (Negative) 09/22/25 16:53 SARS-CoV-2 (PCR) Negative (Negative) 09/22/25 16:53 All radiology interpretation(s) finalized by discharge EKG Data EKG 1: I personally reviewed and interpreted this EKG as follows: Interpretation: EKG 09/22/2025 1814 sinus rhythm rate 83 RI interval 154 QTc [address] changes noted. Discharge Plan Discharge Patient Disposition: Home Clinical Impression: Dehydration Condition: Stable Prescriptions: New ondansetron HCl 4 mg tablet 4 mg PO Q6H PRN (Reason: nausea and vomiting) Qty: 20 0RF No Action Humira 40 mg/0.8 mL syringe kit 40 mg SUBCUT Q14D omeprazole magnesium 20 mg capsule,delayed release(DR/EC) 20 mg PO QAM PRN (Reason: Acid Reflux) metoprolol tartrate 25 mg tablet 25 mg PO DAILY vitamin D3-vitamin K2 125 mcg (5,000 unit)-100 mcg capsule PO DAILY bupropion HCl [Wellbutrin XL] 150 mg tablet extended release 24 hr 150 mg PO QAM Qty: 90 1RF Rx Instructions: Brand required aspirin 81 mg Tablet,Delayed Release (Dr/Ec) 81 mg PO DAILY 90 Days Qty: 90 3RF mercaptopurine 50 mg tablet 75 mg PO DAILY Discharge Orders: Discharge ED (Routine); Ordered 09/22/25 Ordered By: Siddhartha Rainey Discharge Diet: Usual diet Discharge Activity: Increase activity as tolerated Patient Instructions: Opioid Safety, Pain Management, Patient Portal & Zeb Instructions Activity Restrictions/Additional Instructions: Thank you for choosing [facility] for your healthcare needs today. It is very important that you follow up as instructed or that you return to the Emergency Department should you have concerns or if your condition changes or worsens in any way. Emergency department visits are focused on emergent conditions, in some cases you may require further evaluation on an outpatient basis. seen in the emergency room with complaints of generally not feeling well weakness and dizziness. Laboratory test showed some mild dehydration but otherwise are unremarkable CT of your head and neck were negative for any signs of acute CVA cardiac enzymes and EKGs were also normal. Will discharge home clinical diet for 24 to 48 hours and follow-up with your primary care doctor. You are also given nausea medications to use as needed you were (Please note that included in your discharge packet is information concerning opioid safety and pain management. This information is given to all patients were discharged from the ER regardless of their discharge diagnosis or the medicines they usually take or are prescribed.) Print Language: Bahamian Coding Level of Care Code ED Health And Physical Education Teacher for Beata Gandhi
--- NOTE | 2025-09-22 16:49 | CTR_ITS ---
PROCEDURE INFORMATION: Exam: CTA Head With Contrast, Arteriography Exam date and time: 09/22/2025 5:38 PM Age: 60 years old Clinical indication: Stroke-like symptoms; Follow up known stroke; Additional info: Posterior CVA TECHNIQUE: Imaging protocol: Computed tomographic angiography of the head with contrast. Exam focused on the arteries. 3D rendering (Not supervised by radiologist): MIP and/or 3D reconstructed images were created by the technologist. Radiation optimization: All CT scans at this facility use at least one of these dose optimization techniques: automated exposure control; mA and/or kV adjustment per patient size (includes targeted exams where dose is matched to clinical indication); or iterative reconstruction. Contrast material: [id number]; Contrast volume: 100 ml; Contrast route: INTRAVENOUS (IV); COMPARISON: CT head wo con* [id number] 09/22/2025 4:21 PM RADIATION DOSE METRICS: Total DLP (mGy-cm): 517.7 FINDINGS: ANTERIOR CIRCULATION: Right internal carotid artery: Intracranial segment is patent with no significant stenosis. No aneurysm. Right middle cerebral artery: No occlusion or significant stenosis. No aneurysm. Right anterior cerebral artery: No occlusion or significant stenosis. No aneurysm. Left internal carotid artery: Intracranial segment is patent with no significant stenosis. No aneurysm. Left middle cerebral artery: No occlusion or significant stenosis. No aneurysm. Left anterior cerebral artery: No occlusion or significant stenosis. No aneurysm. POSTERIOR CIRCULATION: Right vertebral artery: No occlusion or significant stenosis. No aneurysm. Left vertebral artery: No occlusion or significant stenosis. No aneurysm. Basilar artery: No occlusion or significant stenosis. No aneurysm. Right posterior cerebral artery: No occlusion or significant stenosis. No aneurysm. Left posterior cerebral artery: No occlusion or significant stenosis. No aneurysm. Brain: No definite mass, mass effect, or midline shift. Cerebral ventricles: No ventriculomegaly. Bones/joints: Unremarkable. No acute fracture. Soft tissues: Unremarkable. PROCEDURE INFORMATION: Exam: CTA Neck With Contrast Exam date and time: 09/22/2025 5:38 PM Age: 60 years old Clinical indication: Stroke-like symptoms; Follow up known stroke; Additional info: Posterior CVA TECHNIQUE: Imaging protocol: Computed tomographic angiography of the neck with contrast. Exam focused on the cervical segments of the vasculature. 3D rendering (Not supervised by radiologist): MIP and/or 3D reconstructed images were created by the technologist. Radiation optimization: All CT scans at this facility use at least one of these dose optimization techniques: automated exposure control; mA and/or kV adjustment per patient size (includes targeted exams where dose is matched to clinical indication); or iterative reconstruction. Contrast material: [id number]; Contrast volume: 100 ml; Contrast route: INTRAVENOUS (IV); COMPARISON: CT head wo yang* [id number] 09/22/2025 4:21 PM RADIATION DOSE METRICS: Total DLP (mGy-cm): 517.7 FINDINGS: Right common carotid artery: No stenosis. No dissection or occlusion. Right internal carotid artery: No stenosis of the extracranial segment. No dissection or occlusion. Right external carotid artery: No occlusion or stenosis of the origin. Left common carotid artery: No stenosis. No dissection or occlusion. Left internal carotid artery: No stenosis of the extracranial segment. No dissection or occlusion. Left external carotid artery: No occlusion or stenosis of the origin. Right vertebral artery: No stenosis. No dissection or occlusion. Left vertebral artery: No stenosis. No dissection or occlusion. Soft tissues: Normal. No significant soft tissue swelling. Bones/joints: No acute fracture. CT/CT angio headneck* [id number] IMPRESSION: No large vessel stenosis or occlusion. IMPRESSION: No stenosis or occlusion. REFERENCES: NASCET CRITERIA. The degree of stenosis in the cervical segment of the internal carotid artery is based on NASCET criteria. Normal is no stenosis. Mild is less than 50% stenosis. Moderate is 50-69% stenosis. Severe is 70% to 99% stenosis. Total occlusion is no detectable patent lumen.
[2025-09-22 16:54] LABS: Hematocrit 39.8 % (37-53); Hemoglobin 13.20 g/dL (11.27-16.99); Mean Corpuscular HGB Conc 33.2 g/dL (30-55); Mean Corpuscular Hemoglobin 32.2 pg (27-33); Mean Corpuscular Volume 97.1 fl (82-101); Nucleated Red Blood Cells % 0 %; Platelet Count 398 10^3/cmm (157-399); Red Blood Count 4.10 10^6/uL (3.85-5.65); White Blood Count 8.14 10^3/uL (3.29-11.43)
[2025-09-22 17:22] LABS: Troponin(5th) Baseline 21 ng/L (0-15)
[2025-09-22 17:24] LABS: Alanine Aminotransferase 32 U/L (0-41); Albumin Level 4.4 g/dL (3.5-5.2); Alkaline Phosphatase 57 U/L (40-130); Anion Gap 23.3 (5-19); Aspartate Amino Transferase 26 U/L (0-40); Blood Urea Nitrogen 18 mg/dL (8-23); Calcium 9.8 mg/dL (8.5-10.5); Carbon Dioxide 21 mmol/L (22-29); Chloride 97 mmol/L (98-107); Globulin 2.8 g/dL (1.3-4.6); Glucose 80 mg/dL (65-115); Osmolality Calculated 285 mOsm/kg (285-295); Potassium 4.3 mmol/L (3.5-5.1); Sodium 137 mmol/L (136-145); Total Protein 7.2 g/dL (6.6-8.7)
--- NOTE | 2025-09-22 17:36 | ECG_ITS ---
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
[2025-09-22 17:48] LABS: Respiratory Syncytial Virus Ce NEGATIVE (Negative); SARS-CoV-2 PCR NEGATIVE (Negative)
[2025-09-22] MEDS: iohexol 350 mg/mL 500 mL Btl (per mL) IV (17:50)
[2025-09-22 18:31] LABS: Glucose Urine UA Negative (Normal); Nitrate Urine Negative (Negative)
[2025-09-22 18:33] VITALS: BP 168/87; PULSE 78; RESP 18; O2SAT 99
[2025-09-22 18:33] LABS: Add Urine Microscopic? YES
[2025-09-22 18:34] LABS: Specific Gravity, Urine 1.045 (1.005-1.030)
[2025-09-22 20:14] VITALS: BP 156/83; BP 167/86; BP 168/99; PULSE 79; PULSE 87; PULSE 88
== END 2025-09-22 20:50 | disposition home or self-care (01) ==
PROVIDERS: Emergency Provider Family Medicine
DX: E86.0 Dehydration (principal); Z79.82 Long term (current) use of aspirin; Z11.52 Encounter for screening for COVID-19; Z87.891 Personal history of nicotine dependence; E78.5 Hyperlipidemia, unspecified; I25.10 Atherosclerotic heart disease of native coronary artery without angina pectoris
CPT/HCPCS: 36415; 70450; 70496; 70498; 71045; 80053; 81001; 82550; 84484; 85025; 87637; 93005; 99285; J7030

== ENCOUNTER → 2025-09-23 12:05 | Outpatient (BNVA) | payer MEDICARE, SELFPAY | PROVIDERS: Visit Provider Internal Medicine | DX: I25.110 Atherosclerotic heart disease of native coronary artery with unstable angina pectoris (principal); Z87.891 Personal history of nicotine dependence; I25.2 Old myocardial infarction | CPT/HCPCS: 99213 ==